=== PATIENT | female | born 1950 | race Caucasian/White ===

== ENCOUNTER → 2020-04-19 09:54 | Outpatient (BNVA) | payer MEDICARE, MEDICAID, SELFPAY | PROVIDERS: PCP Internal Medicine; Referring Provider Internal Medicine; Visit Provider Surgery | DX: E66.9 Obesity, unspecified (principal); Z68.30 Body mass index [BMI] 30.0-30.9, adult; K91.2 Postsurgical malabsorption, not elsewhere classified; Z98.84 Bariatric surgery status | CPT/HCPCS: 99212 ==

== ENCOUNTER 2020-04-28 09:22 | Outpatient (REF) | payer MEDICARE, MEDICAID, SELFPAY ==
[2020-04-28 11:19] LABS: MANUAL DIFF FLAG NO
[2020-04-28 11:29] LABS: Basophils Percent Auto 0.5 % (0-2); Eosinophils Absolute Auto 0.1 X10*3/uL (0.0-0.4); Hematocrit 38.6 % (37-47); Hemoglobin 12.4 g/dl (12.0-16.0); Imm Gran Abs Auto 0.01 X10*3/uL (0.00-0.03); Imm Gran Pct Auto 0.3 % (0.0-0.4); Lymphocytes Percent Auto 51.3 % (20-40); Mean Corpuscular HGB Conc 32.1 g/dl (31.0-35.0); Mean Corpuscular Hemoglobin 29.3 pg (27.0-33.0); Mean Corpuscular Volume 91.3 fL (80-98); Mean Platelet Volume 10.5 fL (9.4-12.3); Monocytes Absolute Auto 0.3 X10*3/uL (0.1-1.2); Monocytes Percent Auto 7.1 % (2-11); Neutrophils Absolute Auto 1.5 X10*3/uL (2.0-8.3); Neutrophils Percent Auto 37.8 % (45-73); Platelet Count 246 X10*3/uL (160-400); Red Blood Count 4.23 X10*6/uL (4.20-5.50); Red Cell Distribution Width 13.2 % (11.0-16.0)
[2020-04-28 12:12] LABS: Alanine Aminotransferase 14 U/L (0-31); Albumin Level 3.9 g/dL (3.5-5.0); Alkaline Phosphatase 79 U/L (39-117); Aspartate Amino Transferase 17 U/L (5-31); Bilirubin Total 0.5 mg/dL (0.0-1.0); Blood Urea Nitrogen 17 mg/dL (9-16); Cholesterol 182 mg/dL; Estimated Glomerular Filt Rate > 60; Glucose Fasting 89 mg/dL (60-99); HDL Cholesterol 65 mg/dL; Iron 134 mcg/dL (30-160); LDL Cholesterol Calculated 102 mg/dl; Percent Iron Saturation 41 % (15-50); Total Iron Binding Capacity 329 mcg/dL (228-428); Total Protein 6.6 g/dL (6.5-8.0); Triglycerides 75 mg/dL; Unsaturated Iron Binding 195 ug/dL
[2020-04-28 12:36] LABS: Vitamin B12 346 pg/mL (200-900)
[2020-04-28 13:05] LABS: Anion Gap 11 (12-20); Calcium 8.8 mg/dL (8.4-10.2); Carbon Dioxide 27 mmol/L (22-29); Chloride 105 mmol/L (96-108); Potassium 4.2 mmol/l (3.3-5.1); Sodium 139 mmol/L (135-145)
[2020-04-28 13:35] LABS: Vitamin D 25-OH Total 25.7 ng/mL (>30)
[2020-05-03 19:11] LABS: Vitamin B1 12 nmol/L (8-30)
[2020-05-03 19:26] LABS: Vitamin A 46 mcg/dL (38-98)
== END 2020-04-28 09:23 | disposition home or self-care (01) ==
LOC: HO.LAB 09:22
PROVIDERS: Absent Provider Surgery; PCP Internal Medicine; Visit Provider Internal Medicine
DX: Z01.818 Encounter for other preprocedural examination (principal); Z20.828 Contact with and (suspected) exposure to other viral communicable diseases; K91.2 Postsurgical malabsorption, not elsewhere classified; Z90.3 Acquired absence of stomach [part of]
CPT/HCPCS: 36415; 80053; 80061; 82306; 82607; 83540; 84425; 84590; 85025; C9803; U0003

== ENCOUNTER → 2020-07-01 08:21 | Outpatient (BNVA) | payer MEDICARE, MEDICAID, SELFPAY | PROVIDERS: PCP Internal Medicine; Visit Provider Physician Assistant | DX: E66.9 Obesity, unspecified (principal); K91.2 Postsurgical malabsorption, not elsewhere classified; Z90.3 Acquired absence of stomach [part of]; Z68.30 Body mass index [BMI] 30.0-30.9, adult | CPT/HCPCS: Q3014 ==

== ENCOUNTER → 2020-07-13 07:47 | Outpatient (BNVA) | payer MEDICARE, MEDICAID, SELFPAY | PROVIDERS: PCP Internal Medicine; Visit Provider Dietitian, Registered ==

== ENCOUNTER → 2020-08-13 08:29 | Outpatient (BNVA) | payer MEDICARE, MEDICAID, SELFPAY | PROVIDERS: PCP Internal Medicine; Visit Provider Physician Assistant ==

== ENCOUNTER → 2020-09-17 08:16 | Outpatient (BNVA) | payer MEDICARE, MEDICAID, SELFPAY | PROVIDERS: PCP Internal Medicine; Visit Provider Physician Assistant | DX: E66.9 Obesity, unspecified (principal) | CPT/HCPCS: Q3014 ==

== ENCOUNTER → 2020-11-02 11:08 | Outpatient (BNVA) | payer MEDICARE, MEDICAID, SELFPAY | PROVIDERS: PCP Internal Medicine; Visit Provider Physician Assistant | DX: E66.9 Obesity, unspecified (principal); K91.2 Postsurgical malabsorption, not elsewhere classified; Z68.30 Body mass index [BMI] 30.0-30.9, adult; Z90.3 Acquired absence of stomach [part of] | CPT/HCPCS: 99212 ==

== ENCOUNTER → 2021-01-25 10:03 | Outpatient (BNVA) | payer MEDICARE, MEDICAID, SELFPAY | PROVIDERS: PCP Internal Medicine; Referring Provider Internal Medicine; Visit Provider Dietitian, Registered | DX: E66.9 Obesity, unspecified (principal); Z68.32 Body mass index [BMI] 32.0-32.9, adult | CPT/HCPCS: 97803 ==

== ENCOUNTER 2021-06-30 11:32 | Outpatient (REF) | payer MEDICARE, MEDICAID, SELFPAY ==
[2021-06-30 12:58] LABS: MANUAL DIFF FLAG NO
[2021-06-30 13:21] LABS: Basophils Percent Auto 0.3 % (0-2); Eosinophils Absolute Auto 0.1 X10*3/uL (0.0-0.4); Hematocrit 39.5 % (37.0-47.0); Hemoglobin 12.9 g/dl (12.0-16.0); Imm Gran Abs Auto 0.01 X10*3/uL (0.00-0.03); Imm Gran Pct Auto 0.2 % (0.0-0.4); Lymphocytes Absolute Auto 2.4 X10*3/uL (1.2-4.9); Mean Corpuscular HGB Conc 32.7 g/dl (31.0-35.0); Mean Corpuscular Hemoglobin 29.4 pg (27.0-33.0); Mean Platelet Volume 10.1 fL (9.4-12.3); Monocytes Absolute Auto 0.5 X10*3/uL (0.1-1.2); Monocytes Percent Auto 7.9 % (2-11); Neutrophils Absolute Auto 2.9 x10*3/uL (2.0-8.3); Neutrophils Percent Auto 49.6 % (45-73); Platelet Count 312 X10*3/uL (160-400); Red Blood Count 4.39 X10*6/uL (4.20-5.50); Red Cell Distribution Width 12.6 % (11.0-16.0); White Blood Count 5.9 X10*3/uL (4.8-10.8)
[2021-06-30 13:41] LABS: Estimated Average Glucose 108 mg/dL; Hemoglobin A1c % 5.4 %
[2021-06-30 14:02] LABS: Alanine Aminotransferase 12 U/L (0-31); Alkaline Phosphatase 89 U/L (39-117); Anion Gap 12 (12-20); Aspartate Amino Transferase 17 U/L (5-31); Bilirubin Total 0.4 mg/dL (0.0-1.0); Blood Urea Nitrogen 15 mg/dL (9-16); C Reactive Protein 0.25 mg/dL (< or = 0.50); Calcium 9.9 mg/dL (8.4-10.2); Carbon Dioxide 28 mmol/L (22-29); Chloride 106 mmol/L (96-108); Cholesterol 202 mg/dL; Estimated Glomerular Filt Rate > 60; Glucose Fasting 90 mg/dL (60-99); HDL Cholesterol 68 mg/dL; Iron 78 mcg/dL (30-160); LDL Cholesterol Calculated 118 mg/dl; Percent Iron Saturation 22 % (15-50); Potassium 4.3 mmol/L (3.3-5.1); Sodium 142 mmol/L (135-145); Total Iron Binding Capacity 362 mcg/dL (228-428); Total Protein 7.4 g/dL (6.5-8.0); Triglycerides 83 mg/dL; Unsaturated Iron Binding 284 ug/dL
[2021-06-30 14:24] LABS: Ferritin 25 ng/mL (10-250); TSH reflex Free T4 0.52 uIU/mL (0.32-4.0); Vitamin D 25-OH Total 25.6 ng/mL (>30)
[2021-06-30 14:59] LABS: Vitamin B12 317 pg/mL (200-900)
[2021-07-01 18:01] LABS: Calcium (PTHI) 9.6 mg/dL (8.6-10.4); PTHI 65 pg/mL (14-64)
[2021-07-05 21:06] LABS: Vitamin A 27 mcg/dL (38-98)
[2021-07-06 01:52] LABS: Zinc 78 mcg/dL (60-130)
[2021-07-06 16:31] LABS: Vitamin B1 10 nmol/L (8-30)
== END 2021-06-30 11:33 | disposition home or self-care (01) ==
LOC: HO.LAB 11:32
PROVIDERS: Physician Assistant; PCP Internal Medicine; Referring Provider Internal Medicine; Visit Provider Physician Assistant Surgical
DX: K91.2 Postsurgical malabsorption, not elsewhere classified (principal); E66.01 Morbid (severe) obesity due to excess calories; Z68.30 Body mass index [BMI] 30.0-30.9, adult; E03.9 Hypothyroidism, unspecified; Z90.3 Acquired absence of stomach [part of]
CPT/HCPCS: 36415; 80053; 80061; 82306; 82607; 82728; 82746; 83036; 83540; 83970; 84425; 84443; 84590; 84630; 85025; 86140; 99212

== ENCOUNTER → 2021-08-09 08:08 | Outpatient (BNVA) | payer MEDICARE, MEDICAID, SELFPAY | PROVIDERS: PCP Internal Medicine; Visit Provider Dietitian, Registered | DX: E66.9 Obesity, unspecified (principal) | CPT/HCPCS: 97803 ==

== ENCOUNTER 2024-03-10 09:54 | Outpatient (REF) | payer MEDICARE, MEDICAID, SELFPAY ==
[2024-03-10 16:53] LABS: Bacterial Vaginosis PCR NEGATIVE (Negative); Candida Group PCR NOT DETECTED (Not Detect); Candida glab krusei PCR NOT DETECTED (Not Detect); Trichomonas vaginalis PCR NOT DETECTED (Not Detect)
[2024-03-10 17:16] LABS: CT PCR NOT DETECTED (Not Detect.); NG PCR NOT DETECTED (Not Detect.)
[2024-03-12 18:24] LABS: HPV mRNA E6/E7 Not Detected (Not Detected)
== END 2024-03-10 09:55 | disposition home or self-care (01) ==
LOC: HO.LNP 09:54
PROVIDERS: PCP Internal Medicine; Visit Provider Obstetrics & Gynecology
DX: N89.8 Other specified noninflammatory disorders of vagina (principal)
CPT/HCPCS: 0352U; 87491; 87591; 87624; 88175; 99202

== ENCOUNTER 2024-03-10 09:54 | Outpatient (AMB) | payer MEDICARE, MEDICAID, SELFPAY ==
--- NOTE | 2024-03-10 10:20 | MHC.OFFVIS ---
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 Information Interpreted: non-clinical & clinical Denture Model Maker: Denture Model Maker Present (Evonne SHEIKH) Accompanied by: Self / Same As Patient Allergies meperidine [From DEMEROL] Allergy (Unknown, Unverified 03/10/24 10:26) NAUSEA/VOMITING metaxalone [From SKELAXIN] Allergy (Unknown, Unverified 03/10/24 10:26) HIVES Sulfa (Sulfonamide Antibiotics) [SULFA (SULFONAMIDE ANTIBIOTICS)] Allergy (Unknown, Unverified 03/10/24 10:26) NAUSEA/VOMITING PLASTIC TAPE Allergy (Unknown, Uncoded 03/10/24 10:26) REDNESS Post menopausal: Yes HPI Comments Details: Presenting complaining of a history of vaginal discharge for 2 days last week. The discharge was greenish in color with no blood, associated with pelvic cramping. No other associated symptoms. Last Pap smear was in 03 negative [facility] Medical History Rheumatoid arthritis Obesity (BMI 30-39.9) Hypothyroidism Polymyalgia Restless legs syndrome Pernicious anemia Neuralgia Plantar fasciitis Depression Anxiety Sleep apnea with use of continuous positive airway pressure (CPAP) GERD (gastroesophageal reflux disease) Erosive (osteo)arthritis Chronic ear infection Chronic sinus infection Herpes Traumatic diastasis of symphysis pubis Surgical History History of repair of hiatal hernia History of sleeve gastrectomy Hx of colonoscopy S/P cataract surgery S/P trigger finger release S/P D&C (status post dilation and curettage) S/P Achilles tendon repair Hx laparoscopic cholecystectomy Hx of tubal ligation Family History Father Heart disease Mother Heart disease Hx of CABG Lung cancer Brother No problems noted. Brother No problems noted. Brother No problems noted. Brother No problems noted. Brother No problems noted. Brother No problems noted. Sister No problems noted. Sister No problems noted. Sister No problems noted. Son No problems noted. Daughter No problems noted. Social History Alcohol intake: never Patient Tobacco Use Status: Never used Tobacco Review of Systems Const All systems reviewed & are unremarkable except as noted in HPI and below Physical Exam General: Yes no CVA tenderness External Female Exam: normal external appearance and normal appearance of the urethra Speculum Exam - Vagina: normal appearance of the vagina, normal palpation, no lesions and no masses Speculum Exam - Cervix: normal appearance of the cervix, normal palpation, no lesions, no masses and nontender Bimanual exam- vagina & uterus: normal bimanual exam, normal palpation, uterine size normal, normal palpation, uterine shape normal, No Cervical tenderness present and non-tender Bimanual Exam- Adnexa, other: normal adnexae Back/Spine/Pelvis Back: no CVA tenderness Assessment & Plan Assessment & Plan (1) Vaginal discharge: Code(s): N89.8 - Other specified noninflammatory disorders of vagina Category: Medical Plan: GC/CT with BV panel and pelvic ultrasound ordered. Instructions given the patient to schedule pelvic ultrasound and a follow-up appointment within 2 weeks. All questions answered, the patient verbalized understanding Orders: Orders US pelvic and transvaginal Today N89.8 - Other specified noninflammatory disorders of vagina Coding Level of Care Code New Pt Level 3 (10730) Diagnoses Vaginal discharge N89.8
[2024-03-10 10:25] VITALS: BP 122/86; BMI 32.7
== END 2024-03-10 10:48 | disposition home or self-care (01) ==
PROVIDERS: PCP Internal Medicine; Visit Provider Obstetrics & Gynecology
DX: N89.8 Other specified noninflammatory disorders of vagina (principal)
CPT/HCPCS: 99203

== ENCOUNTER 2024-03-14 10:55 | Outpatient (REF) | payer MEDICARE, MEDICAID, SELFPAY ==
--- NOTE | ~2024-03-14 | US_ITS ---
EXAMINATION: US PELVIS CLINICAL INFORMATION: Vaginal discharge. COMPARISON: None available. TECHNIQUE: Ultrasound of the pelvis is performed using both transabdominal and transvaginal transducers. Transvaginal imaging is performed due to inadequate visualization transabdominally. FINDINGS: Uterus: The uterus is retroverted and measures 5.3 x 2.3 x 3.4 cm. The double wall endometrial thickness is 2 mm. The uterus is smooth in contour and has normal myometrial echogenicity. No visible fibroid. Adnexa: Both ovaries are visualized. There is trace pelvic fluid. Right ovary measures 1.6 x 1.3 x 0.8 cm for a volume of 0.9 mL. Left ovary measures 1.3 x 1.4 x 0.9 cm for a volume of 0.9 mL. US/US pelvic and transvaginal IMPRESSION: Unremarkable pelvic ultrasound. Electronically signed by: Alonzo Andrade MD 05/01/2024 12:24 PM MALOU
== END 2024-03-14 10:56 | disposition home or self-care (01) ==
LOC: HO.US 10:55
PROVIDERS: PCP Internal Medicine; Visit Provider Obstetrics & Gynecology
DX: N89.8 Other specified noninflammatory disorders of vagina (principal)
CPT/HCPCS: 76830; 76856

== ENCOUNTER 2024-08-11 10:25 | Outpatient (AMB) | payer MEDICARE, MEDICAID, SELFPAY ==
--- NOTE | 2024-08-11 10:27 | MHC.OFFVIS ---
Intake Visit Reasons: u/s follow up Stevedore Hold: Stevedore Hold Present (Chelsea) Accompanied by: Self / Same As Patient Allergies meperidine [From DEMEROL] Allergy (Unknown, Verified 08/11/24 10:28) NAUSEA/VOMITING metaxalone [From SKELAXIN] Allergy (Unknown, Verified 08/11/24 10:28) HIVES Sulfa (Sulfonamide Antibiotics) [SULFA (SULFONAMIDE ANTIBIOTICS)] Allergy (Unknown, Verified 08/11/24 10:28) NAUSEA/VOMITING PLASTIC TAPE Allergy (Unknown, Uncoded 03/10/24 10:26) REDNESS HPI Comments Details: Presenting for follow-up regarding vaginal discharge. Since then discharge has resolved completely, the patient is complaining of urine incontinence upon coughing laughing or lifting heavy objects no urgency or urge incontinence no dysuria. The workup done included co testing negative, GC/CT with BV panel negative. Pelvic ultrasound showed the following: Uterus: The uterus is retroverted and measures 5.3 x 2.3 x 3.4 cm. The double wall endometrial thickness is 2 mm. The uterus is smooth in contour and has normal myometrial echogenicity. No visible fibroid. Adnexa: Both ovaries are visualized. There is trace pelvic fluid. Right ovary measures 1.6 x 1.3 x 0.8 cm for a volume of 0.9 mL. Left ovary measures 1.3 x 1.4 x 0.9 cm for a volume of 0.9 mL. [facility] Medical History Rheumatoid arthritis Obesity (BMI 30-39.9) Hypothyroidism Polymyalgia Restless legs syndrome Pernicious anemia Neuralgia Plantar fasciitis Depression Anxiety Sleep apnea with use of continuous positive airway pressure (CPAP) GERD (gastroesophageal reflux disease) Erosive (osteo)arthritis Chronic ear infection Chronic sinus infection Herpes Traumatic diastasis of symphysis pubis Surgical History History of repair of hiatal hernia History of sleeve gastrectomy Hx of colonoscopy S/P cataract surgery S/P trigger finger release S/P D&C (status post dilation and curettage) S/P Achilles tendon repair Hx laparoscopic cholecystectomy Hx of tubal ligation Family History Father Heart disease Mother Heart disease Hx of CABG Lung cancer Brother No problems noted. Brother No problems noted. Brother No problems noted. Brother No problems noted. Brother No problems noted. Brother No problems noted. Sister No problems noted. Sister No problems noted. Sister No problems noted. Son No problems noted. Daughter No problems noted. Social History Alcohol intake: never Patient Tobacco Use Status: Never used Tobacco Review of Systems Const All systems reviewed & are unremarkable except as noted in HPI and below Reports as per HPI and Reports no additional complaints GI Reports no additional complaints Reports no additional complaints Assessment & Plan Assessment & Plan (1) Vaginal discharge: Comment: Resolved Code(s): N89.8 - Other specified noninflammatory disorders of vagina Category: Medical Plan: Discussed with the patient the results of the GC/CT with BV panel , co testing and pelvic ultrasound. The patient was reassured. Instructions given the patient to call in case any vaginal bleeding, or if vaginal discharge symptoms recur. All questions answered, the patient verbalized understanding (2) Urine incontinence: Code(s): R32 - Unspecified urinary incontinence Category: Medical Plan: Discussed with the patient the different types of Urine incontinence, stress urinary incontinence, intrinsic sphincter deficiency, overactive bladder and its work up. We will refer to Urology. All questions answered, the patient verbalized understanding. Orders: Referrals Urology Referral R32 - Unspecified urinary incontinence Coding Level of Care Code Est Pt Level 3 (05528) Diagnoses Vaginal discharge N89.8 Urine incontinence R32
--- OUTSIDE RECORDS SUMMARY | 2024-08-11 11:42 | XMS_ITS | Continuity of Care Document ---
Author Organization [facility] [address] [place] [address] Phone [phone] Care Team Providers Care Blueprint Clerk Name Role Phone Jose Quintero M.D. Care Team Information Recei yareli [phone] Problems Active Problems Provider Date Gastroesophageal reflux disease Kristy Taylor M.D. Onset: 08/16/2022 Osteoporosis Kristy Szymanski M.D. Ons et: 08/16/2022 Multinodular goiter Kristy Szymanski M.D. Onset: 08/16/2022 Polymyalgia rheumatica Freddy Ribeiro Onset: 08/16/2022 Depressive disorder Kristy Szymanski M.D. Onset: 08/16/2022 Obesity Kristy Szymanski M.D. Ons et: 08/16/2022 Localized, primary osteoarth ritis of the hand Kristy Szymanski M.D. Onset: 08/16/2022 Subclinical hyperthyroidism Kristy clemons M.D. Onset: 08/18/2022 Obstructive sleep apnea syndrome Kristy Muhammad M.D. 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 02/24/2024 Calcium 600 + [id number] Tablets 1 by mouth every day Kristy Szymanski M.D. 02/24/2024 Escitalopram [id number] Tablets Take 1 & 1/2 Tablets By Mouth Daily Jose Quintero M.D. Pramipexole Dihydrochloride0.125mg Tablets Take 2 Tablets By Mouth AT Bedtime Unknown [id number] Capsules Take One Capsule By Mouth Twice A Day leonardn Naveen Watkins, [id number] Tablets Take 1 Tablet By Mouth Twice Weekly Jose Quintero M.D. Diclofenac Sodium1% Gel Apply 4 Times A Day as Needed For Pain Unknown Atorvastatin [id number] Tablets Take One Tablet By Mouth Every Day Unknown Pvnulkh2oe/100ML Solution 06/2019, 10/2020, 08/2022 Kristy Szymanski M.D. [id number] Capsules DR 1 every day as needed Unknown Steph [id number] Tablets 1 by mouth every day Unknown Vital Signs Date Vital Result Comment 02/07/2024 2:34pm BP Systolic 118 mmHg BP Diastolic 76 mmHg Heart Rate 82 /min Height 58.5 inches 4'10.50 Weight 199.00 lb BMI (Body Mass Index) 40.9 kg/m2 Results Test Acquired Date Facility Test Result H/L Range N ote Basic Metabolic Panel (8) 02/12/2024 [facility] Glucose 96 mg/dL 70-99 BUN 15 mg/dL 8-27 Creatinine 0.60 mg/dL 0.57-1.00 eGFR 96 mL/min/1.7 3 >59 BUN/Creatinine Ratio 25 12-28 Sodium 141 mmol/L 134-144 Potassium 4.5 mmol/L 3.5-5.2 Chloride 106 mmol/L 96-106 Carbon Dioxide, Total 23 mmol/L 20-29 Calcium 9.2 mg/dL 8.7-10.3 Laboratory test finding 02/12/2024 [facility] TSH Rfx on Abnormal to Free T4 1.070 uIU/mL 0.450-4.5 00 Vitamin D, 25-Hydroxy, Total 25 ng/mL Low 1 Laboratory test finding 02/11/2024 [facility] TSH RFX On Abnormal To Free T4 <pending> Vitamin D 25 Hydroxy Esoterix <pending> Basic Metabolic Panel 08/18/2022 [facility] Glucose 94 mg/dL (70-99) BUN 19 mg/dL (8-23) Creatinine 0.5 mg/dL (0.5-1.0) Sodium 141 mmol/L (133-145) Potassium 4.1 mmol/L (3.6-5.2) Chloride 104 mmol/L (98-107) Bicarbonate 30 mmol/L High (22-29) Anion Gap 7 (4-17) Calcium 9.8 mg/dL (8.6-10.5 ) Estimated GFR Creatinine 100 ML/MIN/1.7 3M2 2 Laboratory test finding 08/18/2022 [facility] 25Oh Vitamin D 23.4 NG/ML (20-50) TSH With Reflex To FT4 1.17 uIU/mL (0.4-4.2) Albumin 4.2 GM/DL (3.4-4.8) 1 Reference Range: All Ages: Target levels 30 - 100 2 Creatinine based est imated glomerular filtration (eGFR) in adults is calculated using the [employer] recommended 2020 CKD-EPI equation. Estimates GFR from serum creatinine, age and sex. Procedures Date Code Description Status 02/21/2023 NSHOWOFF No Show Office Visit Complet ed 08/18/2022 01930 Collection Of Venous Blood B y Venipuncture Completed Medical Devices Description No Information Available Encounters Type Date Location Provider Dx Diagnosis Office Visit 02/07/2024 2:30p Main Office Kristy Szymanski M.D. E04.2 Nontoxic multinodular goiter M81.0 Age-related osteopor osis w/o current pathological fracture E05.90 Thyrotoxicosis, unsp without thyrotoxic crisis or storm Assessments Date Code Description Provider 02/07/2024 E04.2 Nontoxic multinodular goiter Kristy Szymanski M.D. 02/07/2024 M81.0 Age-related oste oporosis without current pathological fracture Kristy Szymanski M.D. 02/07/2024 E05.90 Thyrotoxicosis, unspecified without thyrotoxic crisis or storm Kristy Szymanski M.D. Plan of Treatment 08/18/2022 - Kristy Szymanski M.D.* E04.2 Nontoxic multinodular goiter * M81.0 Age-related osteoporosis without current pathological fracture * E05.90 Thyrotoxicosis, unspecified without thyrotoxic crisis or storm* New Xrays:* Ultrasound Head And Neck Soft Tissues, Scheduled: 09/12/22 Functional Status Description No Information Available Mental Status Description No Information Available Referrals Description No Information Available
--- OUTSIDE RECORDS SUMMARY | 2024-08-11 11:43 | XMS_ITS | Data Portability ---
Author Organization [place] - [facility], Allergy Address [address] [address] Care Team Providers Care [employer] Name Role Phone CAROLA YEPEZ Primary Care Provider [phone] Assessment Encounter Date Assessment Date Assessment LastModified by Organization Details LastModified Time 11/21/2023 11/21/2023 72 year old female presents today for evaluation of one year of hoarseness. She is a lifetime non smoker. Medical history significant for GERD, allergies and KECIA. Fiberoptic laryngoscopy completed today demonstrates reflux changes; postcricoid swelling, interarytenoid thickening and moderate swelling of the true cords. There is some sticky mucus noted as well. Recommend adding a Pepcid at bedtime, given she is still having breakthrough heartburn symptoms despite Nexium. Also encouraged her to drink more water during the day. We will plan on follow up in six weeks. If no improvement, may refer her back to her GI physician for better reflux control. po Not available 11/21/2023 12:06:22 01/16/2024 01/16/2024 73 year old female with chronic hoarseness, improved with adding Pepcid to her PPI therapy. Recommend she continue with current regimen since it is working well for her. She understands that she needs to follow up yearly if we are going to continue to prescribe this medication, or she can have her PCP take over. po Not available 01/16/2024 13:39:47 Plan of Treatment Reminders Order Date Submit Date Provider Last Modified By Organization Details Last Modified Time Details Appointments None recorded. Lab None recorded. Referral None recorded. Procedures None recorded. Surgeries None recorded. Imaging None recorded. Medication Orders famotidine 20 mg tablet 2023 024 [id number], [address] [place], [address], 4 13:40:03 famotidine 20 mg tablet 2023 [facility], [address] [place], [address], 4 11:43:18 Patient TargetsNo targets recorded. Patient InstructionsNo instructions recorded. Reason for Referral None Reported. Problems Name Problem SNOMED Code Status Onset Date Resolution Date Notes Provider Name and Address Organization Details Recorded Time Otorrhea of right ear 72942489706 55175 Active 2016 Otorrhea, right ear; Note: Date Diagnosed : 04/19/2017 2:28 PM (H92.11) Not Available [facility] 4 02:56:19 Acute sialoaden itis 002486223 Active 2016 Acute sialoaden itis; Note: Date Diagnosed : 11/14/2016 4:37 PM (K11.21) Not Available [facility] 4 02:56:21 Acute serous otitis media of left ear 65460889096 70061 Active 2016 Acute serous otitis media, left ear; Note: Date Diagnosed : 11/14/2016 4:37 PM (H65.02) Not Available [facility] 4 02:56:20 Difficult y speaking Active 2014 Hoarsenes s; Note: Date Diagnosed : 01/21/2015 11:40 AM (784.49) Not Available [facility] hospital 4 02:56:21 Diffuse otitis externa 75775854 Active 2016 Diffuse otitis externa, right ear; Note: Date Diagnosed : 04/19/2017 2:31 PM (H60.311) Diffuse otitis externa, left ear; Note: Date Diagnosed : 11/14/2016 4:44 PM (H60.312) ; Start Date : 7 Not Available [facility] hospital 4 02:56:21 Sensorine ural hearing loss of bilateral ears 855994534 Active 2017 Sensorine ural hearing loss, bilateral ; Note: Date Diagnosed : 12/17/2017 3:37 PM (H90.3) Not Available [facility] 4 02:56:23 Benign paroxysma l positiona l vertigo 177584203 Active 2016 Benign paroxysma l vertigo, right ear; Note: Date Diagnosed : 07/26/2016 3:00 PM (H81.11) Not Available [facility] 4 02:56:22 Cough 10983262 Active 2018 Cough; Note: Date Diagnosed : 06/25/2018 3:22 PM (R05) Not Available [facility] 4 02:56:22 Obstructi ve sleep apnea syndrome 59523478 Active 2016 Obstructi ve sleep apnea (adult) (pediatri c); Note: Date Diagnosed : 03/07/2017 10:47 AM (G47.33) Not Available [facility] hospital 4 02:56:22 Candidal otitis externa 89748961 Active 2016 Candidal otitis externa; Note: Date Diagnosed : 07/26/2016 3:02 PM (B37.84) Not Available [facility] hospital 4 02:56:22 Atypical facial pain 40002383 Active 2016 Atypical facial pain; Note: Date Diagnosed : 03/07/2017 10:47 AM (G50.1) Not Available [facility] 4 02:56:20 Refractor y migraine 785565549 Active 2016 Other migraine, intractab le, without status migrainos us; Note: Date Diagnosed : 03/07/2017 10:46 AM (G43.819) Not Available Critical [facility] hospital 4 02:56:23 Dizziness and giddiness 793423435 Active 2016 Dizziness and giddiness ; Note: Date Diagnosed : 03/07/2017 10:46 AM (R42) Not Available [facility] 4 02:56:20 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 - [facility] 4 11:42:41 Chronic hoarsenes s 31431696894 05 Active 2023 RAMYA JOHNSON PA-C [address] [facility],[place] [address], [place], [address] , [facility] - [facility] 12:03:51 Problem Notes None recorded. Procedures Surgical History Date Name Laterality Status Provider Name and Address Organization Details Recorded Time 11/21/19 24 Fiberoptic Laryngoscopy (Comprehensive) completed RAMYA JOHNSON PA-C [address] [facility],[place] [address], [place], [address], [facility] - [facility] [place] 11/21/2023 12:03:39 02/17/20 02 procedure on gallbladder completed Manisha Nam [place] - [facility] [place] 11/21/2023 11:37:34 11/17/19 00 laparoscopic sleeve gastrectomy completed Manisha Nam [place] - [facility] [place] 11/21/2023 11:37:59 Imaging Results None recorded. Procedure Notes None recorded. Medical Equipment None Reported. Allergies Allergen ID Allergen Name Allergen Category Reaction Reaction Severity Criticality Documentation Date Start Date Code Code System Note Provider Name and Address Organization Details Recorded Time 566097 meperidin e hydrochlo ride medicatio n other Not available Not available 10/30/2023 35526 5 RxNorm React ion: unkno wn, unspe cifie d;; Not Available [facility] 4 01:25:00 726640 Demerol medicatio n Not available Not available Not available 11/21/2023 50050 1 RxNorm Manisha martinez [place] - [facility] 4 11:31:28 368503 morphine medicatio n Not available Not available Not available 11/21/2023 7052 RxNorm Manisha Cyril martinez [place] - [facility] 4 11:31:41 Medications Name Sig Start Date Stop Date Status Note LastModified by Organization Details LastModified Time celecoxib 200 mg capsule TAKE ONE CAPSULE BY MOUTH EVERY DAY NEEDED FOR PAIN active Not Available Not Available No t Available neomycin- polymyxin -hydrocor t 3.5 mg/mL-10, 000 unit/mL-1 % ear solution 2016 active Medicati on ID: [id number] D uration Value: 10 Brand Name: neomycin -polymyx in-HC Se nd Method: E-Prescr ibed Sub s Allowed: subs ADIN ventura Instruct ion: INSTILL 4 DROPS FOUR TIMES A DAY DIRECTED FOR 7 DAYS Med icationG enericNa me: neomycin -polymyx in-HC Not Available Not Available Not Available prednison e 10 mg tablet TAKE FOUR TABLETS BY MOUTH EVERY DAY FOR 5 DAYS active Not Available Not Available No t Available doxycycli ne hyclate 100 mg capsule TAKE ONE CAPSULE BY MOUTH TWICE A DAY FOR 14 DAYS active Not Available Not Available No t Available loperamid e 2 mg capsule TAKE 1 CAPSULE BY MOUTH EVERY 4 HOURS NEEDED FOR LOOSE STOOL active Not Available Not Available No t Available trazodone 50 mg tablet 11/20 completed Medicati on ID: [id number] D uration Value: 30 Brand Name: trazodon e Send Method: E-Prescr ibed Sub s Allowed: subs ADIN ventura Instruct ion: TAKE 1-2 TABLETS BY MOUTH AT BEDTIME Medicati onGeneri cName: trazodon e Medica tion ID: [id number] D uration Value: 30 Brand Name: trazodon e Send Method: E-Prescr ibed Sub s Allowed: subs ADIN ventura Instruct ion: TAKE 1-2 TABLETS BY MOUTH AT BEDTIME Medicati onGeneri cName: trazodon e Not Available Not Available Not Available cetirizin e 10 mg tablet TAKE ONE TABLET BY MOUTH EVERY DAY active Not Available Not Available No t Available azithromy chau 250 mg tablet TAKE 2 TABLETS ON FIRST DAY , THEN 1 TABLET DAILY FOR 4 DAYS 11/20 completed Not Available Not Available Not Available Lotrisone 1 %-0.05 % topical cream 11/20 completed Medicati on ID: [id number] P koryrishelby d By Name: Kristy RENAY Hoang nd Name: Lotrison e Send Method: E-Prescr ibed Sub s Allowed: subs OK Speci al Instruct ion: apply to external ear tid X 2 weeks Me dication GenericN paul: Lotrison e Medica tion ID: [id number] P rescribe d By Name: RENAY Nance nd Name: Lotrison e Send Method: E-Prescr ibed Sub s Allowed: subs OK Specozzie al Instruct ion: apply to external ear tid X 2 weeks Me dication GenericN paul: Lotrison e Not Available Not Available Not Available prednison e 20 mg tablet TAKE TWO TABLETS BY MOUTH EVERY DAY FOR 5 DAYS 11/20 completed Not Available Not Available Not Available tramadol 50 mg tablet TAKE ONE TABLET BY MOUTH TWO TIMES A DAY NEEDED active Not Available Not Available No t Available Prevacid 30 mg capsule,d elayed release 2016 active Medicati on ID: [id number] B rand Name: Prevacid Send Method: E-Prescr ibed Sub s Allowed: subs OK Medic ationGen ericName : Prevacid Not Available Not Available Not Available Macrobid 100 mg capsule 2016 active Medicati on ID: [id number] B rand Name: Macrobid Send Method: E-Prescr ibed Sub s Allowed: subs OK Medic ationGen ericName : Macrobid Not Available Not Available Not Available ofloxacin 0.3 % ear drops 11/14 completed Medicati on ID: [id number] Du ration Value: 10 Reason: () Brand Name: ofloxaci n Send Method: E-Prescr ibed Sub s Allowed: subs OK Medic ationGen ericName : ofloxaci n Not Available Not Available Not Available famotidin e 20 mg tablet TAKE ONE TABLET BY MOUTH EVERY DAY AT BEDTIME active Not Available Not Available No t Available ropinirol e 0.25 mg tablet 2016 active Medicati on ID: [id number] D uration Value: 30 Brand Name: ropiniro le Send Method: E-Prescr ibed Sub s Allowed: subs OK Speci al Instruct ion: TAKE TWO TABLETS BY MOUTH ONCE DAILY AT BEDTIME Medicati onGeneri cName: tato le Not Available Not Available Not Available doxycycli ne monohydra te 100 mg capsule 05/22 completed Medicati on ID: [id number] Du ration Value: 10 Brand Name: doxycycl ine monohydr ate Send Method: E-Prescr ibed Sub s Allowed: subs OK Medic ationGen ericName : doxycycl ine monohydr ate Not Available Not Available Not Available prednison e 50 mg tablet TAKE ONE TABLET BY MOUTH EVERY DAY FOR 5 DAYS active Not Available Not Available No t Available lidocaine 5 % topical patch APPLY ONE PATCH EXTERNAL LY EVERY DAY FOR 12 HOURS ON AND 12 HOURS OFF FOR 15 DAYS active Not Available Not Available No t Available polymyxin B sulfate 10,000 unit-trim ethoprim 1 mg/mL eye drops INSTILL TWO DROPS TO THE AFFECTED EYE S) FOUR TIMES A DAY FOR 7 DAYS active Not Available Not Available No t Available clotrimaz ole 1 % topical solution 05/22 completed Medicati on ID: [id number] P rescribe d By Name: RENAY Nance nd Name: clotripushpa bess Method: E-Prescr ibed Sub s Allowed: subs OK Speci al Instruct ion: 4 drops to affected ear three times a day X 14 days Med icationG enericNa me: clotrima zole Not Available Not Available Not Available pramipexo le 0.125 mg tablet TAKE TWO TABLETS BY MOUTH EVERY EVENING AT BEDTIME active Not Available Not Available No t Available furosemid e 20 mg tablet 11/20 completed Medicati on ID: [id number] D uration Value: 30 Brand Name: furosemi de Send Method: E-Prescr ibed Sub s Allowed: subs OK Speci al Instruct ion: TAKE 1 TO 2 TABLETS ONCE DAILY BY MOUTH Me dication GenericN paul: furosemi de Medic ation ID: [id number] D uration Value: 30 Brand Name: furosemi de Send Method: E-Prescr ibed Sub s Allowed: subs OK Speci al Instruct ion: TAKE 1 TO 2 TABLETS ONCE DAILY BY MOUTH Me dication GenericN paul: furosemi de Not Available Not Available Not Available gabapenti n 100 mg capsule Take 1 capsule 3 times a day by oral route. active Not Available Not Available No t Available ferrous sulfate 325 mg (65 mg iron) tablet,de layed release TAKE ONE TABLET BY MOUTH EVERY DAY active Not Available Not Available No t Available colchicin e 0.6 mg tablet TAKE 1 TABLET BY MOUTH TWICE DAILY FOR 7 DAYS active Not Available Not Available No t Available fluticaso ne propionat e 50 mcg/actua tion nasal spray,kendall pension USE 1 SPRAY IN EACH NOSTRIL TWO TIMES A DAY active Not Available Not Available No t Available naproxen 500 mg tablet TAKE ONE TABLET BY MOUTH EVERY 12 HOURS WITH FOOD OR MILK active Not Available Not Available No t Available amoxicill in 875 mg-potass ium clavulana te 125 mg tablet TAKE ONE TABLET BY MOUTH EVERY 12 HOURS FOR 10 DAYS 11/20 completed Not Available Not Available Not Available Ventolin HFA 90 mcg/actua tion aerosol inhaler USE 2 INHALATI ONS EVERY 4-6 HOURS NEEDED FOR DYSPNEA DIRECTED active Not Available Not Available No t Available oxycodone 5 mg tablet TAKE ONE TABLET BY MOUTH EVERY 6 HOURS FOR 3 DAYS NEEDED FOR PAIN active Not Available Not Available No t Available TobraDex 0.3 %-0.1 % eye drops,kendall pension 4 drop 11/20 completed Medicati on ID: [id number] D uration Value: 14 Prescri bed By Name: RENAY Cardenas nd Name: TobraDex Send Method: E-Prescr ibed Sub s Allowed: subs OK Speci al Instruct ion: apply to right ear as prescrib ed Medic [facility] ericName : TobraDex Medicat ion ID: [id number] D uration Value: 14 Prescri bed By Name: RENAY Cardenas nd Name: TobraDex Send Method: E-Prescr ibed Sub s Allowed: subs OK Speci al Instruct ion: apply to right ear as prescrib ed Medic [facility] ericName : TobraDex Not Available Not Available Not Available escitalop raul 20 mg tablet TAKE 1 AND 1/2 TABLETS BY MOUTH ONCE A DAY active Not Available Not Available No t Available cyclobenz aprine 5 mg tablet TAKE 1 TABLET BY MOUTH 3 TIMES A DAY FOR 3 DAYS 11/20 completed Not Available Not Available Not Available Ciprodex 0.3 %-0.1 % ear drops,kendall pension 4 drop 11/20 completed Medicati on ID: [id number] D uration Value: 14 Prescri bed By Name: RENAY Cardenas nd Name: Ciprodex Send Method: E-Prescr ibed Sub s Allowed: subs OK Medic ationGen ericName : Ciprodex Medicat ion ID: [id number] D uration Value: 14 Prescri bed By Name: RENAY Cardenas nd Name: Ciprodex Send Method: E-Prescr ibed Sub s Allowed: subs OK Medic ationGen ericName : Ciprodex Not Available Not Available Not Available Celebrex active Not Available Not Avai lable Not Available Miralax active Not Available Not Avail able Not Available Nexium active Not Available Not Availa ble Not Available Lexapro active Not Available Not Avail able Not Available Plenvu 140 gram-9 gram-5.2 gram powder packs TAKE THREE PACKETS DISSOLVE D IN WATER DIRECTED active Not Available Not Available No t Available Vitals Date Recorded Body height Body mass index (BMI) Body weight Provider Name and Address Organization Details Last Updated DateTime 01/16/2024 148.59 cm 40.5 kg/m2 06232.7 g [facility] 01/16/2024 13:20:29 Date Recorded Body height Body mass index (BMI) Body weight Provider Name and Address Organization Details Last Updated DateTime 11/21/2023 148.59 cm 40.5 kg/m2 31071.7 g Manisha Fernando [facility] 11/21/2023 11:31:13 Social History None recorded. Functional Status None recorded. Mental Status None recorded. Family History Nothing Reported. Medical History No medical history recorded. Gynecological HistoryNo gynecological history recorded. Obstetrics History GPAL:G 0 P 0 0 0 0 Immunizations Vaccine Type Date Status Note Provider Nam e and Address Organization Details Recorded Time influenza, seasonal, intradermal, preservative free 2 completed Manisha martinez [place] - [facility] 11/21/2023 11:38:19 Pneumococcal conjugate PCV 13 2 completed Manisha martinez [facility] 11/21/2023 11:38:36 Past Encounters Encounter ID Performer Location Encounter Start Date Encounter Closed Date Diagnosis/Indication Diagnosis SNOMED-CT Code Diagnosis ICD10 Code Diagnosis Note [id number] RAMYA JOHNSON PA-C [facility] on [address] [place] [address] [id number] 2 11/21/2023 10:56:00 11/23/2023 13:14:35 Gastroesophageal reflux disease without esophagitis 871735031 K21.9 Chronic hoarseness 70912 54309 105 R49.0 Allergic rhinitis 692976 04 J30.9 [id number] RAMYA JOHNSON PA-C [facility] on [address] [place] [address] [id number] 2 01/16/2024 13:15:07 01/16/2024 13:41:34 Chronic hoarseness 5294151802 105 R49.0 Gastroesop hageal reflux disease without esophagitis 469183082 K21.9 Health Concerns Section Related Observation LastModified by Organization Detai ls LastModified Time None Recorded Concern Status LastModified by Organization Details LastModified Time None Recorded Advance Directives Directive None Recorded Payers Encounter Date Sequence Insurance Name Policy Number Policy Pedroza Covered Member ID Pedroza Member ID Guarantor Name 11/21/2023 1 [place]: [employer] Nery A Soderstrom [id number] Nery Soderstrom 11/21/2023 2 [place] Nery Soderstrom [id number] Nery Soderstrom 01/16/2024 1 [place] [employer] Nery A Soderstrom [id number] Nery Soderstrom 01/16/2024 2 [place] Nery Soderstrom [id number] Nery Soderstrom Notes Date Note Type Note Provider Name and Address Organization Details Recorded Time 11/21/2023 text/html 72 year old mark cervantes presents today for evaluation of voice changes.She reports difficulties with hoarseness started last November. Her voice was significantly affected, she felt as if she could not talk. I did improve around June, but then it became hoarse again with the onset of allergy season. She has no trouble swallowing. No throat pain. History of seasonal allergies. She has undergone immunotherapy in the past. Currently she manages her symptoms with Steph. She has a history of acid reflux. She takes Nexium once daily. She does still have breakthrough symptoms from time to time. She has seen a GI doctor in the past, but has not had an endoscopy yet. She has history of gastric sleeve procedure 3-4 years ago. She is a lifetime non smoker. She does drink coffee, but stops at about 1pm. RAMYA JOHNSON PA-C [address] [facility],[address], [address], [place] - [facility] 11/21/2023 12:07:04 01/16/2024 text/html 72 year old mark cervantes presents today for follow up for hoarseness. She is a lifetime non smoker. Medical history significant for GERD, allergies and KECIA.Fiberoptic laryngoscopy in the office about six weeks ago demonstrated reflux changes and sticky mucus. I suggested adding Pepcid at bedtime and working on oral hydration.She has been taking Pepcid daily and also an Steph. Reports both her reflux and her voice are much better. She has been struggling to drink more water. RAMYA JOHNSON PA-C [address] [facility],[place] [address], [place], [address], [place] [facility] 01/16/2024 13:40:15 OBGyn Episode No OBEpisode recorded.
--- OUTSIDE RECORDS SUMMARY | 2024-08-11 11:43 | XMS_ITS | Encounter Summary ---
Author Organization [facility] Address [address] [place] [address] Care Team Providers Care Loom Technician Name Role Phone Jose Quintero MD Primary Care Provider [phone] Reason for Visit * Reason Comments Foot Pain Closed nondisplaced fracture of lateral cuneiform of right foot with delayed healing, subsequent encounter (Primary Dx); Encounter Details Date Type Department Care Team (Late st Contact Info) Description 07/17/2024 9:15 AM EST Office Visit Orthopedic Surgery - [place] [address] [phone] Vinny Hammond, DP 175 [facility] Jesus [address] [place] [id number] Arthritis of both feet (Primary Dx); Equinus contracture of left ankle; Equinus contracture of right ankle; Capsulitis of left foot Social History Tobacco Use Types Packs/Day Years Used Date Smoking Tobacco: Never Smokeless Tobacco: Never Tobacco Cessation:Counseling Given: Not Answered Alcohol Use Standard Drinks/Week Comments Yes 0 (1 standard drink = 0.6 oz pur e alcohol) 1 -2 a year Comments Unknown Sex and Gender Information Value Date Recorded Sex Assigned at Not on file Legal Sex Female 7:01 AM EST Gender Identity Not on file Sexual Orientation Not on file documented as of this encounter Last Filed Vital Signs Vital Sign Reading Time Taken Comments Blood Pressure - - Pulse - - Temperature - - Respiratory Rate - - Oxygen Saturation - - Inhaled Oxygen Concentration - - Weight 92.5 kg (204 lb) 07/17/2024 9:02 AM EST Height 149.9 cm (4' 11.02 ) 07/17/2024 9:[address] Body Mass Index 41.18 07/17/2024 9:02 AM EST documented in this encounter Progress Notes * Vinny Hammond, DPM - 07/17/2024 9:15 AM ESTAssociated Order(s): Injection tendon or ligament Post-Procedure Diagnose(s): Capsulitis of left foot Referring MD: Leon Last PCP visit: 05/31/2024 IDENTIFIER: @TITLE@ Juan is a 73 y.o. year old female who presents for consultation. CC: Left foot pain HPI: 73-year-old female returns office chief complaint of left foot pain. Patient denies any recent trauma but notes that she has been having extreme soreness on ambulation. Patient has attempted to use p.o. anti-inflammatories without any resolve. Patient rates pain as a 10 on VAS and notes it is limiting her activities of daily living. Patient is here for evaluation treatment ROS: GENERAL: Pt denies nausea, fever, vomiting, chills, or shortness of breath. Pt in NAD. CARDIOLOGY: pt denies chest pain, palpitations LUNGS: pt denies shortness of breath MUSCULOSKELETAL: See HPI, otherwise no joint pain or swelling, back pain, or muscle pain. SKIN: see HPI, otherwise no lesions, rash or itching NEURO: No persistent headache, weakness or numbness The remainder of the review of systems is noncontributory PAST MEDICAL HISTORY: Patient Active Problem List Diagnosis Chest pain KECIA (obstructive sleep apnea) Iron deficiency anemia due to chronic blood loss AVM (arteriovenous malformation) of colon Hx of colonic polyps Gastroesophageal reflux disease without esophagitis Allergic drug reaction B12 deficiency Abnormal uterine bleeding Acute serous otitis media of left ear Acute sialoadenitis Allergic rhinitis Atypical facial pain Benign paroxysmal positional vertigo Candidal otitis externa Chronic hoarseness Cough Depressive disorder Diffuse otitis externa Disorder of vocal cord Dizziness and giddiness Essential hypertension Fibromyalgia Polymyalgia rheumatica (CMS/HCC) Gastric ulcer Herpetic vulvovaginitis Insomnia Intestinal malabsorption following gastrectomy Localized, primary osteoarthritis of hand Major depression, single episode Mixed incontinence Multinodular goiter Obesity Osteoarthritis Osteoporosis Otorrhea of right ear Postmenopausal atrophic vaginitis Refractory migraine Restless legs syndrome Sensorineural hearing loss (SNHL) of both ears Subclinical hyperthyroidism SOCIAL HISTORY: Social History Tobacco Use Smoking status: Never Smokeless tobacco: Never Substance Use Topics Alcohol use: Yes Comment: 1 -2 a year ACTIVE MEDICATIONS: Outpatient Medications Marked as Taking for the 07/17/24 encounter (Office Visit) with Vinny Hammond DPM Medication Sig Dispense Refill acetaminophen (TYLENOL) 325 mg tablet Take 2 tablets (650 mg total) by mouth every 6 (six) hours ifneeded. calcium carbonate-vitamin D3 600 mg-5 mcg (200 unit) per tablet Take by mouth. celecoxib (CeleBREX) 100 mg capsule Take 1 capsule (100 mg total) by mouth 2 (two) times a day. escitalopram (LEXAPRO) 20 mg tablet Take 30 mg by mouth daily. esomeprazole (NexIUM) 10 mg packet Take 10 mg by mouth every morning (before breakfast). fexofenadine-pseudoephedrine (MATT-D) 60-120 mg per 12 hr tablet Take 60 mg by mouth. gabapentin (NEURONTIN) 100 mg capsule Take 100 mg by mouth daily. LORazepam (ATIVAN) 0.5 mg tablet Take 0.5 mg by mouth every 6 hours as needed. multivitamin with minerals (CENTRUM) tablet Take by mouth. pramipexole (MIRAPEX) 0.125 mg tablet ALLERGIES: @ALL@ PHYSICAL EXAM: Height 1.499 m (59.02 ), weight 92.5 kg (204 lb). PODIATRIC EXAMINATION: GENERAL: Patient appears well nourished, with NAD. VASCULAR: Dorsalis pedis pulses are 2/4 bilaterally and Posterior tibial pulses are 2/4 bilaterally. Capillary filling time within normal limits the digits. No pallor on elevation or rubor on dependency. Positive hair growth. No varicosities. Denies rest pain or claudication pain. NEUROLOGICAL: Sharp/dull sensation intact, protective sensation intact 10/10 with 5.07 semmes antonia bilaterally, vibratory sensation with tuning fork intact to the tibial tuberosity. ORTHOPEDIC: Good muscle strength 5/5 of all flexors and extensors. Dorsi flexion of ankle ,10 degrees, plantar flexion WNL. No muscle atroph mostly resolved pain over the dorsal midfoot on palpation without notable redness or swelling. New pain and swelling over the left midfoot. Collapse of the midfoot on stance. Arthritic changes of the tarsometatarsal joint of the left foot. Notable amount of equinus to bilateral lower extremities. DERMATOLOGICAL:.No masses or skin lesions noted. Normal skin temperature, normal skin turgor. BIOMECHANICS: STJ ROM wnl, MTJ ROM wnl, 1st MPJ ROM wnl. IMPRESSION: 1. Arthritis of both feet 2. Equinus contracture of left ankle 3. Equinus contracture of right ankle 4. Capsulitis of left foot PLAN: Pt was seen and examined, history reviewed. Patient with symptoms of arthritic changes in the pedal joints. Patient showed good understanding of etiology of arthritis. Patient is aware that conservative options include padding, over the counter products, orthotics, and shoes. Patient aware that they are other treatments available such as oral anti- inflammatories, injections, and steroid dose packs. Patient understands that these measures are conservative measures to help handle the osteoarthritic flares. Patient with findings of bilateral equinus Patients contracture is directly along the tendon's insertion. Patient at this time would benefit from resting the tendon. Patient would also benefit from calmingdown the flare with the use of anti-inflammatories.. Patient is to take the anti-inflammatories daily with food. Patient to start an aggressive stretching regimen. Patient understands that this will lessen the pull needed from the posterior group. Will re-evaluate at next visit. If no improvement, will consider physical therapy versus bracing. Patient being treated for left foot capsulitis Conservative treatment options discussed and the decision made to try an corticosteroid injection today. Risks and benefits explained to patient. Injection to the area was performed after written consent was obtained. Risks and benefits discussed in detail with patient and include but are not limited to risk of infection risk of recurrence risk of steroid flare. Injection given to the left midfoot of half cc 1% lidocaine half cc of Kenalog 40 Patient understands that the first three days status post injection, the site may feel sore. Patient is to ice and elevate during this time. Patient understands that the injection is to decrease inflammation and reduce flares. Patient understands that it is variable how long the injection lasts. All questions answered. Injection tendon or ligament Indications: pain Details: 25 G needle Medications: 0.5 mL lidocaine (PF) 1 %; 40 mg triamcinolone acetonide 40 mg/mL Informed Consent: Laterality: Left Vinny Hammond DPM documented in this encounter Plan of Treatment Upcoming Encounters Date Type Department Care Team (Late st Contact Info) Description 08/11/2024 2:00 PM EST Office Visit Orthopedic Surgery - [place] [id number] [facility] [address] [place] [phone] Vinny Hammond DPM 175 [facility] [address] [place] [address] documented as of this encounter Procedures Procedure Name Priority Date/Time Associated Diagnosis Comments INJECTION TENDON OR LIGAMENT Routine 07/17/2024 9:15 AM EST Capsulitis of left foot documented in this encounter Results * Injection tendon or ligament (07/17/2024 9:15 AM EST) Narrative Vinny Hammond DPM - 07/17/2024 9:15 AM EST Vinny Hammond DPM ? 07/17/2024 12:47 PM Injection tendon or ligament Indications: pain Details: 25 G needle Medications: 0.5 mL lidocaine (PF) 1 %; 40 mg triamcinolone acetonide 40 mg/mL Informed Consent: ??Laterality: ??Left Vinny Hammond DPM IN CLINIC/BEDSIDE ORDERABLE S Final Result documented in this encounter Visit Diagnoses Diagnosis Arthritis of both feet- Primary Equinus contracture of left ankle Equinus contracture of right ankle Capsulitis of left foot documented in this encounter Administered Medications Inactive Administered Medications - up to 3 most recent administrations Medication Order MAR Action Action Date Dose Rate Site lidocaine (PF) (XYLOCAINE-MPF) 1 % injection 0.5 mL 0.5 mL, injection, Once PRN Procedure, Starting on Tonja 07/17/24 at 0915, For 1 doseIndications:Capsulitis of left foot Given 07/17/2024 9:15 AM EST 0.5 mL triamcinolone acetonide (KENALOG-40) 40 mg/mL injection 40 mg 40 mg, intra-articular, Once PRN Procedure, Starting on Tonja 07/17/24 at 0915, For 1 doseIndications:Capsulitis of left foot Given 07/17/2024 9:15 AM EST 40 mg documented in this encounter Care Teams Loom Technician Relationship Specialty Start Date End Date Jose Quintero MD [address] [place] [address] PCP - General Internal Medicine 09/18/17 documented as of this encounter
--- OUTSIDE RECORDS SUMMARY | 2024-08-11 11:43 | XMS_ITS | Clinical Summary ---
Author Organization 175 [facility] Address [address] [place] [address] Phone Care Team Providers Care Line Cleaner Name Role Phone Jose Yepez MD Primary Care Provider [phone] Allergies Active Allergy Reactions Criticality Noted Date Comments Codeine Nausea And Vomiting 12/21/2021 Isosorbide 03/02/2022 Meperidine Nausea And Vomiting 12/21/2021 Morphine Unknown 05/26/2024 Procaine 03/02/2022 Metaxalone Hives 12/21/2021 Sulfa (Sulfonamide Antibiotics) Nausea And Vomiting 12/21/2021 Medications acetaminophen (TYLENOL) 325 mg tablet Take 2 tablets (650 mg total) by mouth every 6 (six) hours if needed. Active celecoxib (CeleBREX) 100 mg capsule Take 1 capsule (100 mg total) by mouth 2 (two) times a day. Active escitalopram (LEXAPRO) 20 mg tablet Take 30 mg by mouth daily. Active esomeprazole (NexIUM) 10 mg packet Take 10 mg by mouth every morning (before breakfast). Active gabapentin (NEURONTIN) 100 mg capsule Take 100 mg by mouth daily. Active LORazepam (ATIVAN) 0.5 mg tablet Take 0.5 mg by mouth every 6 hours as needed. Active fexofenadine-ps eudoephedrine (MATT-D) 60-120 mg per 12 hr tablet Take 60 mg by mouth. 01/07/2024 Active multivitamin with minerals (CENTRUM) tablet Take by mouth. 02/24/2024 Active calcium carbonate-vitam in D3 600 mg-5 mcg (200 unit) per tablet Take by mouth. 02/24/2024 Active pramipexole (MIRAPEX) 0.125 mg tablet 12/23/2021 Active Hospital, Clinic, or Other Facility Administered Medication Ordered Dose Route Frequency Start Date End Date Status lidocaine (PF) (XYLOCAINE-MPF) 1 % injection 0.5 mLIndications:Capsul itis of left foot .5 mL inj Once PRN Procedure 07/17/2024 07/17/2024 Ended triamcinolone acetonide (KENALOG-40) 40 mg/mL injection 40 mgIndications:Capsul itis of left foot 40 mg IAtc Once PRN Procedure 07/17/2024 07/17/2024 Ended Active Problems Problem Noted Date Diagnosed Date Abnormal uterine bleeding 05/26/2024 Essential hypertension 05/26/2024 Gastric ulcer 05/26/2024 Herpetic vulvovaginitis 05/26/2024 Mixed incontinence 05/26/2024 Postmenopausal atrophic vaginitis 05/26/2024 B12 deficiency 05/01/2024 Iron deficiency anemia due to chronic blood loss 04/29/2024 AVM (arteriovenous malformation) of colon 2023 Hx of colonic polyps 04/29/2024 Chronic hoarseness 11/21/2023 Fibromyalgia 11/14/2023 Insomnia 11/14/2023 Major depression, single episode 11/14/2023 Osteoarthritis 11/14/2023 Restless legs syndrome 11/14/2023 Subclinical hyperthyroidism 08/18/2022 Gastroesophageal reflux disease without esophagi tis 08/16/2022 Depressive disorder 08/16/2022 Polymyalgia rheumatica 08/16/2022 Localized, primary osteoarthritis of hand 2022 Multinodular goiter 08/16/2022 Obesity 08/16/2022 Osteoporosis 08/16/2022 Chest pain 01/31/2022 KECIA (obstructive sleep apnea) 01/31/2022 Intestinal malabsorption following gastrectomy 0 01/03/2022 Cough 06/25/2018 Overview (05/26/2024): Cough; Note: Date Diagnosed: 06/25/2018 3:22 PM (R05) Sensorineural hearing loss (SNHL) of both ears 0 12/17/2017 Overview (05/26/2024): Sensorineural hearing loss, bilateral; Note: Date Diagnosed: 12/17/2017 3:37 PM (H90.3) Diffuse otitis externa 04/19/2017 Overview (05/26/2024): Diffuse otitis externa, right ear; Note: Date Diagnosed: 04/19/2017 2:31 PM (H60.311) Diffuse otitis externa, left ear; Note: Date Diagnosed: 11/14/2016 4:44 PM (H60.312) ; Start Date : 11/14/2016 Otorrhea of right ear 04/19/2017 Overview (05/26/2024): Otorrhea, right ear; Note: Date Diagnosed: 04/19/2017 2:28 PM (H92.11) Allergic rhinitis 03/07/2017 Overview (05/26/2024): Other allergic rhinitis; Note: Date Diagnosed: 03/07/2017 10:49 AM (J30.89) Note: Date Diagnosed: 03/07/2017 10:49 AM (J30.89) Atypical facial pain 03/07/2017 Overview (05/26/2024): Atypical facial pain; Note: Date Diagnosed: 03/07/2017 10:47 AM (G50.1) Dizziness and giddiness 03/07/2017 Overview (05/26/2024): Dizziness and giddiness; Note: Date Diagnosed: 03/07/2017 10:46 AM (R42) Refractory migraine 03/07/2017 Overview (05/26/2024): Other migraine, intractable, without status migrainosus; Note: Date Diagnosed: 03/07/2017 10:46 AM (G43.819) Acute serous otitis media of left ear 11/14/2016 Overview (05/26/2024): Acute serous otitis media, left ear; Note: Date Diagnosed: 11/14/2016 4:37 PM (H65.02) Acute sialoadenitis 11/14/2016 Overview (05/26/2024): Acute sialoadenitis; Note: Date Diagnosed: 11/14/2016 4:37 PM (K11.21) Benign paroxysmal positional vertigo 07/26/2016 Overview (05/26/2024): Benign paroxysmal vertigo, right ear; Note: Date Diagnosed: 07/26/2016 3:00 PM (H81.11) Candidal otitis externa 07/26/2016 Overview (05/26/2024): Candidal otitis externa; Note: Date Diagnosed: 07/26/2016 3:02 PM (B37.84) Disorder of vocal cord 02/19/2015 Overview (05/26/2024): Vocal Cord Nodule; Note: Date Diagnosed: 02/19/2015 4:48 PM (478.5) Allergic drug reaction Overview (05/01/2024): DX:Allergic drug reaction Encounters Date Type Department Care Team Description 07/17/2024 9:15 AM EST Office Visit Orthopedic Surgery - [address] [phone] Vinny Hammond DPM Arthritis of both feet (Primary Dx); Equinus contracture of left ankle; Equinus contracture of right ankle; Capsulitis of left foot from Last 3 Months Surgical History Surgery Date Site/Laterality Comments OTHER SURGICAL HISTORY PROCEDURE: HISTORY OTHER; COMMENT: Gastric sleeve CHOLECYSTECTOMY PROCEDURE: HISTORICAL CHOLECYSTECTOMY Medical History Medical History Date Comments Family history of cardiovasc ular disease DX:Family history of cardiov ascular disease Jaw pain 12/21/2021 DX:Jaw pain Chest pain 12/21/2021 DX:Chest pain Neck pain DX:Neck pain Depression DX:Depression GERD (gastroesophageal reflu x disease) DX:GERD (gastroesophageal re flux disease) Restless leg syndrome DX:Restles s leg syndrome Class 2 obesity DX:Class 2 obesi ty Allergic drug reaction DX:Allerg ic drug reaction Piriformis syndrome DX:Piriformi s syndrome Obesity DX:Obesity Family History Medical History Relation Name Comments CABG Brother 1 Heart attack Brother 2 CABG Father CABG Mother Relation Name Status Comments Brother 1 Brother 2 Father Mother Social History Tobacco Use Types Packs/Day Years [...] on file Sexual Orientation Not on file Obstetrics History Last Filed Vital Signs Vital Sign Reading Time Taken Comments Blood Pressure 122/80 03/07/2022 9:56 AM EDT Sitting R Arm Pulse 63 03/07/2022 9:56 AM EDT Temperature - - Respiratory Rate - - Oxygen Saturation - - Inhaled Oxygen Concentration - - Weight 92.5 kg (204 lb) 07/17/2024 9:02 AM EST Height 149.9 cm (4' 11.02 ) 07/17/2024 9:02 AM EST Body Mass Index 41.18 07/17/2024 9:02 AM EST Plan of Treatment Upcoming Encounters Date Type Department Care Team (Late st Contact Info) Description 08/11/2024 2:00 PM EST Office Visit Orthopedic Surgery - [place] [address] [phone] Vinny Hammond, TYLER [address] [address] Health Maintenance Due Date Last Done Comments Breast Cancer Screening 1950 DTaP,Tdap,and Td Vaccines (1 - Tdap) 12/25/1971 RSV Immunization Patients 60+ Years Old (1 - Risk 60-74 years 1-dose series) 2012 Colorectal Cancer Screening: Colonoscopy 05/21/2022 Depression Screening 05/21/2022 Falls Risk Assessment 05/21/2022 Hepatitis C Screening 05/21/2022 Medicare Annual Wellness Visit 05/21/2022 Social Influencers of Health Screening 05/21/2022 Pneumococcal Vaccine: 50+ Years (2 of 2 - PPSV23) 11/16/2022 11/16/2021 Zoster Vaccines (2 of 2) 12/25/2022 10/30/2022 COVID-19 Vaccine (5 - season) 2024 06/13/2022, 03/31/2021, 09/28/2020, Additional history exists Hypertension/CHF/CAD Annual BMP Blood Test 04/01/2025 04/01/2024 Cholesterol Screening (Lipid Panel) 04/01/2029 04/01/2024 Osteoporosis Screening (Bone Density Screening) 05/23/2032 05/23/2022, 03/10/2019 Influenza Vaccine Completed 04/25/2024, , 05/26/2022, Additional history exists HIB Vaccines Aged Out No longer eligi ble based on patient's age to complete this topic HPV Vaccines Aged Out No longer eligi ble based on patient's age to complete this topic Hepatitis A Vaccines Aged Out No long er eligible based on patient's age to complete this topic Hepatitis B Vaccines Aged Out No long er eligible based on patient's age to complete this topic IPV Vaccines Aged Out No longer eligi ble based on patient's age to complete this topic MMR Vaccines Aged Out No longer eligi ble based on patient's age to complete this topic Meningococcal ACWY Vaccine Aged Out N o longer eligible based on patient's age to complete this topic Meningococcal B Vacine Aged Out No lo nger eligible based on patient's age to complete this topic RSV Immunization Patients Under 20 months Aged Out No longer eligible based on patient's age to complete this topic Varicella Vaccines Aged Out No longer eligible based on patient's age to complete this topic Procedures Procedure Name Priority Date/Time Associated Diagnosis Comments INJECTION TENDON OR LIGAMENT Routine 07/17/2024 9:15 AM EST Capsulitis of left foot [employer] DEXA AXIAL SKELETON Routine 05/23/2022 4:52 PM EST Encounter for screening for osteoporosis from Last 3 Months or Most Recently Relevant to Health Maintenance Results * Injection tendon or ligament (07/17/2024 9:15 AM EST) Narrative Vinny Hammond DPM - 07/17/2024 9:15 AM EST Vinny Hammond DPM ? 07/17/2024 12:47 PM Injection tendon or ligament Indications: pain Details: 25 G needle Medications: 0.5 mL lidocaine (PF) 1 %; 40 mg triamcinolone acetonide 40 mg/mL Informed Consent: ??Laterality: ??Left us Vinny Hammond DPM IN CLINIC/BEDSIDE ORDERABLE S Final Result * [facility] DEXA AXIAL SKELETON (05/23/2022 4:52 PM EST) Anatomical Region Laterality Modality Mammography 05/23/2022 2:01 PM EST Narrative 05/23/2022 4:52 PM EST [facility] Diagnostic Imaging Department [address] [place] [id number] Patient: ??SODERSTROM,NERY A ?/Age/Sex: 1950 - 71 - F Unit#: ??[id number] ? Location/Status: ??SPDIMAM/REG CLI ? Mnemonic/Ordering Site: ??MAMDEXAAX/SPMAM Ordering Physician: ??JOSE YEPEZ MD [employer] Dexa Axial Skeleton - 05/23/22 - 4865 History: Low estrogen state due to menopause. Rheumatoid arthritis. Polymyalgia. Chronic glucocorticoid use. Comparison: 03/10/19 Findings: Bone densitometry is performed utilizing dual energy x-ray absorptiometry (DXA) in the [employer] unit. The lumbar spine and proximal femora are evaluated in the AP projection. The FRAX questionaire was completed. The results indicate osteoporosis, with a right femoral neck T-score of -2.6. The Z score is -1.4, indicating low bone mineral density for age. There has been no statistically significant change. ??The detailed DEXA report will be mailed to the referring physician's office. [employer] FRAX: 10-year Probability of Fracture: Major Osteoporotic 27.9 percent ??Hip 8.9 percent. IMPRESSION: Osteoporosis. [id number] Dictating Physician: ??DONNA BELTRAN MD Electronically Signed by: ??DONNA BELTRAN MD Dic Date/Time: ??05/23/221650 Sign date/Time: ??05/23/221651 Procedure Note Donna Beltran MD - 07/20/2023 [facility] Diagnostic Imaging Department [address] [place] [address] Patient: NERY BENITEZ Carol WilsonB./Age/Sex: 1950 - 71 - F Unit#: [id number] [facility] Ordering Physician: JOSE YEPEZ MD [employer] Dexa Axial Skeleton - 05/23/22 - 0652 History: Low estrogen state due to menopause. Rheumatoid arthritis.Polymyalgia. Chronic glucocorticoid use. Comparison: 03/10/19 Findings: Bone densitometry is performed utilizing dual energy x-ray absorptiometry(DXA) in the [employer] unit. The lumbar spine and proximal femora areevaluated in the AP projection. The FRAX questionaire was completed. The results indicate osteoporosis, with a right femoral neck T-score of-2.6. The Z score is -1.4, indicating low bone mineral density for age. Therehas been no statistically significant change. The detailed DEXA report will bemailed to the referring physician's office. [employer] FRAX: 10-year Probability of Fracture: Major Osteoporotic 27.9 percent Hip 8.9 percent. IMPRESSION: Osteoporosis. [id number] Dictating Physician: DONNA BELTRAN MD Electronically Signed by: DONNA BELTRAN MD Dic Date/Time: 05/23/221650 Sign date/Time: 05/23/221651 Jose Yepez MD IMG BI PROCEDURES Final Resu lt from Last 3 Months or Most Recently Relevant to Health Maintenance Insurance MEDICARE MEDICAID - [place] Care Teams Line Cleaner Relationship Specialty Start Date End Date Jose Yepez MD [address] [place] [id number] PCP - General Internal Medicine 09/18/17
--- OUTSIDE RECORDS SUMMARY | 2024-08-11 11:43 | XMS_ITS | Clinical Summary ---
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 12/14/2021 Active diclofenac sodium (VOLTAREN) 1 % Gel Apply topically. 12/29/2021 Active gabapentin (NEURONTIN) 100 MG capsule Take 100 mg by mouth nightly at bedtime. 10/07/2021 Active pramipexole (MIRAPEX) 0.125 MG tablet Take 0.125 mg by mouth nightly at bedtime. 2 tabs at bedtime 12/23/2021 Active esomeprazole (NEXIUM) 20 MG capsule Take 30 mg by mouth daily before breakfast. Active celecoxib (CELEBREX) 200 MG capsule Active furosemide (LASIX) 20 MG tablet Three times a week Active lidocaine (LIDODERM) 5 % 12/03/2023 Active famotidine (PEPCID) 20 MG tablet Take 20 mg by mouth nightly at bedtime. 11/21/2023 Active ascorbic acid, vitamin C, (VITAMIN C) 500 MG tablet Take 500 mg by mouth daily. Active ferrous sulfate 325 mg (65 mg [place] iron) tablet Take 325 mg by mouth daily with breakfast. Active zoledronic acid (RECLAST) 5 mg/100 mL PgBk Inject into the vein. Active therapeutic multivitamin tablet Take 1 tablet by mouth daily. Active traMADoL (ULTRAM) 50 mg tablet Take 50 mg by mouth nightly at bedtime. 04/05/2024 Active LORazepam (ATIVAN) 0.5 MG tablet Take 0.5 mg by mouth every 6 hours as needed. Active fexofenadine-pseudoephe drine (MATT-D) 60-120 mg per tablet Take 60 mg by mouth. 01/07/2024 Active acetaminophen (TYLENOL) 325 mg tablet Take 650 mg by mouth every 6 (six) hours as needed. Active cyanocobalamin, vitamin B-12, 1000 MCG tablet Take 1,000 mcg by mouth daily. Active cholecalciferol (VITAMIN D3) 25 MCG (1,000 unit) tablet Take 3,000 Units by mouth daily. Active Active Problems Problem Noted Date Diagnosed Date Morbid obesity with BMI of 40.0-44.9, adult 03/18 Assessment & Plan (05/13/2024 1:30 PM EST): This is a 73-year-old woman who underwent a laparoscopic sleeve gastrectomy with me many years ago. The patient had been lost to follow-up and now is back to start the medical weight loss component the program. Her insurance does not cover any of the weight loss medications. She was doing relatively well the first week after seeing me but then fell off the eating plan. She has lost 6 pounds and put some weight back on. She is down 2.8 pounds. I have encouraged the patient to stick to the eating plan and to increase the frequency and duration of her exercise. She needs increase her water intake to at least 64 ounces of water on a daily basis. She will continue current medications as reviewed. She will follow-up with me again in 6 weeks timeframe and follow-up with the dietitian in 3 weeks. She is not stable and is considered morbidly obese. Assessment & Plan (04/01/2024 2:15 PM EDT): This is a 73-year-old woman who underwent a laparoscopic sleeve gastrectomy many years ago with me at outside facility. The patient has been lost to follow-up for over 2 years. She has not been following the eating plan or exercise plan. She was seen by the nurse practitioner for medical weight loss but her insurance does not cover any of the weight loss medications. The patient is here seeing me now for help with getting back on track. I have prescribed for her an eating plan with 2 protein meal replacements and protein vegetable for dinner and one half cup of carbohydrate with dinner. The patient should avoid eating out and avoid skipping meals. She should drink at least 64 ounces of water on a daily basis. I have prescribed sit and be fit exercises and resistance band workouts from a chair for her exercise for 30 minutes 3 times a week. I will follow back up with her again in 6 weeks timeframe. I ordered her nutrition labs as she has not had any bariatric blood work in over 2 years. She will continue current medications as reviewed. She is not stable and is considered morbidly obese. Major depression, single episode 11/14/2023 Insomnia 11/14/2023 Osteoarthritis 11/14/2023 Fibromyalgia 11/14/2023 Restless legs syndrome 11/14/2023 Sleep apnea 08/18/2022 Multinodular goiter 08/16/2022 Osteoporosis 08/16/2022 Bariatric surgery status 01/03/2022 Assessment & Plan (01/03/2022 2:08 PM EDT): This is a 71-year-old lady who is status post laparoscopic sleeve gastrectomy and hiatal hernia repair in 2019. Patient has been lost to follow-up for greater than a year and has gained about 20 pounds or more. Patient has picked up grazing eating behaviors and is snacking on high carbohydrate foods. She is not drinking enough water and is doing no formalized exercise. I have asked the patient to add reminders to her phone as alarm so that she can eat at 9 AM 12 PM 3 PM and 6 PM daily. She should be consuming protein for each 1 of those meals to hold her over and increase satiety with her meals. She was told to avoid grazing eating behavior and to avoid eating out at fast food places such as [employer]. Patient should avoid eating after 8 PM. She will also increase water intake to at least 64 ounces of water and she may add water additives to enhance the flavor of the water. I have recommended the patient add 30 minutes of exercise by walking at least 3 times weekly. I have ordered a nutrition consult for the patient in the next 2 weeks to help with improving her food choices. He already had blood work performed in June 2021 and is not due for another set of blood work until June 2022. Patient should continue current medications as reviewed. She is not taking her bariatric vitamin or calcium and was asked to add both of these back to her medication regimen. She is not stable is considered obese. I will follow-up with her again in the office in 6 weeks timeframe. Intestinal malabsorption following gastrectomy 0 01/03/2022 Class 2 severe obesity due t o excess calories with serious comorbidity and body mass index (BMI) of 35.0 to 35.9 in adult 01/03/2022 Overview (11/14/2023): WHO CLASS 3, AACE stage 1 S/p sleeve gastrectomy 2019 Assessment & Plan (11/14/2023 12:45 PM EDT): Pt was educated on the pathophysiology of obesity, which is a chronic, relapsing, often progressive neuroendocrine disease with behavioral components. We discussed treatment approaches including lifestyle changes, pharmacotherapy & bariatric surgery. We discussed their personal treatment goals. We discussed targeting a weight loss goal of 5-10% over the next 6 months as this modest amount of weight loss has been shown to decrease blood pressure, insulin resistance, sleep apnea, liver inflammation, arthritic pain and improve dyslipidemia. I recommend the following labs as part of their initial evaluation, the results of which will direct further treatment recommendations: Fasting lipid, CMP, A1c, TSH w reflex, Vit D, B12, CBC, fasting insulin Patient was given the initial meal plan and exercise recommendations. I recommend patient work with our dietitian, Gudelia Calixto RD and have asked them to schedule an appt. Pt doesn't want medication management. If her opinion on this changes she will FU w me. We did discuss that medicare doesn't cover GLP1RA. Otherwise she should FU with Dr. Sinha and Gudelia. Encounters Date Type Department Care Team Description 05/13/2024 1:00 PM EST Office Visit [facility] [address] [place] [address] Serena Sinha MD Morbid obesity with BMI of 40.0-44.9, adult (Primary Dx); Bariatric surgery status; S/P laparoscopic sleeve gastrectomy from Last 3 Months Social History Tobacco Use Types Packs/Day Years Used Date Smoking Tobacco: Never Smokeless Tobacco: Never Tobacco Cessation:Counseling Given: Not Answered Education Answer Date Recorded Are you interested in more education? Not on hung e 10/14/2022 Are you concerned about learning? Not on file 10/14/2022 No 10/14/2022 No 10/14/2022 Digital Access Answer Date Recorded No 11/12/2022 No 11/12/2022 Reliable internet access at home? Not on file 11/12/2022 Device with a working camera? Not on file Sex and Gender Information Value Date Recorded Sex Assigned at Not on file Gender Identity Not on file Sexual Orientation Not on file Last Filed Vital Signs Vital Sign Reading Time Taken Comments Blood Pressure 112/68 05/13/2024 1:00 PM EST Pulse 73 05/13/2024 1:00 PM EST Temperature 36.4 ??C (97.5 ??F) 05/13/2024 1:00 PM ES T Respiratory Rate - - Oxygen Saturation 99% 05/13/2024 1:00 PM EST Inhaled Oxygen Concentration - - Weight 91.7 kg (202 lb 3.2 oz) 05/13/2024 1:00 P M EST Height 148.6 cm (4' 10.5 ) 05/13/2024 1:00 PM ES T Body Mass Index 41.53 05/13/2024 1:00 PM EST Plan of Treatment Health Maintenance Due Date Last Done Comments Adult Td,Tdap Booster 1950 DEPRESSION SCREENING 1964 HEPATITIS B SCREENING 1970 HEPATITIS C SCREENING 1970 MAMMOGRAM 1992 COLOGUARD 1997 COLONOSCOPY 1997 COLORECTAL CANCER SCREENING 1997 FIT TEST 1997 FOBT 1997 SIGMOIDOSCOPY 1997 VIRTUAL COLONOSCOPY 1997 PNEUMOCOCCAL VACCINES (50+ y ears) (1 of 1 - PCV) 2002 ZOSTER VACCINES (1 of 2) 2002 RSV VACCINE (1 - Risk 60-74 years 1-dose series) 2012 OSTEOPOROSIS SCREENING INITI AL (ONE-TIME) 2017 INFLUENZA VACCINE (#1) 2024 COVID-19 VACCINE (1 - 2023-2 5 season) 2024 LIPID PANEL 04/01/2029 04/01/2024 SMOKING STATUS SCREENING (On ce After 26 Yrs) Completed 05/13/2024 HEPATITIS A VACCINES Aged Out No long er eligible based on patient's age to complete this topic HEPATITIS B VACCINES Aged Out No long er eligible based on patient's age to complete this topic HIB VACCINES Aged Out No longer eligi ble based on patient's age to complete this topic MENINGOCOCCAL VACCINES (ACWY) Aged Out No longer eligible based on patient's age to complete this topic Medical Devices Not on file Procedures Procedure Name Priority Date/Time Associated Diagnosis Comments LIPID PANEL Routine 04/01/2024 2:35 PM EDT Intestinal malabsorption following gastrectomy from Last 3 Months or Most Recently Relevant to Health Maintenance Results * (ABNORMAL) Lipid panel (04/01/2024 2:35 PM EDT) HDL 65 mg/dL [facility] Comment: ? Interpretation <40 mg/dL: Low HDL cholesterol (major risk factor for CHD) Greater than or equal to 60 mg/dL: High HDL cholesterol ( negative risk factor for CHD) HDL - cholesterol is affected by a number of factors, e.g. smoking, excerise, hormones, sex and age. CHOLESTEROL 190 0 - 240 mg/dL [facility] TRIGLYCERIDES 292(H) 30 - 160 mg/dL [facility] LDL 67 50 - 129 mg/dL [facility] Comment: LDL levels in terms of risk for coronary heart disease: <100 mg/dL: Optimal 100-129 mg/dL: Near or above optimal 130-159 mg/dL: Borderline high 160-189 mg/dL: High >190 mg/dL: Very High CARDIAC RISK RATIO 2.9(L) 3.3 - 4.4 [facility] Blood 04/01/2024 2:35 PM EDT 04/01/2024 2:45 PM EDT Serena Sinha MD LAB BLOOD ORDERABL ES [facility] [address] [place] [address] from Last 3 Months or Most Recently Relevant to Health Maintenance Soderstrom, Nery Personal/Famil y Self [address] [place] [id number] Soderstrom, Nery Personal/Famil y Self [address] [place] [address] Soderstrom, Nery Personal/Famil y Self [address] [place] [address] Nery Martinez Personal/Famil y Self [address] [place] [address] Care Teams Strainer Cleaner Relationship Specialty Start Date End Date Jose Quintero MD [address] [place] [address] PCP - General Internal Medicine 01/03/22 Additional Source Comments The information contained in this document represents components of the legal health record. It is not the complete legal health record.[facility]
== END 2024-08-11 11:02 | disposition home or self-care (01) ==
LOC: HO.HWS 10:25
PROVIDERS: PCP Internal Medicine; Visit Provider Obstetrics & Gynecology
DX: N89.8 Other specified noninflammatory disorders of vagina (principal); R32 Unspecified urinary incontinence
CPT/HCPCS: 99213

== ENCOUNTER → 2024-08-11 10:25 | Outpatient (BNVA) | payer MEDICARE, MEDICAID, SELFPAY | PROVIDERS: PCP Internal Medicine; Visit Provider Obstetrics & Gynecology | DX: N89.8 Other specified noninflammatory disorders of vagina (principal); R32 Unspecified urinary incontinence | CPT/HCPCS: 99212 ==

== ENCOUNTER 2024-10-02 13:08 | Outpatient (AMB) | payer MEDICARE, MEDICAID, SELFPAY ==
--- NOTE | 2024-10-02 13:15 | MHC.OFFVIS ---
Intake Visit Reasons: urinary incontinence Intake Note: New Patient presents for initial visit for urinary incontinence Urology Medications: none Blood Thinner: none PVR: 0ml's Bariatric Surgeon Required: No Accompanied by: Self / Same As Patient Allergies meperidine [From DEMEROL] Allergy (Unknown, Verified 10/02/24 23:15) NAUSEA/VOMITING metaxalone [From SKELAXIN] Allergy (Unknown, Verified 10/02/24 23:15) HIVES Sulfa (Sulfonamide Antibiotics) [SULFA (SULFONAMIDE ANTIBIOTICS)] Allergy (Unknown, Verified 10/02/24 23:15) NAUSEA/VOMITING PLASTIC TAPE Allergy (Unknown, Uncoded 10/02/24 23:15) REDNESS Medication List - Last Reconciled 10/02/24 by EVERETTE Akers- celecoxib 200 mg PO DAILY colchicine mg PO escitalopram oxalate 30 mg PO DAILY famotidine 20 mg PO DAILY furosemide mg PO gabapentin mg PO .prn pramipexole 0.25 mg PO BEDTIME ropinirole 0.25 mg PO BEDTIME vitamin A palmitate 10,000 units PO DAILY HPI Comments Details: Nery is a very pleasant 73-year-old female patient of Dr. Quintero. She has a past medical history of rheumatoid arthritis, obesity, hypothyroidism, polymyalgia, restless leg syndrome, pernicious anemia, plantar fasciitis, depression, anxiety, sleep apnea, GERD, and traumatic diastasis of of symphysis pubis. She presents to the office today as a new patient for mixed urinary incontinence. In discussion with the patient today she reports episodes of urinary incontinence started 1-2 years ago. She reports utilizing one peripad per day. When asked she does report to pass vaginal deliveries one involving a prolonged labor and pelvic infection. In office urinalysis results were reviewed with the patient today. PVR 0 mL. She otherwise denies nocturia, hematuria, dysuria, foul smelling urine, changes to urinary stream, flank pain, fever, and or chills. She does report episodes of urinary urgency and frequency shortly after drinking her coffee and or tea. We discussed bladder triggers/irritants. We also discussed further treatment options of mixed urinary incontinence and risks and benefits of these treatment options. We discussed obtaining retroperitoneal ultrasound for further assessment evaluation. She otherwise offers no other issues or concerns at this time. Discussion Notes During the visit, I discussed with the patient that her symptoms align with mixed urinary incontinence, involving both stress incontinence. Her urine analysis showed no signs of infection or other anomalies. Considering these results, I suggested an ultrasound of the kidneys and bladder to further evaluate any underlying structural issues. We discussed pelvic floor therapy as an initial management strategy, highlighting its benefits and the potential percentage of symptom improvement based on past patient experiences. The possibility of pharmacotherapy was introduced, and potential use of urodynamic testing as an advanced diagnostic measure was mentioned if other treatment avenues prove ineffective. The patient expressed interest in pelvic floor therapy, recognizing its potential benefits.. Plan The primary treatment approach will involve a pelvic floor therapy referral, capitalizing on her willingness and the potential benefits observed in other patients. An ultrasound of the kidneys and bladder will be performed to rule out any underlying structural issues. Meanwhile, dietary modifications will be advised to manage symptoms, notably reducing bladder triggers/irritants. If the initial conservative approach is inadequate, consideration of pharmacotherapy or advanced procedures. She will be referred to a specialized trained pelvic floor therapist to address her mixed incontinence issues. REPLACED BY [facility] Medical History Rheumatoid arthritis Obesity (BMI 30-39.9) Hypothyroidism Polymyalgia Restless legs syndrome Pernicious anemia Neuralgia Plantar fasciitis Depression Anxiety Sleep apnea with use of continuous positive airway pressure (CPAP) GERD (gastroesophageal reflux disease) Erosive (osteo)arthritis Chronic ear infection Chronic sinus infection Herpes Traumatic diastasis of symphysis pubis Surgical History History of repair of hiatal hernia History of sleeve gastrectomy Hx of colonoscopy S/P cataract surgery S/P trigger finger release S/P D&C (status post dilation and curettage) S/P Achilles tendon repair Hx laparoscopic cholecystectomy Hx of tubal ligation Family History Father Heart disease Mother Heart disease Hx of CABG Lung cancer Brother No problems noted. Brother No problems noted. Brother No problems noted. Brother No problems noted. Brother No problems noted. Brother No problems noted. Sister No problems noted. Sister No problems noted. Sister No problems noted. Son No problems noted. Daughter No problems noted. Social History Alcohol intake: never Patient Tobacco Use Status: Never used Tobacco Review of Systems Eyes Reports no additional complaints ENT Reports as per [facility] Card Reports as per [facility] Resp Reports as per [facility] GI Reports as per [facility] Reports as per [facility] Musc Reports as per [facility] Neuro Reports as per [facility] Psych Reports as per [facility] Endo Reports as per HPI Physical Exam Const General: cooperative, comfortable, no acute distress, well developed, alert and awake Nutritional Appearance: overweight Orientation/consciousness: patient oriented x3 Limitations: no limitations HEENT Head: Yes normal to inspection, Yes normocephalic and Yes atraumatic Ears: hearing grossly normal bilaterally Eyes General: appearance normal, both eyes and all related structures Neck Neck: Yes normal visual inspection and Yes trachea midline Chest Chest palpation & inspection: normal inspection of the chest Resp Effort & Inspection: normal respiratory effort and able to speak in complete sentences Cardio Rate: regular rate GI Inspection: Yes normal to inspection General: Yes no CVA tenderness Back/Spine/Pelvis Back: no CVA tenderness Skin General skin exam: no rashes or lesions noted Neuro General: patient oriented x3 Extrem General: Yes normal to inspection Psych Appearance: grossly normal and well kempt Mental Status: mental status grossly normal Speech and movement: Normal speech and movement present and Clear speech present Affect: normal affect Attitude: cooperative Thought process: Normal thought process present Thought content: Normal thought content present Insight: Fair insight present (Psych) Judgement: Fair judgement present (Psych) Office Procedures Post Void Residual Post Residual Void Post Void Residual (PVR): 0 [id number] Void Residual by ultrasound Results AMB Urinalysis, Automated UA Leukoctes 0 Sherif/uL Last Edit by Dolores Sosa on 10/02/24 15:32 UA Nitrite Last Edit by Dolores Sosa on 10/02/24 15:32 UA Urobilinogen 0.2 mg/dL Last Edit by AccuTherm Systemselier Sosa on 10/02/24 15:32 UA Protein 0 mg/dL Last Edit by Dolores Sosa on 10/02/24 15:32 UA pH 7.0 Last Edit by Dolores Sosa on 10/02/24 15:32 UA Blood 0 Marco/uL Last Edit by Dolores Sosa on 10/02/24 15:32 UA Specific [place] 1.010 Last Edit by EfrenHomeAwayelier Sosa on 10/02/24 15:32 UA Ketone Last Edit by Dolores Sosa on 10/02/24 15:32 UA Bilirubin 0 mg/dL Last Edit by Dolores Sosa on 10/02/24 15:32 UA Glucose 0 mg/dL Last Edit by Dolores Sosa on 10/02/24 15:32 Results Reviewed Results Reviewed: Laboratory Last Values Urine pH (Auto) 7.0 10/02/24 15:31 Specific [place] (Auto) 1.010 10/02/24 15:31 Urine Protein (Auto) 0 mg/dL 10/02/24 15:31 Glucose (UA)(Auto) 0 mg/dL 10/02/24 15:31 Urine Blood (Auto) 0 Marco/uL 10/02/24 15:31 Urine Bilirubin (Auto) 0 mg/dL 10/02/24 15:31 Urine Urobilinogen (Auto) 0.2 mg/dL 10/02/24 15:31 Leukocyte Esterase (Auto) 0 Sherif/uL 10/02/24 15:31 Assessment & Plan Assessment & Plan (1) Urine incontinence: Code(s): R32 - Unspecified urinary incontinence Category: Medical Plan In office urinalysis results with the patient today; as noted above. PVR 0 mL. We discussed at length potential causes of urinary incontinence and further treatment options and risks and benefits of these treatment. Will Refer to pelvic floor therapy as discussed. Will obtain retroperitoneal ultrasound for further assessment evaluation. We discussed bladder triggers/irritants. Follow-up in 3-4 months with imaging and PVR; or sooner with any issues, concerns, and or questions. Orders: Orders PT Evaluation and Treatment Today R32 - Unspecified urinary incontinence US retroperitoneal comp Today R32 - Unspecified urinary incontinence AMB Urinalysis Automated Today Z13.9 - Encounter for screening, unspecified AMB Post Void Residual by ultrasound Today R32 - Unspecified urinary incontinence Patient Instructions: The patient had an opportunity to ask questions regarding the treatment plan. All questions were answered. Physical exam, labs, and imaging were discussed and reviewed in detail. As well as risks, benefits, and discussion of treatment choices. No major barriers to understanding were identified. The patient expressed understanding and agreement with the above treatment plan. The patient was made aware they should contact our office by phone for worsening of their current condition, the appearance of new symptoms, or with any questions or concerns. Compliance is encouraged with any medications and follow up testing that is ordered. It is a privilege to be allowed the opportunity to participate in? your urological care.? Again, if you have any questions or concerns If you have any questions or concerns please do not hesitate to contact me. The office is [phone]. This note is constructed using voice recognition software. While every effort has been made to ensure accuracy information management specialist errors may have been included. Yours sincerely, KINGA Akers Coding Level of Care Code New Pt Level 3 (69607) Diagnoses Urine incontinence R32 CPT Codes Post Residual Void - PVR CPT Code: 47688-Rmeo Void Residual by ultrasound ([id number])
--- OUTSIDE RECORDS SUMMARY | 2024-10-02 16:06 | XMS_ITS | Continuity of Care Document ---
Author Organization [facility] [address] [place] [address] Phone [phone] Care Team Providers Care Cushion Assembler Name Role Phone Jose Quintero M.D. 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 08/11/2024 Multivitamin Adults 50+Adlt 50+ Tablets 1 by mouth every day Kristy Szymanski M.D. 02/24/2024 Calcium 600 + [id number] Tablets 1 by mouth every day Kristy Szymanski M.D. 02/24/2024 Escitalopram Oytsukl48sj Tablets Take 1 & 1/2 Tablets By Mouth Daily Jose Quintero M.D. Pramipexole Dihydrochloride0.125m g Tablets Take 2 Tablets By Mouth AT Bedtime Unknown [id number] Capsules Take One Capsule By Mouth Twice A Day leonardn Naveen Watkins, Upaayorgdz24di Tablets Take 1 Tablet By Mouth Twice Weekly Jose Quintero M.D. Diclofenac Sodium1% Gel Apply 4 Times A Day as Needed For Pain Unknown Llkwmkb7ms/100ML Solution 06/2019, 10/2020, 08/2022 Kristy Szymanski M.D. Eniugf13bw Capsules DR 1 every day as needed Unknown Steph Rrthpkn484nl Tablets 1 by mouth every day Unknown Vital Signs Date Vital Result Comment 08/11/2024 1:15pm BP Systolic 124 mmHg BP Diastolic 66 mmHg Heart Rate 78 /min Height 58.5 inches 4'10.50 Weight 205.50 lb BMI (Body Mass Index) 42.2 kg/m2 Results Test Acquired Date Facility Test Result H/L Range N ote TSH Rfx on Abnormal to Free T4 08/11/2024 [facility] TSH Rfx on Abnormal to Free T4 0.716 uIU/mL 0.450-4.5 00 Vitamin D, 25-Hydroxy 08/11/2024 [facility] Vitamin D, 25-Hydroxy 32.2 ng/mL 30.0-100. 0 1 Basic Metabolic Panel (8) 02/12/2024 [facility] Glucose 96 mg/dL 70-99 BUN 15 mg/dL 8-27 Creatinine 0.60 mg/dL 0.57-1.00 eGFR 96 mL/min/1.7 3 >59 BUN/Creatinine Ratio 25 12-28 Sodium 141 mmol/L 134-144 Potassium 4.5 mmol/L 3.5-5.2 Chloride 106 mmol/L 96-106 Carbon Dioxide, Total 23 mmol/L 20-29 Calcium 9.2 mg/dL 8.7-10.3 TSH Rfx on Abnormal to Free T4 02/12/2024 [facility] TSH Rfx on Abnormal to Free T4 1.070 uIU/mL 0.450-4.5 00 Vitamin D, 25-Hydroxy, Total 02/12/2024 [facility] Vitamin D, 25-Hydroxy, Total 25 ng/mL Low 2 TSH RFX On Abnormal To Free T4 02/11/2024 [facility] TSH RFX On Abnormal To Free T4 <pending> Vitamin D 25 Hydroxy Esoterix 02/11/2024 [facility] Vitamin D 25 Hydroxy Esoterix <pending> Basic Metabolic Panel 08/18/2022 [facility] Glucose 94 mg/dL (70-99) BUN 19 mg/dL (8-23) Creatinine 0.5 mg/dL (0.5-1.0) Sodium 141 mmol/L (133-145) Potassium 4.1 mmol/L (3.6-5.2) Chloride 104 mmol/L (98-107) Bicarbonate 30 mmol/L High (22-29) Anion Gap 7 (4-17) Calcium 9.8 mg/dL (8.6-10.5 ) Estimated GFR Creatinine 100 ML/MIN/1.7 3M2 3 25Oh Vitamin D 08/18/2022 [facility] 25Oh Vitamin D 23.4 NG/ML (20-50) TSH With Reflex To FT4 08/18/2022 [facility] TSH With Reflex To FT4 1.17 uIU/mL (0.4-4.2) Albumin 08/18/2022 [facility] Albumin 4.2 GM/DL (3.4-4.8) 1 Vitamin D deficiency has been defined by the [place] of [employer] and an Endocrine Society practice guideline as a level of serum 25-OH vitamin D less than 20 ng/mL (1,2). The Endocrine Society went on to further define vitamin D insufficiency as a level between 21 and 29 ng/mL (2). 1. IOM ([place] of Medicine). 2010. Dietary reference intakes for calcium and D. [place]: The National Academies Press. 2. Natasha MF, Radha GREENFIELD, Marlee SOMERS, et al. Evaluation, treatment, and prevention of vitamin D deficiency: an Endocrine Society clinical practice guideline. JCEM. 2010; 96(7):1911-30. 2 Reference Range: All Ages: Target levels 30 - 100 3 Creatinine based est imated glomerular filtration (eGFR) in adults is calculated using the National Kidney Foundation recommended 2020 CKD-EPI equation. Estimates GFR from serum creatinine, age and sex. Procedures Date Code Description Status 08/11/2024 42774 Collection Of Venous Blood B y Venipuncture Completed 02/21/2023 NSHOWOFF No Show Office Visit Complet ed 08/18/2022 24325 Collection Of Venous Blood B y Venipuncture Completed Medical Devices Description No Information Available Encounters Type Date Location Provider Dx Diagnosis Office Visit 08/11/2024 1:15p Main Office Kristy Szymanski M.D. E04.2 Nontoxic multinodular goiter M81.0 Age-related osteopor osis w/o current pathological fracture E05.90 Thyrotoxicosis, unsp without thyrotoxic crisis or storm Assessments Date Code Description Provider 08/11/2024 E04.2 Nontoxic multinodular goiter Kristy Szymanski M.D. 08/11/2024 M81.0 Age-related oste oporosis without current pathological fracture Kristy Szymanski M.D. 08/11/2024 E05.90 Thyrotoxicosis, unspecified without thyrotoxic crisis or storm Kristy Szymanski M.D. Plan of Treatment Future Appointment(s):* 02/09/2025 1:15 pm - Kristy Szymanski M.D. at Main Office 08/18/2022 - Kristy Szymanski M.D.* E04.2 Nontoxic multinodular goiter * M81.0 Age-related osteoporosis without current pathological fracture * E05.90 Thyrotoxicosis, unspecified without thyrotoxic crisis or storm* New Xrays:* Ultrasound Head And Neck Soft Tissues, Scheduled: 09/12/22 Functional Status Description No Information Available Mental Status Description No Information Available Referrals Description No Information Available
--- OUTSIDE RECORDS SUMMARY | 2024-10-02 16:06 | XMS_ITS | Data Portability ---
Author Organization [place] [facility], Allergy Address [address] [address] Care Team Providers Care Purchasing Department Clerk Name Role Phone CAROLA YEPEZ Primary Care Provider Assessment Encounter Date Assessment Date Assessment LastModified [...] Orders famotidine 20 mg tablet 2023 024 [employer] [id number] [place], [address], 4 13:40:03 famotidine 20 mg tablet 2023 [id number] [place], [address], 4 11:43:18 Patient TargetsNo targets recorded. Patient InstructionsNo instructions recorded. Reason for Referral None Reported. Problems Name Problem SNOMED Code Status Onset Date Resolution Date Notes Provider Name and Address Organization Details Recorded Time Otorrhea of right ear 40077313485 62601 Active 2016 Otorrhea, right ear; Note: Date Diagnosed : 04/19/2017 2:28 PM (H92.11) Not Available [facility] 4 02:56:19 Acute sialoaden itis 392474400 Active 2016 Acute sialoaden itis; Note: Date Diagnosed : 11/14/2016 4:37 PM (K11.21) Not Available [facility] 4 02:56:21 Acute serous otitis media of left ear 47073083578 81084 Active 2016 Acute serous otitis media, left ear; Note: Date Diagnosed : 11/14/2016 4:37 PM (H65.02) Not Available [facility] 4 02:56:20 Difficult y speaking Active 2014 Hoarsenes s; Note: Date Diagnosed : 01/21/2015 11:40 AM (784.49) Not Available [facility] 4 02:56:21 Diffuse otitis externa 60073353 Active 2016 Diffuse otitis externa, right ear; Note: Date Diagnosed : 04/19/2017 2:31 PM (H60.311) Diffuse otitis externa, left ear; Note: Date Diagnosed : 11/14/2016 4:44 PM (H60.312) ; Start Date : 7 Not Available [facility] 4 02:56:21 Sensorine ural hearing loss of bilateral ears 407544326 Active 2017 Sensorine ural hearing loss, bilateral ; Note: Date Diagnosed : 12/17/2017 3:37 PM (H90.3) Not Available [facility] 4 02:56:23 Benign paroxysma l positiona l vertigo 671217647 Active 2016 Benign paroxysma l vertigo, right ear; Note: Date Diagnosed : 07/26/2016 3:00 PM (H81.11) Not Available [facility] 4 02:56:22 Cough 01568650 Active 2018 Cough; Note: Date Diagnosed : 06/25/2018 3:22 PM (R05) Not Available [facility] 4 02:56:22 Obstructi ve sleep apnea syndrome 12740122 Active 2016 Obstructi ve sleep apnea (adult) (pediatri c); Note: Date Diagnosed : 03/07/2017 10:47 AM (G47.33) Not Available [facility] 4 02:56:22 Candidal otitis externa 58574102 Active 2016 Candidal otitis externa; Note: Date Diagnosed : 07/26/2016 3:02 PM (B37.84) Not Available [facility] 4 02:56:22 Atypical facial pain 40725663 Active 2016 Atypical facial pain; Note: Date Diagnosed : 03/07/2017 10:47 AM (G50.1) Not Available [facility] 4 02:56:20 Refractor y migraine 690741418 Active 2016 Other migraine, intractab le, without status migrainos us; Note: Date Diagnosed : 03/07/2017 10:46 AM (G43.819) Not Available [facility] 4 02:56:23 Dizziness and giddiness 522045892 Active 2016 Dizziness and giddiness ; Note: Date Diagnosed : 03/07/2017 10:46 AM (R42) Not Available [facility] 4 02:56:20 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; Note: Date Diagnosed : 02/19/2015 4:48 PM (478.5) Not Available [facility] 4 02:56:20 Allergic rhinitis 14882325 Active 2016 Other allergic rhinitis; Note: Date Diagnosed : 03/07/2017 10:49 AM (J30.89) Note: Date Diagnosed : 03/07/2017 10:49 AM (J30.89) Not Available [facility] 4 01:15:03 Gastroeso phageal reflux disease without esophagit is 142660607 Active 2023 Ade martinez [place] - [facility] 11:42:41 Chronic hoarsenes s 96790926996 Active 2023 Ade martinez [place] [facility] 12:03:51 Problem Notes None recorded. Procedures Surgical History Date Name Laterality Status Provider Name and Address Organization Details Recorded Time 11/21/19 24 Fiberoptic Laryngoscopy (Comprehensive) completed Ade Cage [place] - [facility] 11/21/2023 12:03:39 02/17/20 02 procedure on gallbladder completed aMnisha Nam [place] - [facility] 11/21/2023 11:37:34 11/17/19 00 laparoscopic sleeve gastrectomy completed Manisha Nam [place] [facility] 11/21/2023 11:37:59 Imaging Results None recorded. Procedure Notes None recorded. Medical Equipment None Reported. Allergies Allergen ID Allergen Name Allergen Category Reaction Reaction Severity Criticality Documentation Date Start Date Code Code System Note Provider Name and Address Organization Details Recorded Time 681760 meperidin e hydrochlo ride medicatio n other Not available Not available 10/30/2023 40805 5 RxNorm React ion: unkno wn, unspe cifie d;; Not Available [facility] 01:25:00 546652 Demerol medicatio n Not available Not available Not available 11/21/2023 29029 1 RxNorm Manisha martinez [place] [facility] 11:31:28 628277 morphine medicatio n Not available Not available Not available 11/21/2023 7052 RxNorm Manisha martinez [place] [facility] 11:31:41 Medications Name Sig Start Date Stop Date Status Note LastModified by Organization Details LastModified Time celecoxib 200 mg capsule TAKE ONE CAPSULE BY MOUTH EVERY DAY NEEDED FOR PAIN active Not Available Not Available No t Available neomycin- polymyxin -hydrocor t 3.5 mg/mL-10, 000 unit/mL-1 % ear solution 2016 active Medicati on ID: [id number] D uration Value: 10 Brand Name: neomycin -polymyx in-HC Se nd Method: E-Prescr ibed Sub s Allowed: subs ADIN Mosley al Instruct ion: INSTILL 4 DROPS FOUR TIMES [...] mg tablet 11/20 completed Medicati on ID: [id number] D uration Value: 30 Brand Name: trazodon e Send Method: E-Prescr ibed Sub s Allowed: subs ADIN ventura Instruct ion: TAKE 1-2 TABLETS BY MOUTH AT BEDTIME Medicati onGeneri cName: trazodon e Medica tion ID: [id number] D uration Value: 30 Brand Name: trazodon [...] topical cream 11/20 completed Medicati on ID: [id number] Rc bess By Name: RENAY Nance nd Name: Lotrison e Send Method: E-Prescr ibed Sub s Allowed: subs OK Speci al Instruct ion: apply to external ear tid X 2 weeks Me dication GenericN paul: Lotrison e Medica tion ID: [id number] P iram bess By Name: RENAY Nance nd Name: Lotrison [...] elayed release 2016 active Medicati on ID: [id number] B rand Name: Prevacid Send Method: E-Prescr ibed Sub s Allowed: subs OK Medic ationGen ericName : Prevacid Not Available Not Available Not Available Macrobid 100 mg capsule 2016 active Medicati on ID: [id number] B rand Name: Macrobid Send Method: E-Prescr ibed Sub s Allowed: subs OK Medic ationGen ericName : Macrobid Not Available Not Available Not Available ofloxacin 0.3 % ear drops 11/14 completed Medicati on ID: [id number] Du ration Value: 10 Reason: () Brand Name: ofloxaci n Send Method: E-Prescr ibed Sub s Allowed: subs OK Medic ationGen ericName : ofloxaci n Not Available Not Available Not Available famotidin e 20 mg tablet TAKE ONE TABLET BY MOUTH EVERY DAY AT BEDTIME active Not Available Not Available No t Available ropinirol e 0.25 mg tablet 2016 active Medicati on ID: [id number] D uration Value: 30 Brand Name: ropiniro le Send Method: E-Prescr ibed Sub s Allowed: subs OK Speci al Instruct ion: TAKE TWO TABLETS BY MOUTH ONCE DAILY AT BEDTIME Medicati onGeneri cName: waliiniro le Not Available Not Available Not Available doxycycli ne monohydra te 100 mg capsule 05/22 completed Medicati on ID: [id number] Du ration Value: 10 Brand Name: doxycycl ine monohydr ate Send Method: E-Prescr ibed Sub s Allowed: subs OK [facility] : doxycycl ine monohydr ate Not [...] topical solution 05/22 completed Medicati on ID: [id number] Rc bess By Name: RENAY Nance nd Name: clotripushpa ruba bess Method: E-Prescr ibed Sub s Allowed: subs OK Speci al Instruct ion: 4 drops to affected ear three times a day X 14 days Med ication enericNa me: clotrima zole Not Available Not Available Not Available pramipexo le 0.125 mg tablet TAKE TWO TABLETS BY MOUTH EVERY EVENING AT BEDTIME active Not Available Not Available No t Available furosemid e 20 mg tablet 11/20 completed Medicati on ID: [id number] D uration Value: 30 Brand Name: furosemozzie de Send Method: E-Prescr ibed Sub s Allowed: subs OK Speci al Instruct ion: TAKE 1 TO 2 TABLETS ONCE DAILY BY MOUTH Me dication GenericN paul: furosemi de Medic ation ID: [id number] D uration Value: 30 Brand Name: furosemi [...] 4 drop 11/20 completed Medicati on ID: [id number] D uration Value: 14 Prescri bed By Name: RENAY Cardenas nd Name: TobraDex Send Method: E-Prescr ibed Sub s Allowed: subs OK Speci al Instruct ion: apply to right ear as prescrib ed Medic [facility] ericName : TobraDex Medicat ion ID: [id number] D uration Value: 14 Prescri bed By Name: RENAY Cardenas nd Name: TobraDex Send Method: E-Prescr ibed Sub s Allowed: subs ADIN ventura Instruct ion: apply to right ear as prescrib ed Medic [facility] ericName : TobraDex Not Available Not [...] 4 drop 11/20 completed Medicati on ID: [id number] D uration Value: 14 Prescri bed By Name: Ade Cage RENAY Smith gina Name: Ciprodex Send Method: E-Prescr ibed Sub s Allowed: subs OK Medic ationGen ericName : Ciprodex Medicat ion ID: [id number] D uration Value: 14 Prescri bed By Name: Ade Cage RENAY Smith gina Name: Ciprodex Send Method: E-Prescr ibed Sub [...] Updated DateTime 01/16/2024 148.59 cm 40.5 kg/m2 01872.7 g Carola Kebede [place] [facility] 01/16/2024 13:20:29 Date Recorded Body height Body mass index (BMI) Body weight Provider Name and Address Organization Details Last Updated DateTime 11/21/2023 148.59 cm 40.5 kg/m2 04808.7 g Manisha Fernando [facility] 11/21/2023 11:31:13 Social History None recorded. Functional [...] martinez [place] - [facility] 11/21/2023 11:38:19 Pneumococcal conjugate PCV 13 2 completed Manisha martinez [place] - [facility] 11/21/2023 11:38:36 Past Encounters Encounter ID Performer Location Encounter Start Date Encounter Closed Date Diagnosis/Indication Diagnosis SNOMED-CT Code Diagnosis ICD10 Code Diagnosis Note [id number] Ade Cage [facility] on [address] [place] [address], [place] [address] 11/21/2023 10:56:00 11/23/2023 13:14:35 Gastroesophageal reflux disease without esophagitis 300227053 K21.9 Chronic hoarseness 50005 75851 105 R49.0 Allergic rhinitis 885205 04 J30.9 [id number] Ade Cage [facility] on [address] [place] [address] 01/16/2024 13:15:07 01/16/2024 13:41:34 Chronic hoarseness 9565960083 105 R49.0 Gastroesop hageal reflux disease without esophagitis 408452295 K21.9 Health Concerns Section Related Observation LastModified by Organization Detai ls LastModified Time None Recorded Concern Status LastModified by Organization Details LastModified Time None Recorded Advance Directives Directive None Recorded Payers Encounter Date Sequence Insurance Name Policy Number Policy Pedroza Covered Member ID Pedroza Member ID Guarantor Name 11/21/2023 1 [place] [facility] Nery A Soderstrom [id number] Nery Soderstrom 11/21/2023 2 [place] [facility] Nery Soderstrom [id number] Nery Soderstrom 01/16/2024 1 [place] [facility] Nery A Soderstrom [id number] Nery Soderstrom 01/16/2024 2 [place] [facility] Nery Soderstrom [id number] Nery Soderstrom Notes Date Note Type Note [...] drink coffee, but stops at about 1pm. Ade martinez [place] - [facility] 11/21/2023 12:07:04 01/16/2024 text/html 72 year old [...] has been struggling to drink more water. Ade martinez [place] - [facility] 01/16/2024 13:40:15 OBGyn Episode No OBEpisode recorded.
--- OUTSIDE RECORDS SUMMARY | 2024-10-02 16:06 | XMS_ITS | Patient Health Record ---
Author Organization [facility] Address [address] [place] [address] Care Team Providers Care Delivery Assistant Name Role Phone Jose Quintero MD Primary Care Provider Unavail able Calli Martínez Unavailable [phone] Allergies Allergen (clinical drug ingredient) Drug/Non Drug Allergy documented on EMR Reaction Allergy Type Onset Date Status metaxalone skelazin (uncoded) hives, itching Allergy Active meperidine Demerol vomiting Drug Allergy Active Reason For Referral No Information Medications Medication SIG (Take, Route, Frequency, Duration) Notes Start Date End Date Status Pramipexole Dihydrochloride 0.125 MG 1 tablet Orally Once a day for 30 day(s) Active Amoxicillin-Pot Clavulanate Not-Taking Meloxicam 15 MG 1 tablet Orally Once a day for 30 day(s) Active Gabapentin 100 MG 1 capsule Orally as needed Pt takes 200 MG Active Prednisone 2.5 mg 1 tab Oral once a day Not-Taking Estradiol Vaginal Cream 0.01% 1 Gram Vaginally Twice a week for 90 days 01/28/2020 Not-Taking Prevacid 30 MG 1 capsule Orally Once a day Active Macrobid 100 MG 1 capsule with food Orally every 12 hrs for 5 days 08/02/2021 Active miSOPROStol 200 MCG as directed Orally 8-12 hrs prior to appointment for 1 days 07/28/2021 Active Lexapro 20 MG 1 tablet Orally Once a day 1 20mg and 1/2 of 20mg to make 30 Mg Active Valtrex 1 GM 1 tablet Orally twice a day for 10 day(s) 10/03/2017 Not-Taking Furosemide 20 MG 1 tablet Orally Once a day Active valACYclovir HCl 500 MG 1 tablet Orally every 12 hrs at earliest sign of outbreak for 3 days 10/09/2017 Not-Taking Valtrex 500 MG 1 tablet Orally Q 12 hr for 3 days 02/27/2020 Active Bactrim DS 800-160 MG 1 tablet Orally Twice a day for 3 days 08/01/2021 Active rOPINIRole HCl 0.5 MG 1 tablet 1 to 3 hours before bedtime Orally Three times a day Not-Taking Ativan 0.5 MG 1 tablet as needed Orally Once a day Active Vitamin A 2400 MCG (8000 UT) 1 capsule Orally Once a day Active Social History Tobacco Use: Social History Observation Description Date Details (start date - stop date) Never Smoker NA - NA Tobacco Use/Smoking Question Answer Notes Are you a nonsmoker Alcohol Screen (Audit-C) Question Answer Notes Did you have a drink contain ing alcohol in the past year? Yes How often did you have a dri nk containing alcohol in the past year? Monthly or less (1 point) How many drinks did you have on a typical day when you were drinking in the past year? 1 or 2 drinks (0 point) Points 1 Interpretation Negative Sexual History Question Answer Notes Had sex in the past 12 months (vaginal, oral, or anal)? No Tobacco use other than smoking: Question Answer Notes Are you an other tobacco user? 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) Active confirmed Problem Obesity (400531719) Obesity, unspecified (E66.9) Active confirmed Problem Restless legs syndrome (84383684) Restless legs syndrome (G25.81) Active confirmed Problem Insomnia (730264014) Insomnia, unspecified (G47.00) Active confirmed Problem Sleep apnea (15053905) Sleep apnea, unspecified (G47.30) Active confirmed Problem Gastric ulcer (826427563) Gastric ulcer, unspecified as acute or chronic, without hemorrhage or perforation (K25.9) Active confirmed Problem Osteoarthritis (712945950) Unspecified osteoarthritis, unspecified site (M19.90) Active confirmed Problem Fibromyalgia (902883897) Fibromyalgia (M79.7) Active confirmed Problem Abnormal uterine bleeding (42442513573744) Abnormal uterine and vaginal bleeding, unspecified (N93.9) Active confirmed Plan Of Treatment Pending Test Test Name Order Date Sonohysterogram 07/28/2021 Urinalysis 07/28/2021 Urinalysis 02/27/2020 Ultrasound : Pelvic 11/28/2016 ONE SWAB 10/03/2017 ONE SWAB 12/10/2019 THIN PREP,HPV,BOZENA IF HPV+ (>29YR)(SCRN) 11/28/2016 MM Digital Mammo Screening 01/02/2018 Insurance Providers Payer Name Payer Address Payer Phone Subscriber Number Group Number Insured Name Patient Relationship to Insured Coverage Start Date Coverage End Date MEDICARE [address] [place] [id number] VICKI LOAIZA OM Self - patient is the insured Medical (General) History Medical History History ICD Code Bursitis Tenodnitis Unspecified osteoarthritis, unspecified site Gastric ulcer, unspecified a s acute or chronic, without hemorrhage or perforation Essential (primary) hypertension Obesity, unspecified Stress incontinence (female) (male) N39. 3 Sleep apnea, unspecified G47.30 Restless legs syndrome G25.81 Major depressive disorder, single episod e, unspecified F32.9 Insomnia, unspecified G47.00 Surgical History Surgery Date(Month/Year) Bilateral Tubal Ligation 12/1977 4 D&C's 1979 -1989 Cholecystectomy 02/2002 Tendon replaced - Rt foot 02/2012 Right Hand Carpal Tunnel Thumb Hospitalization History Reason Date(Month/Year) see Surgery Hx
--- OUTSIDE RECORDS SUMMARY | 2024-10-02 16:06 | XMS_ITS | Clinical Summary ---
Author Organization [facility] Address [address] [facility] [address] [place] [address] Phone Care Team Providers Care Preforms Laminator Name Role Phone Jose Quintero MD Primary Care Provider + [phone] Allergies Active Allergy Reactions Criticality Noted Date [...] Active ferrous sulfate 325 mg (65 mg [place] iron) tablet Take 325 mg by mouth [...] out at fast food places such as [employer]. Patient should avoid eating after 8 PM. [...] should FU with Dr. Sinha and Gudelia. Social History Tobacco Use Types Packs/Day Years [...] Td,Tdap Booster 1950 DEPRESSION SCREENING 1964 HEPATITIS C SCREENING 1970 MAMMOGRAM 1992 COLOGUARD [...] (04/01/2024 2:35 PM EDT) HDL 65 mg/dL [facility] Comment: ? Interpretation <40 mg/dL: Low HDL cholesterol (major risk factor for CHD) Greater than or equal to 60 mg/dL: High HDL cholesterol ( negative risk factor for CHD) HDL - cholesterol is affected by a number of factors, e.g. smoking, excerise, hormones, sex and age. CHOLESTEROL 190 0 - 240 mg/dL [facility] TRIGLYCERIDES 292(H) 30 - 160 mg/dL [facility] LDL 67 50 - 129 mg/dL [facility] Comment: LDL levels in terms of risk for coronary heart disease: <100 mg/dL: Optimal 100-129 mg/dL: Near or above optimal 130-159 mg/dL: Borderline high 160-189 mg/dL: High >190 mg/dL: Very High CARDIAC RISK RATIO 2.9(L) 3.3 - 4.4 C [facility] Blood 04/01/2024 2:35 PM EDT 04/01/2024 2:45 PM EDT Serena Sinha MD LAB BLOOD ORDERABL ES [facility] [address] [place] [address] from Last 3 Months or Most Recently Relevant to Health Maintenance Soderstrom, Nery Personal/Famil y Self [address] [facility] [address] Soderstrom, Nery Personal/Famil y Self [address] [facility] [address] Soderstrom, Nery Personal/Famil y Self [address] [facility] [address] Soderstrom, Nery Personal/Famil y Self [address] [facility] [address] Soderstrom, Nery Personal/Famil y Self [address] [facility] [address] Soderstrom, Nery Personal/Famil y Self [address] [facility] [address] Soderstrom, Nery Personal/Famil y Self [address] [facility] [address] Soderstrom, Nery Personal/Famil y Self [address] [facility] [address] Care Teams Preforms Laminator Relationship Specialty Start Date End Date Jose Quintero MD [address] [place] [address] PCP - General Internal Medicine 01/03/22 Additional Source Comments The information contained in this document represents components of the legal health record. It is not the complete legal health record.[facility]
--- OUTSIDE RECORDS SUMMARY | 2024-10-02 16:06 | XMS_ITS | Clinical Summary ---
Author Organization [facility] Address [address] [place] [address] Phone Care Team Providers Care Flotation Tender Helper Name Role Phone Carola Yepez MD Primary Care Provider Allergies Active Allergy Reactions Criticality Noted Date [...] pramipexole (MIRAPEX) 0.125 mg tablet 12/23/2021 Active Active Problems Problem Noted Date Diagnosed [...] tis 08/16/2022 Depressive disorder 08/16/2022 Polymyalgia rheumatica (CMS/[facility] V24) 08/16/2022 Localized, primary osteoarthritis of hand 2022 [...] AM EST Office Visit Orthopedic Surgery - [address] [address] Vinny Hammond, DPM Arthritis of both feet (Primary Dx); [...] Care Team (Late st Contact Info) Description 10/24/2024 10:00 AM EDT Office Visit Gastroenterology - [address] [place] [phone] Manfred Winters MD [address] [facility] [address] [facility] [address] [place] [address] Health Maintenance Due Date Last Done Comments Breast Cancer Screening 1950 DTaP,Tdap,and Td Vaccines (1 - Tdap) 12/25/1971 RSV Immunization Adult Patients (1 - Risk 60-74 years 1-dose series) 2012 Colorectal Cancer Screening: Colonoscopy 05/21/2022 Depression Screening 05/21/2022 Falls Risk Assessment 05/21/2022 Hepatitis C Screening 05/21/2022 Medicare Annual Wellness Visit 05/21/2022 Social Influencers of Health Screening 05/21/2022 Pneumococcal Vaccine: 50+ Years (2 of 2 - PPSV23) 11/16/2022 11/16/2021 Zoster Vaccines (2 of 2) 12/25/2022 10/30/2022 COVID-19 Vaccine ( - season) 2024 06/13/2022, 03/31/2021, 09/28/2020, Additional [...] age to complete this topic Meningococcal B Vaccine Aged Out No l onger eligible based on patient's age to complete [...] 9:15 AM EST Capsulitis of left foot [facility] DEXA AXIAL SKELETON Routine 05/23/2022 4:52 PM [...] IN CLINIC/BEDSIDE ORDERABLE S Final Result * [facility] DEXA AXIAL SKELETON (05/23/2022 4:52 PM EST) Anatomical Region Laterality Modality Mammography 05/23/2022 2:01 PM EST Narrative 05/23/2022 4:52 PM EST [facility] Diagnostic Imaging Department [address] [place] [address] Patient: ??SODERSTROM,NERY A ?/Age/Sex: 1950 - Unit#: ??[id number] ? Location/Status: ??SPDIMAM/REG CLI ? Mnemonic/Ordering Site: ??MAMDEXAAX/SPMAM Ordering Physician: ??CAROLA YEPEZ MD [facility] Dexa Axial Skeleton - 05/23/22 - 3656 History: Low estrogen state due to menopause. Rheumatoid arthritis. Polymyalgia. Chronic glucocorticoid use. Comparison: 03/10/19 Findings: Bone densitometry is performed utilizing dual energy x-ray absorptiometry (DXA) in the [employer] unit. The lumbar spine and proximal femora [...] 27.9 percent ??Hip 8.9 percent. IMPRESSION: Osteoporosis. [id number] Dictating Physician: ??KAREN BELTRAN MD Electronically Signed by: ??KAREN BELTRAN MD Dic Date/Time: ??05/23/221650 Sign date/Time: ??05/23/221651 Procedure Note Karen Beltran MD - 07/20/2023 [facility] Diagnostic Imaging Department [address] [place] [address] Patient: NERY BENITEZ Carol /Age/Sex: 1950 - 71 - F Unit#: [id number] [facility]ing [facility] Ordering Physician: CAROLA YEPEZ MD [facility] Dexa Axial Skeleton - 05/23/22 - 0600 History: Low estrogen state due to menopause. Rheumatoid arthritis.Polymyalgia. Chronic glucocorticoid use. Comparison: 03/10/19 Findings: Bone densitometry is performed utilizing dual energy x-ray absorptiometry(DXA) in the [employer] unit. The lumbar spine and proximal femora [...] 27.9 percent Hip 8.9 percent. IMPRESSION: Osteoporosis. [id number] Dictating Physician: KAREN BELTRAN MD Electronically Signed by: KAREN BELTRAN MD Dic Date/Time: 05/23/221650 Sign date/Time: 05/23/221651 Carola Yepez MD IMG BI PROCEDURES Final Resu lt from Last 3 Months or Most Recently Relevant to Health Maintenance Insurance MEDICARE MEDICAID - [place] Care Teams Flotation Tender Helper Relationship Specialty Start Date End Date Carola Yepez MD [address] [place] [address] PCP - General Internal Medicine 09/18/17
== END 2024-10-02 13:51 | disposition home or self-care (01) ==
LOC: HO.HUSH 13:08
PROVIDERS: PCP Internal Medicine; Visit Provider Nurse Practitioner Family
DX: Z13.9 Encounter for screening, unspecified (principal)

== ENCOUNTER → 2024-10-02 13:08 | Outpatient (BNVA) | payer MEDICARE, MEDICAID, SELFPAY | PROVIDERS: PCP Internal Medicine; Visit Provider Nurse Practitioner Family | DX: R32 Unspecified urinary incontinence (principal) | CPT/HCPCS: 51798; 81003; 99202 ==

== ENCOUNTER 2024-10-29 14:15 | Outpatient (REF) | payer MEDICARE, MEDICAID, SELFPAY ==
--- NOTE | ~2024-10-29 | US_ITS ---
CLINICAL HISTORY: R32 - Unspecified urinary incontinence US Renal Comparison: None Findings: Right kidney normal size and echotexture, 10.7 cm length. Left kidney normal size and echotexture, 10.3 cm length. 1.2 cm simple appearing cyst within the mid left kidney. No hydronephrosis of either kidney. Normal color Doppler. Urinary bladder is unremarkable. Prevoid volume 190 mL. Postvoid volume 10 mL. Bilateral ureteral jets are visualized. IMPRESSION: 1. No significant abnormality. This document has been electronically signed by: Corina Mcfarlane MD on 10/29/2024 17:22:01
--- OUTSIDE RECORDS SUMMARY | 2024-10-29 14:19 | XMS_ITS | Clinical Summary ---
Author Organization [facility] Address [address] [place] [address] Phone Care Team Providers Care Manager Field Service Name Role Phone Carola Yepez MD Primary Care Provider [phone] Allergies Active Allergy Reactions Criticality Noted Date [...] pramipexole (MIRAPEX) 0.125 mg tablet 12/23/2021 Active cholecalciferol (VITAMIN D-3) 25 mcg (1,000 unit) tablet Take 3 tablets (3,000 Units total) by mouth daily. Active sucralfate (CARAFATE) 1 gram tablet Take 1 tablet (1 g total) by mouth 4 (four) times a day. Take 1 hour before meals and at bedtime 120 each 11 10/24/2024 Active Active Problems Problem Noted Date Diagnosed [...] tis 08/16/2022 Depressive disorder 08/16/2022 Polymyalgia rheumatica (CMS/[facility] V24) 08/16/2022 Localized, primary osteoarthritis of hand [...] Encounters Date Type Department Care Team Description 10/24/2024 10:00 AM EDT Office Visit Gastroenterology - [address] [place] [address] [place] [phone] Manfred Winters MD Iron deficiency (Primary Dx); AVM (arteriovenous malformation) of colon; Gastroesophageal reflux disease without esophagitis; Iron deficiency anemia due to chronic blood loss from Last 3 Months Surgical History Surgery [...] Blood Pressure 122/80 03/07/2022 9:56 AM EDT Sit ting R Arm Pulse 63 03/07/2022 9:56 AM EDT Temperature - - Respiratory Rate - - Oxygen Saturation - - Inhaled Oxygen Concentration - - Weight 94.8 kg (209 lb) 10/24/2024 9:39 AM EDT Height 149.9 cm (4' 11 ) 10/24/2024 9:39 AM EDT Body Mass Index 42.21 10/24/2024 9:39 AM EDT Plan of Treatment Health Maintenance Due Date [...] Procedure Name Priority Date/Time Associated Diagnosis Comments IMMUNOGLOBULIN IGA Routine 10/24/2024 11 :02 AM EDT Iron deficiency TISSUE TRANSGLUTAMINASE, IGA Routine 10/24/2024 11:02 AM EDT Iron deficiency [facility] DEXA AXIAL SKELETON Routine 05/23/2022 4:52 PM EST Encounter for screening for osteoporosis from Last 3 Months or Most Recently Relevant to Health Maintenance Results * Tissue transglutaminase, IgA (10/24/2024 11:02 AM EDT) Tissue Transglutaminase Ab, IgA Quant 1 <4 unit/mL LAB CHEMISTRY METHOD 10/29/2024 11:47 AM EDT [facility] Tissue Transglutaminase Ab, IgA Negative Negative LAB CHEMISTRY METHOD 10/29/2024 11:47 AM [facility] Blood Venous blood specimen / Unknown Venipuncture / Unknown 10/24/2024 11:02 AM EDT 10/24/2024 11:38 AM EDT us Manfred Winters MD LAB BLOOD ORDERABLES Final Resu lt [facility] [address] [place] [address], [place] [phone] * Immunoglobulin IgA (10/24/2024 11:02 AM EDT) IgA 305 61 - 348 mg/dL LAB CHEMISTRY METHOD 10/24/2024 1:12 PM EDT [facility] Blood Venous blood specimen / Unknown Venipuncture / Unknown 10/24/2024 11:02 AM EDT 10/24/2024 11:38 AM EDT us Manfred Winters MD LAB BLOOD ORDERABLES Final Resu lt [facility] [address] [place] [address], [place] [phone] * [facility] DEXA AXIAL SKELETON (05/23/2022 4:52 PM EST) Anatomical Region Laterality Modality Mammography 05/23/2022 2:01 PM EST Narrative 05/23/2022 4:52 PM EST [facility] Diagnostic Imaging Department [address] [place], [place] [id number] Patient: ??SODERSTROM,NERY A ?/Age/Sex: 1950 - 71 - F Unit#: ??[id number] ? Location/Status: ??SPDIMAM/REG CLI ? Mnemonic/Ordering Site: ??MAMDEXAAX/SPMAM Ordering Physician: ??CAROLA YEPEZ MD [facility] Dexa Axial Skeleton - 05/23/22 - 1436 History: Low estrogen state due to menopause. Rheumatoid arthritis. Polymyalgia. Chronic glucocorticoid use. Comparison: 03/10/19 Findings: Bone densitometry is performed utilizing dual energy x-ray absorptiometry (DXA) in the [employer] unit. The lumbar spine and proximal femora [...] 27.9 percent ??Hip 8.9 percent. IMPRESSION: Osteoporosis. [address] Dictating Physician: ??KAREN BELTRAN MD Electronically Signed by: ??KAREN BELTRAN MD Dic Date/Time: ??05/23/221650 Sign date/Time: ??05/23/22 165 Procedure Note Karen Beltran MD - 07/20/2023 [facility] Diagnostic Imaging Department [address] [place] [address] Patient: NERY BENITEZ/Age/Sex: 1950 - 71 - F Unit#: [id number] Location/Status: SPDIMAM/REG CLI Mnemonic/Ordering Site: MAMDEXAAX/SPMAM Ordering Physician: CAROLA YEPEZ MD [facility] Dexa Axial Skeleton - 05/23/22 - 1436 History: Low estrogen state due to menopause. Rheumatoid arthritis.Polymyalgia. Chronic glucocorticoid use. Comparison: 03/10/19 Findings: Bone densitometry is performed utilizing dual energy x-ray absorptiometry(DXA) in the [employer] unit. The lumbar spine and proximal femora [...] 27.9 percent Hip 8.9 percent. IMPRESSION: Osteoporosis. 13048 Dictating Physician: KAREN BELTRAN MD Electronically Signed by: KAREN BELTRAN MD Dic Date/Time: 05/23/221650 Sign date/Time: 05/23/22 165 Carola Yepez MD IMG BI PROCEDURES Final Resu lt from Last 3 Months or Most Recently Relevant to Health Maintenance Insurance MEDICARE MEDICAID - [place] Care Teams Manager Field Service Relationship Specialty Start Date End Date Carola Yepez MD [address] [place] [id number] PCP - General Internal Medicine 09/18/17
--- OUTSIDE RECORDS SUMMARY | 2024-10-29 14:19 | XMS_ITS | Continuity of Care Document ---
Author Organization [facility] [address] [facility] [address] [facility] [address] [place] [address] Phone [phone] Care Team Providers Care Collar Packer Name Role Phone Jose Quintero M.D. 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 08/11/2024 Multivitamin Adults 50+Adlt 50+ Tablets 1 by mouth every day Kristy Szymanski M.D. 02/24/2024 Calcium 600 + [id number] Tablets 1 by mouth every day Kristy Szymanski M.D. 02/24/2024 Escitalopram Pyjrasz87xq Tablets Take 1 & 1/2 Tablets By Mouth Daily Jose Quintero M.D. Pramipexole Dihydrochloride0.125m g Tablets Take 2 Tablets By Mouth AT Bedtime Unknown Xttsjzjrl161us Capsules Take One Capsule By Mouth Twice A Day leonardn Naveen Watkins, Noosxpamho99ab Tablets Take 1 Tablet By Mouth Twice Weekly Jose Quintero M.D. Diclofenac Sodium1% Gel Apply 4 Times A Day as Needed For Pain Unknown Esxjnla6oz/100ML Solution 06/2019, 10/2020, 08/2022 Kristy Szymanski M.D. Rhexul53vd Capsules DR 1 every day as needed Unknown Steph Lisutdf341yk Tablets 1 by mouth every day Unknown [...] Hydroxy Esoterix <pending> Basic Metabolic Panel 08/18/2022 [facility] Glucose 94 mg/dL (70-99) BUN 19 mg/dL (8-23) Creatinine 0.5 mg/dL (0.5-1.0) Sodium 141 mmol/L (133-145) Potassium 4.1 mmol/L (3.6-5.2) Chloride 104 mmol/L (98-107) Bicarbonate 30 mmol/L High (22-29) Anion Gap 7 (4-17) Calcium 9.8 mg/dL (8.6-10.5 ) Estimated GFR Creatinine 100 ML/MIN/1.7 3M2 3 25Oh Vitamin D 08/18/2022 [facility] 25Oh Vitamin D 23.4 NG/ML (20-50) TSH With Reflex To FT4 08/18/2022 [facility] TSH With Reflex To FT4 1.17 uIU/mL (0.4-4.2) Albumin 08/18/2022 [facility] Albumin 4.2 GM/DL (3.4-4.8) 1 Vitamin D deficiency has been defined by the [place] of Medicine and an Endocrine Society practice guideline as a level of serum 25-OH vitamin D less than 20 ng/mL (1,2). The Endocrine Society went on to further define vitamin D insufficiency as a level between 21 and 29 ng/mL (2). 1. IOM ([place] of Medicine). 2010. Dietary reference intakes for [...] sex. Procedures Date Code Description Status 08/11/2024 87530 Collection Of Venous Blood B y Venipuncture Completed 02/21/2023 NSHOWOFF No Show Office Visit Complet ed 08/18/2022 32140 Collection Of Venous Blood B y Venipuncture [...]
--- OUTSIDE RECORDS SUMMARY | 2024-10-29 14:19 | XMS_ITS | Patient Health Record ---
Author Organization [facility] Address [address] [place] [address] Care Team Providers Care Hot Patcher Name Role Phone Jose Quintero MD Primary Care Provider Unavail able Calli Martínez Unavailable [phone] Allergies Allergen (clinical drug ingredient) Drug/Non Drug [...] Status Risk Notes Problem Postmenopausal atrophic vaginitis (27843838) Postmenopausal atrophic vaginitis (N95.2) Active confirmed Problem Mixed incontinence (377935784) Mixed incontinence (N39.46) Active confirmed Problem Essential hypertension (19557211) Essential (primary) hypertension (I10) Active confirmed Problem Major depression, single episode (82276565) Major depressive disorder, single episode, unspecified (F32.9) Active confirmed Problem Herpetic vulvovaginitis (25746752) 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) Active confirmed Problem Obesity (249057769) Obesity, unspecified (E66.9) Active confirmed Problem Restless legs syndrome (21714220) Restless legs syndrome (G25.81) Active confirmed Problem Insomnia (204930999) Insomnia, unspecified (G47.00) Active confirmed Problem Sleep apnea (62223049) Sleep apnea, unspecified (G47.30) Active confirmed Problem Gastric ulcer (961726435) Gastric ulcer, unspecified as acute or chronic, without hemorrhage or perforation (K25.9) Active confirmed Problem Osteoarthritis (309357896) Unspecified osteoarthritis, unspecified site (M19.90) Active confirmed Problem Fibromyalgia (351441192) Fibromyalgia (M79.7) Active confirmed Problem Abnormal uterine bleeding (36614867615759) Abnormal uterine and vaginal bleeding, unspecified (N93.9) [...] MEDICARE [address] [place] [id number] [phone] [id number] VICKI LOAIZA OM Self - patient is [...]
--- OUTSIDE RECORDS SUMMARY | 2024-10-29 14:19 | XMS_ITS | Encounter Summary ---
Author Organization [facility] Address [address] [place] [address] Care Team Providers Care Research And Evaluation Analyst Name Role Phone Jose Quintero MD Primary Care Provider [phone] Reason for Visit * Reason Comments Follow-up Encounter Details Date Type Department Care Team (Late st Contact Info) Description 10/24/2024 10:00 AM EDT Office Visit Gastroenterology - [address] [place] [phone] Manfred Winters MD [address] [place] [address] [place] [id number] Iron deficiency (Primary Dx); AVM (arteriovenous malformation) of colon; Gastroesophageal reflux disease without esophagitis; Iron deficiency anemia due to chronic blood loss Social History Tobacco Use Types Packs/Day Years Used Date Smoking Tobacco: Never Smokeless Tobacco: Never Alcohol Use Standard Drinks/Week Comments Yes 0 [...] Mass Index 42.21 10/24/2024 9:39 AM EDT documented in this encounter Ordered Prescriptions Prescription Sig Dispense Quantity Refills Last Filled Start Date End Date sucralfate (CARAFATE) 1 gram tablet Take 1 tablet (1 g total) by mouth 4 (four) times a day. Take 1 hour before meals and at bedtime 120 each 11 10/24/2024 documented in this encounter Progress Notes * Manfred Winters MD - 10/24/2024 10:00 AM EDT PROGRESS NOTE Subjective Patient ID: Nery Martinez is a 73 y.o. female. Chief Complaint Patient presents with Follow-up Anemia. In January 2024 she did undergo colonoscopy. She did have multiple angioectasias in the entire colon. Interestingly on upper endoscopy she did have a very prominent gastric pattern with multiple superficial telangiectasia like appearing lesions. Small bowel biopsies were negative. Gastric biopsies were negative for h. Pylori. Recommendation had been to maintain her on iron and try and keepup with her H&H. I would add that small bowel biopsies were negative. Dr. Quintero follows her labs. Sees him in May. Of note is that she is status post a gastric sleeve, and in the past was told she was B12 deficient. In our office in December she stated she weighed 200 pounds. She is 4 feet 10 inches tall. Has not been on B12, will start oral. B12 deficiency. Told pernicious anemia. Gets shots, but has not been compliant, as above. Now on oral B12. Blood counts are fine. Is not taking iron now. Colon polyp in February 08 she did undergo colonoscopy as above and had a 1 cm polyp removed from thececum. Pathology showed this to be a sessile serrated lesion. This was actually her first colonoscopy since 2013. GERD. She has been on Nexium daily. She has been stable on the Nexium she has denied any dysphagia. Is on one tab a day. Swallowing is fine. Had pseudogout in hand, was on celebrex. Gave her heartburn. Stopped the celebrex and better. Ok to use prn tums, or gaviscon. Fx foot in December. Was placed on Celebrex, was bothering her stomach. Also gave her edema in legs. Angiogram two years ago told veins perfect. Episode of chest pain with bending and lifting which went away with mylanta. (Has had evaluated before). Is on Nexium. Social History Socioeconomic History Marital status: Spouse name: None Number of children: None Years of education: None Highest education level: None Occupational History None Tobacco Use Smoking status: Never Smokeless tobacco: Never Substance and Sexual Activity Alcohol use: Yes Comment: 1 -2 a year Drug use: Never Sexual activity: None Other Topics Concern None Social History Narrative None Review of Systems Constitutional: Negative. Respiratory: Negative for shortness of breath. Cardiovascular: Negative for chest pain. See note above Gastrointestinal: Negative. Genitourinary: Negative for difficulty urinating. Skin: Negative for color change. Psychiatric/Behavioral: Negative for agitation and confusion. Objective Physical Exam Vitals reviewed. Constitutional: General: She is awake. She is not in acute distress. Appearance: Normal appearance. She is not ill-appearing, toxic-appearing or diaphoretic. HENT: Head: Normocephalic. Nose: Nose normal. Mouth/Throat: Mouth: Mucous membranes are moist. Pharynx: Oropharynx is clear. No oropharyngeal exudate. Eyes: Extraocular Movements: Extraocular movements intact. Pupils: Pupils are equal, round, and reactive to light. Cardiovascular: Rate and Rhythm: Normal rate. Pulses: Normal pulses. Pulmonary: Effort: Pulmonary effort is normal. Abdominal: General: There is no distension. Palpations: Abdomen is soft. There is no mass. Tenderness: There is no abdominal tenderness. There is no right CVA tenderness, left CVA tenderness, guarding or rebound. Hernia: No hernia is present. Musculoskeletal: General: Normal range of motion. Cervical back: Neck supple. Skin: General: Skin is warm. Coloration: Skin is not jaundiced or pale. Neurological: General: No focal deficit present. Mental Status: She is alert and oriented to person, place, and time. Psychiatric: Mood and Affect: Mood normal. Behavior: Behavior normal. Behavior is cooperative. Assessment/Plan GERD and epigastric pain. He is doing well except when she takes Celebrex. I did give her prescription for sulcal fate to use when she takes the Celebrex and suggested she could also try increasing her Nexium to twice daily. Celebrex certainly is one of the safest NSAIDs and she notes that it really does improve the quality of life given her arthritis and complaints. I did suggest she continue taking the iron but perhaps every other than every third day. With all of her telangiectasias this may help her. Obviously from time to time she will need to have her bloodwork checked to make sure were not getting too much iron When she is not on Celebrex we did discuss possibly supplementing with Tums and/or Gaviscon as needed. Given her B12 deficiency and iron deficiency I did want to recheck her for celiac this is ordered. Colonoscopy with a 1 cm polyp I would consider a 3-year recall i.e. 2026 Last Recorded Vitals: Height 1.499 m (59 ), weight 94.8 kg (209 lb). Labs: Lab Results Component Value Date WBC 6.1 05/01/2024 HGB 11.8 05/01/2024 HCT 37.5 05/01/2024 MCV 87.2 05/01/2024 PLT 263 05/01/2024 No results found for: NA , K , CL , CO2 , BUN , CREATININE , CALCIUM , PROT , BILITOT , ALKPHOS , ALT , AST , GLUCOSE No results found for: WOUNDCX , BLOODCX , URINECX , CSFCX , AFBCX , MRSA Pertinent new radiology results/studies: ORTHO X-RAY OF ANKLE (3 VIEWS) Right ankle 3 views weightbearing: No fractures dislocations. Sclerosis of the subtalar joint. Arthritic changes to the midtarsal joint. MEDICATIONS: Current Hospital Medications: Current Outpatient Medications: acetaminophen (TYLENOL) 325 mg tablet, Take 2 tablets (650 mg total) by mouth every 6 (six) hours if needed., Disp: , Rfl: calcium carbonate-vitamin D3 600 mg-5 mcg (200 unit) per tablet, Take by mouth., Disp: , Rfl: celecoxib (CeleBREX) 100 mg capsule, Take 1 capsule (100 mg total) by mouth 2 (two) times a day., Disp: , Rfl: cholecalciferol (VITAMIN D-3) 25 mcg (1,000 unit) tablet, Take 3 tablets (3,000 Units total) by mouth daily., Disp: , Rfl: escitalopram (LEXAPRO) 20 mg tablet, Take 30 mg by mouth daily., Disp: , Rfl: esomeprazole (NexIUM) 10 mg packet, Take 10 mg by mouth every morning (before breakfast)., Disp: , Rfl: fexofenadine-pseudoephedrine (MATT-D) 60-120 mg per 12 hr tablet, Take 60 mg by mouth., Disp: , Rfl: gabapentin (NEURONTIN) 100 mg capsule, Take 100 mg by mouth daily., Disp: , Rfl: LORazepam (ATIVAN) 0.5 mg tablet, Take 0.5 mg by mouth every 6 hours as needed., Disp: , Rfl: multivitamin with minerals (CENTRUM) tablet, Take by mouth., Disp: , Rfl: pramipexole (MIRAPEX) 0.125 mg tablet, , Disp: , Rfl: Home Medications: She has a current medication list which includes the following long-term medication(s): escitalopram, fexofenadine-pseudoephedrine, gabapentin, lorazepam, and pramipexole. Patient Active Problem List Diagnosis Chest pain [...] and giddiness Essential hypertension Fibromyalgia Polymyalgia rheumatica (CMS/HCC V24) Gastric ulcer Herpetic vulvovaginitis Insomnia Intestinal malabsorption following gastrectomy Localized, primary osteoarthritis of hand Major depression, single episode Mixed incontinence Multinodular goiter Obesity Osteoarthritis Osteoporosis Otorrhea of right ear Postmenopausal atrophic vaginitis Refractory migraine Restless legs syndrome Sensorineural hearing loss (SNHL) of both ears Subclinical hyperthyroidism Manfred Winters MD 10:02 AM EDT documented in this encounter Plan of Treatment Not on file documented as of this encounter Results * Immunoglobulin IgA (10/24/2024 11:02 AM EDT) IgA 305 61 - 348 mg/dL LAB CHEMISTRY METHOD 10/24/2024 1:12 PM EDT [facility] Blood Venous blood specimen / Unknown Venipuncture / Unknown 10/24/2024 11:02 AM EDT 10/24/2024 11:38 AM EDT us Manfred Winters MD LAB BLOOD ORDERABLES Final Resu lt Performing Organization Address [facility] Co de Phone Number [facility] [address] [place] [address], [place] [phone] * Tissue transglutaminase, IgA (10/24/2024 11:02 AM EDT) Tissue Transglutaminase Ab, IgA Quant 1 <4 unit/mL LAB CHEMISTRY METHOD 10/29/2024 11:47 AM EDT [facility] Tissue Transglutaminase Ab, IgA Negative Negative LAB CHEMISTRY METHOD 10/29/2024 11:47 AM EDT [facility] Blood Venous blood specimen / Unknown Venipuncture / Unknown 10/24/2024 11:02 AM EDT 10/24/2024 11:38 AM EDT us Manfred Winters MD LAB BLOOD ORDERABLES Final Resu lt Performing Organization Address [facility] de Phone Number [facility] [address] [place] [address], [place] [phone] documented in this encounter Visit Diagnoses Diagnosis Iron deficiency- Primary Disorders of iron metabolism AVM (arteriovenous malformation) of colon Gastroesophageal reflux disease without esophagitis Esophageal reflux Iron deficiency anemia due to chronic blood loss Iron deficiency anemia secondary to blood loss (chronic) documented in this encounter Historical Medications * This list may reflect changes made after this encounter. cholecalciferol (VITAMIN D-3) 25 mcg (1,000 unit) tablet Take 3 tablets (3,000 Units total) by mouth daily. added in this encounter Care Teams Research And Evaluation Analyst Relationship Specialty Start Date End Date Jose Quintero MD [address] [place] [address] PCP - General Internal Medicine 09/18/17 documented as of this encounter
--- OUTSIDE RECORDS SUMMARY | 2024-10-29 14:19 | XMS_ITS | Clinical Summary ---
Author Organization [facility] Address [address] [facility] [address] [place] [address] Phone Care Team Providers Care Chain Carrier Name Role Phone Jose Quintero MD Primary Care Provider [phone] Allergies Active Allergy Reactions Criticality Noted Date Comments Codeine Nausea and/or Vomiting 01/03/2022 Pt states has had oxycodone in past without symptoms Isosorbide 01/03/2022 Meperidine Nausea and/or Vomiting 01/03/2022 Metaxalone Hives 01/03/2022 Procaine Nausea and/or Vomiting 01/03/2022 Sulfa (Sulfonamide Antibiotics) Nausea and/or Vomiting 01/03/2022 Medications escitalopram oxalate (LEXAPRO) 20 MG tablet Take 30 mg by mouth daily. 2 Active diclofenac sodium (VOLTAREN) 1 % Gel Apply topically. 2 Active gabapentin (NEURONTIN) 100 MG capsule Take 100 mg by mouth nightly at bedtime. 2 Active pramipexole (MIRAPEX) 0.125 MG tablet Take 0.125 mg by mouth nightly at bedtime. 2 tabs at bedtime 2 Active esomeprazole (NEXIUM) 20 MG capsule Take 30 mg by mouth daily before breakfast. Active celecoxib (CELEBREX) 200 MG capsule Active furosemide (LASIX) 20 MG tablet Three times a week Active lidocaine (LIDODERM) 5 % 4 Active famotidine (PEPCID) 20 MG tablet Take 20 mg by mouth nightly at bedtime. 4 Active ascorbic acid, vitamin C, (VITAMIN C) 500 MG tablet Take 500 mg by mouth daily. Active ferrous sulfate 325 mg (65 mg [place] iron) tablet Take 325 mg by mouth daily with breakfast. Active zoledronic acid (RECLAST) 5 mg/100 mL PgBk Inject into the vein. Active therapeutic multivitamin tablet Take 1 tablet by mouth daily. Active traMADoL (ULTRAM) 50 mg tablet Take 50 mg by mouth nightly at bedtime. 4 Active LORazepam (ATIVAN) 0.5 MG tablet Take 0.5 mg by mouth every 6 hours as needed. Active fexofenadine-pseu doephedrine (MATT-D) 60-120 mg per tablet Take 60 mg by mouth. 4 Active acetaminophen (TYLENOL) 325 mg tablet Take [...] out at fast food places such as [employer]. Patient should avoid eating after 8 PM. [...] with a working camera? Not on file Comments Unknown Sex and Gender Information Value Date Recorded Sex Assigned at Not on file Legal Sex Female 2:06 PM EDT Gender Identity Not on file Sexual Orientation [...] 2012 OSTEOPOROSIS SCREENING INITI AL (ONE-TIME) 2017 COVID-19 VACCINE (1 - 2023-2 5 season) [...] (04/01/2024 2:35 PM EDT) HDL 65 mg/dL [facility] Comment: ? Interpretation <40 mg/dL: Low HDL cholesterol (major risk factor for CHD) Greater than or equal to 60 mg/dL: High HDL cholesterol ( negative risk factor for CHD) HDL - cholesterol is affected by a number of factors, e.g. smoking, excerise, hormones, sex and age. CHOLESTEROL 190 0 - 240 mg/dL [facility] TRIGLYCERIDES 292(H) 30 - 160 mg/dL [facility] LDL 67 50 - 129 mg/dL [facility] Comment: LDL levels in terms of risk for coronary heart disease: <100 mg/dL: Optimal 100-129 mg/dL: Near or above optimal 130-159 mg/dL: Borderline high 160-189 mg/dL: High >190 mg/dL: Very High CARDIAC RISK RATIO 2.9(L) 3.3 - 4.4 C [facility] Blood 04/01/2024 2:35 PM EDT 04/01/2024 2:45 PM EDT us Serena Sinha MD LAB BLOOD ORDERABLES Final Result [facility] [address] [place] [address] from Last 3 Months or Most Recently Relevant to Health Maintenance Insurance MEDICARE PART A & B [place] & B [facility]IC[facility] PART A & [place] [facility] [place] Care Teams Chain Carrier Relationship Specialty Start Date End Date Jose Quintero MD NPI: [id number] [place] [id number] PCP - General Internal Medicine 01/03/22 Additional Source Comments The information contained in this document represents components of the legal health record. It is not the complete legal health record.[facility]
--- OUTSIDE RECORDS SUMMARY | 2024-10-29 14:19 | XMS_ITS | Data Portability ---
Author Organization [place] - [facility], Allergy Address [address] [address] Care Team Providers Care Floor Care Technician Name Role Phone CAROLA YEPEZ Primary Care Provider [phone] Assessment Encounter Date Assessment Date Assessment LastModified [...] Orders famotidine 20 mg tablet 2023 024 [id number], [address] [place], [address], 4 13:40:03 famotidine 20 mg tablet 2023 [id number], [address] [place], [address], 4 11:43:18 Patient TargetsNo targets recorded. Patient InstructionsNo instructions recorded. Reason for Referral None Reported. Problems Name Problem SNOMED Code Status Onset Date Resolution Date Notes Provider Name and Address Organization Details Recorded Time Otorrhea of right ear 47060032077 21297 Active 2016 Otorrhea, right ear; Note: Date Diagnosed : 04/19/2017 2:28 PM (H92.11) Not Available [facility] 4 02:56:19 Acute sialoaden itis 755145949 Active 2016 Acute sialoaden itis; Note: Date Diagnosed : 11/14/2016 4:37 PM (K11.21) Not Available [facility] 4 02:56:21 Acute serous otitis media of left ear [id number] 89388 Active 2016 Acute serous otitis media, left ear; Note: Date Diagnosed : 11/14/2016 4:37 PM (H65.02) Not Available [facility] 4 02:56:20 Difficult y speaking Active 2014 Hoarsenes s; Note: Date Diagnosed : 01/21/2015 11:40 AM (784.49) Not Available [facility] 4 02:56:21 Diffuse otitis externa 44756991 Active 2016 Diffuse otitis externa, right ear; Note: Date Diagnosed : 04/19/2017 2:31 PM (H60.311) Diffuse otitis externa, left ear; Note: Date Diagnosed : 11/14/2016 4:44 PM (H60.312) ; Start Date : 7 Not Available [facility] 4 02:56:21 Sensorine ural hearing loss of bilateral ears 669148347 Active 2017 Sensorine ural hearing loss, bilateral ; Note: Date Diagnosed : 12/17/2017 3:37 PM (H90.3) Not Available [facility] 4 02:56:23 Benign paroxysma l positiona l vertigo 061286589 Active 2016 Benign paroxysma l vertigo, right ear; Note: Date Diagnosed : 07/26/2016 3:00 PM (H81.11) Not Available [facility] 4 02:56:22 Cough 06315845 Active 2018 Cough; Note: Date Diagnosed : 06/25/2018 3:22 PM (R05) Not Available [facility] 4 02:56:22 Obstructi ve sleep apnea syndrome 96871295 Active 2016 Obstructi ve sleep apnea (adult) (pediatri c); Note: Date Diagnosed : 03/07/2017 10:47 AM (G47.33) Not Available [facility] 4 02:56:22 Candidal otitis externa 02423873 Active 2016 Candidal otitis externa; Note: Date Diagnosed : 07/26/2016 3:02 PM (B37.84) Not Available [facility] 4 02:56:22 Atypical facial pain 69081586 Active 2016 Atypical facial pain; Note: Date Diagnosed : 03/07/2017 10:47 AM (G50.1) Not Available [facility] 4 02:56:20 Refractor y migraine 910914009 Active 2016 Other migraine, intractab le, without status migrainos us; Note: Date Diagnosed : 03/07/2017 10:46 AM (G43.819) Not Available [facility] 4 02:56:23 Dizziness and giddiness 534204746 Active 2016 Dizziness and giddiness ; Note: Date Diagnosed : 03/07/2017 10:46 AM (R42) Not Available [facility] 4 02:56:20 Disorder of vocal cord 36350938 Active 2014 Vocal Cord Nodule; Note: Date Diagnosed : 02/19/2015 4:48 PM (478.5) Not Available [facility] 4 02:56:20 Allergic rhinitis 23006982 Active 2016 Other allergic rhinitis; Note: Date Diagnosed : 03/07/2017 10:49 AM (J30.89) Note: Date Diagnosed : 03/07/2017 10:49 AM (J30.89) Not Available [facility] 4 01:15:03 Gastroeso phageal reflux disease without esophagit is 612171100 Active 2023 Ade martinez [place] - [facility] 11:42:41 Chronic hoarsenes s 73466537394 Active 2023 Ade martinez [place] [facility] 12:03:51 Problem Notes None recorded. Procedures Surgical History Date Name Laterality Status Provider Name and Address Organization Details Recorded Time 11/21/19 24 Fiberoptic Laryngoscopy (Comprehensive) completed Ade Johnson [place] - [facility] 11/21/2023 12:03:39 02/17/20 02 procedure on gallbladder completed Manisha Nam [place] - [facility] 11/21/2023 11:37:34 11/17/19 00 laparoscopic sleeve gastrectomy completed Manisha Nam [place] - [facility] 11/21/2023 11:37:59 Imaging Results None recorded. Procedure Notes None recorded. Medical Equipment None Reported. Allergies Allergen ID Allergen Name Allergen Category Reaction Reaction Severity Criticality Documentation Date Start Date Code Code System Note Provider Name and Address Organization Details Recorded Time 131002 meperidin e hydrochlo ride medicatio n other Not available Not available 10/30/2023 98552 5 RxNorm React ion: unkno wn, unspe cifie d;; Not Available [facility] 01:25:00 222980 Demerol medicatio n Not available Not available Not available 11/21/2023 50526 1 RxNorm Manisha martinez [place] [facility] 11:31:28 617531 morphine medicatio n Not available Not available Not available 11/21/2023 7052 RxNorm Manisha martinez [place] [facility] 11:31:41 Medications Name Sig Start Date Stop Date Status Note LastModified by Organization Details LastModified Time celecoxib 200 mg capsule TAKE ONE CAPSULE BY MOUTH EVERY DAY NEEDED FOR PAIN active Not Available Not Available No t Available neomycin- polymyxin -hydrocor t 3.5 mg/mL-10, 000 unit/mL-1 % ear solution 2016 active Medicati on ID: [id number] D uration Value: 10 Brand Name: neomycin [...] mg tablet 11/20 completed Medicati on ID: [id number] D uration Value: 30 Brand Name: trazodon e Send Method: E-Prescr ibed Sub s Allowed: subs ADIN ventura Instruct ion: TAKE 1-2 TABLETS BY MOUTH AT BEDTIME Medicati onGeneri cName: trazodon e Medica tion ID: [id number] D uration Value: 30 Brand Name: trazodon [...] topical cream 11/20 completed Medicati on ID: [id number] Rc bess By Name: RENAY Nance nd Name: Lotrison e Send Method: E-Prescr ibed Sub s Allowed: subs OK Speci al Instruct ion: apply to external ear tid X 2 weeks Me dication GenericN paul: Lotrison e Medica tion ID: [id number] P iram bess By Name: RENAY Nance [...] elayed release 2016 active Medicati on ID: [id number] B rand Name: Prevacid Send Method: E-Prescr ibed Sub s Allowed: subs OK Medic ationGen ericName : Prevacid Not Available Not Available Not Available Macrobid 100 mg capsule 2016 active Medicati on ID: [id number] B rand Name: Macrobid Send Method: E-Prescr ibed Sub s Allowed: subs OK Medic ationGen ericName : Macrobid Not Available Not Available Not Available ofloxacin 0.3 % ear drops 11/14 completed Medicati on ID: [id number] Du ration Value: 10 Reason: () Brand Name: ofloxaci n Send Method: E-Prescr ibed Sub s Allowed: subs OK Medic ationGen ericName : ofloxaci n Not Available Not Available Not Available famotidin e 20 mg tablet TAKE ONE TABLET BY MOUTH EVERY DAY AT BEDTIME active Not Available Not Available No t Available ropinirol e 0.25 mg tablet 2016 active Medicati on ID: [id number] D uration Value: 30 Brand Name: ropiniro le Send Method: E-Prescr ibed Sub s Allowed: subs OK Speci al Instruct ion: TAKE TWO TABLETS BY MOUTH ONCE DAILY AT BEDTIME Medicati onGeneri cName: waliiniro le Not Available Not Available Not Available doxycycli ne monohydra te 100 mg capsule 05/22 completed Medicati on ID: [id number] Du ration Value: 10 Brand Name: doxycycl ine monohydr ate Send Method: E-Prescr ibed Sub s Allowed: subs OK [facility] doxycycl ine monohydr ate Not [...] topical solution 05/22 completed Medicati on ID: [id number] Rc bess By Name: RENAY Nance nd [...] mg tablet 11/20 completed Medicati on ID: [id number] D uration Value: 30 Brand Name: furosemozzie de Send Method: E-Prescr ibed Sub s Allowed: subs OK Speci al Instruct ion: TAKE 1 TO 2 TABLETS ONCE DAILY BY MOUTH Me dication GenericN paul: furosemi de Medic ation ID: [id number] D uration Value: 30 Brand Name: furosemi [...] 4 drop 11/20 completed Medicati on ID: [id number] D uration Value: 14 Prescri bed By Name: RENAY Cardenas nd Name: TobraDex Send Method: E-Prescr ibed Sub s Allowed: subs OK Speci al Instruct ion: apply to right ear as prescrib ed Medic [facility] ericName : TobraDex Medicat ion ID: [id number] D uration Value: 14 Prescri bed By Name: RENAY Cardenas nd Name: TobraDex Send Method: E-Prescr ibed Sub s Allowed: subs ADIN ventura Instruct ion: apply to right ear as prescrib ed Medic [facility] ericName : TobraDex Not Available Not [...] 4 drop 11/20 completed Medicati on ID: [id number] D uration Value: 14 Prescri bed By Name: Ade Johnson RENAY Smith gina Name: Ciprodex Send Method: E-Prescr ibed Sub s Allowed: subs OK Medic ationGen ericName : Ciprodex Medicat ion ID: [id number] D uration Value: 14 Prescri bed By Name: Ade Johnson RENAY Smith gina Name: Ciprodex Send Method: [...] Updated DateTime 01/16/2024 148.59 cm 40.5 kg/m2 48069.7 g Carola Kebede [place] - [facility] 01/16/2024 13:20:29 Date Recorded Body height Body mass index (BMI) Body weight Provider Name and Address Organization Details Last Updated DateTime 11/21/2023 148.59 cm 40.5 kg/m2 92166.7 g Manisha Fernando [facility] 11/21/2023 11:31:13 Social History None recorded. [...] martinez [place] - [facility] 11/21/2023 11:38:19 Pneumococcal conjugate PCV 13 2 completed Manisha martinez [place] - [facility] 11/21/2023 11:38:36 Past Encounters Encounter ID Performer Location Encounter Start Date Encounter Closed Date Diagnosis/Indication Diagnosis SNOMED-CT Code Diagnosis ICD10 Code Diagnosis Note [id number] ADE JOHNSON PA-C [facility] on [address] [place] [address], [place] [address] 11/21/2023 10:56:00 11/23/2023 13:14:35 Gastroesophageal reflux disease without esophagitis 193217560 K21.9 Chronic hoarseness 29497 59944 105 R49.0 Allergic rhinitis 260427 04 J30.9 [id number] ADE JOHNSON PA-C [facility] on [address] [place] [address], [place] [address] 01/16/2024 13:15:07 01/16/2024 13:41:34 Chronic hoarseness 8295856839 105 R49.0 Gastroesop hageal reflux disease without esophagitis 882335285 K21.9 Health Concerns Section Related Observation LastModified by Organization Detai ls LastModified Time None Recorded Concern Status LastModified by Organization Details LastModified Time None Recorded Advance Directives Directive None Recorded Payers Insurance Date Sequence Insurance Name Policy Number Policy Pedroza Covered Member ID Pedroza Member ID Guarantor Name 01/13/2024 1 MEDICARE B-[place]: [employer] Nery A Soderstrom [id number] Nery Soderstrom 01/17/2024 2 [place] [facility] Nery Soderstrom [id number] Nery Soderstrom Notes Date Note Type Note [...] martinez [place] - [facility] 11/21/2023 12:07:04 01/16/2024 text/html 72 year [...] martinez [place] - [facility] 01/16/2024 13:40:15 OBGyn Episode No OBEpisode recorded.
== END 2024-10-29 14:16 | disposition home or self-care (01) ==
LOC: HO.US 14:15
PROVIDERS: PCP Internal Medicine; Visit Provider Nurse Practitioner Family
DX: R32 Unspecified urinary incontinence (principal)
CPT/HCPCS: 76770

== ENCOUNTER → 2024-10-29 14:19 | Outpatient (BNV) | payer MEDICARE, MEDICAID, SELFPAY | PROVIDERS: PCP Internal Medicine; Visit Provider Radiology Diagnostic Radiology | DX: R32 Unspecified urinary incontinence (principal) | CPT/HCPCS: 76770 ==

== ENCOUNTER 2025-01-05 12:57 | Outpatient (AMB) | payer MEDICARE, MEDICAID, SELFPAY ==
--- NOTE | 2025-01-05 13:00 | MHC.OFFVIS ---
Intake Visit Reasons: 4M follow up/ US(set) Intake Note: Patient is present for 4M/US Urology Medication:NONE Antibiotic Allergy:SULFA Blood Thinner:NONE TODAY'S PVR:0ML'S Locks Inspector Required: No Allergies meperidine (From DEMEROL) Allergy (Unknown, Verified 01/05/25 13:37) NAUSEA/VOMITING metaxalone (From SKELAXIN) Allergy (Unknown, Verified 01/05/25 13:37) HIVES Sulfa (Sulfonamide Antibiotics) (SULFA (SULFONAMIDE ANTIBIOTICS)) Allergy (Unknown, Verified 01/05/25 13:37) NAUSEA/VOMITING PLASTIC TAPE Allergy (Unknown, Uncoded 01/05/25 13:37) REDNESS Medication List - Last Reconciled 01/05/25 by EVERETTE Akers-MIREILLE celecoxib 200 mg PO DAILY colchicine mg PO escitalopram oxalate 30 mg PO DAILY famotidine 20 mg PO DAILY furosemide mg PO gabapentin mg PO .prn pramipexole 0.25 mg PO BEDTIME valacyclovir 500 mg PO BID 3 days vitamin A palmitate 10,000 units PO DAILY HPI Comments Details: Nery is a very pleasant 74-year-old female patient of Dr. Quintero. She has a past medical history of rheumatoid arthritis, obesity, hypothyroidism, polymyalgia, restless leg syndrome, pernicious anemia, plantar fasciitis, depression, anxiety, sleep apnea, GERD, and traumatic diastasis of of symphysis pubis. She presents to the office today for follow-up. Of note, patient was seen approximately 3 months ago as a new patient for mixed urinary incontinence at which time a retroperitoneal ultrasound was ordered for further assessment evaluation. These results were reviewed and communicated with the patient today. 11/09 bilateral kidneys are normal in size and echotexture. 1.2 cm simple appearing cyst within the left kidney. No hydronephrosis noted bilaterally. The urinary bladder is unremarkable. No significant abnormality noted. She discusses her recent left lower leg surgical intervention to replace a tendon with donor tendon. She reports to be covering well. She continues to utilize a proximally 1 peripad per day. She also reports noting episodes of urge incontinence happen more frequently with caffeine/coffee intake as well as strawberry lemonade. We did discussed bladder triggers and irritants. She does have a past history of 1 vaginal delivery with prolonged labor and a pelvic infection. In office urinalysis results were reviewed with the patient today. PVR 0 mL. She otherwise denies nocturia, hematuria, dysuria, foul smelling urine, changes to urinary stream, flank pain, fever, and or chills. We also discussed further treatment options of mixed urinary incontinence and risks and benefits of these treatment options. Will refer to pelvic floor therapy for further assessment evaluation. All questions were answered. She otherwise offers no other issues or concerns at this time. [facility] Medical History Rheumatoid arthritis Obesity (BMI 30-39.9) Hypothyroidism Polymyalgia Restless legs syndrome Pernicious anemia Neuralgia Plantar fasciitis Depression Anxiety Sleep apnea with use of continuous positive airway pressure (CPAP) GERD (gastroesophageal reflux disease) Erosive (osteo)arthritis Chronic ear infection Chronic sinus infection Herpes Traumatic diastasis of symphysis pubis Surgical History History of repair of hiatal hernia History of sleeve gastrectomy Hx of colonoscopy S/P cataract surgery S/P trigger finger release S/P D&C (status post dilation and curettage) S/P Achilles tendon repair Hx laparoscopic cholecystectomy Hx of tubal ligation Family History Father Heart disease Mother Heart disease Hx of CABG Lung cancer Brother No problems noted. Brother No problems noted. Brother No problems noted. Brother No problems noted. Brother No problems noted. Brother No problems noted. Sister No problems noted. Sister No problems noted. Sister No problems noted. Son No problems noted. Daughter No problems noted. Social History Alcohol intake: never Patient Tobacco Use Status: Never used Tobacco Review of Systems Eyes Reports no additional complaints ENT Reports as per HPI Card Reports as per HPI Resp Reports as per HPI GI Reports as per HPI Reports as per HPI Musc Reports as per HPI Neuro Reports as per HPI Psych Reports as per HPI Endo Reports as per HPI Physical Exam Const General: cooperative, comfortable, no acute distress, well developed, alert and awake Nutritional Appearance: overweight Orientation/consciousness: patient oriented x3 Limitations: no limitations HEENT Head: Yes normal to inspection, Yes normocephalic and Yes atraumatic Ears: hearing grossly normal bilaterally Eyes General: appearance normal, both eyes and all related structures Neck Neck: Yes normal visual inspection and Yes trachea midline Chest Chest palpation & inspection: normal inspection of the chest Resp Effort & Inspection: normal respiratory effort and able to speak in complete sentences Cardio Rate: regular rate GI Inspection: Yes normal to inspection General: Yes no CVA tenderness Back/Spine/Pelvis Back: no CVA tenderness Skin General skin exam: no rashes or lesions noted Neuro General: patient oriented x3 Extrem Other: Left lower extremity with fracture boot General: Yes normal to inspection Psych Appearance: grossly normal and well kempt Mental Status: mental status grossly normal Speech and movement: Normal speech and movement present and Clear speech present Affect: normal affect Attitude: cooperative Thought process: Normal thought process present Thought content: Normal thought content present Insight: Fair insight present (Psych) Judgement: Fair judgement present (Psych) Office Procedures Post Void Residual Post Residual Void Post Void Residual (PVR): 0 27973-Vsyb Void Residual by ultrasound Results AMB Urinalysis, Automated UA Leukoctes 0 Sherif/uL Last Edit by DEJUAN Alicea on 01/05/25 13:19 UA Nitrite Negative Last Edit by DEJUAN Alicea on 01/05/25 13:19 UA Urobilinogen 0.2 mg/dL Last Edit by DEJUAN Alicea on 01/05/25 13:19 UA Protein 0 mg/dL Last Edit by Desmond Posey CCM on 01/05/25 13:19 UA pH 6.0 Last Edit by Desmond Posey CCM on 01/05/25 13:19 UA Blood 0 Marco/uL Last Edit by Desmond Posey CCM on 01/05/25 13:19 UA Specific [place] 1.015 Last Edit by DEJUAN Alicea on 01/05/25 13:19 UA Ketone Negative Last Edit by DEJUAN Alicea on 01/05/25 13:19 UA Bilirubin 0 mg/dL Last Edit by DEJUAN Alicea on 01/05/25 13:19 UA Glucose 0 mg/dL Last Edit by Desmond Posey CCM on 01/05/25 13:19 Results Reviewed Results Reviewed: Laboratory Last Values Urine pH (Auto) 6.0 01/05/25 13:18 Specific [place] (Auto) 1.015 01/05/25 13:18 Urine Protein (Auto) 0 mg/dL 01/05/25 13:18 Glucose (UA)(Auto) 0 mg/dL 01/05/25 13:18 Urine Ketones (Auto) Negative 01/05/25 13:18 Urine Blood (Auto) 0 Marco/uL 01/05/25 13:18 Urine Nitrite (Auto) Negative 01/05/25 13:18 Urine Bilirubin (Auto) 0 mg/dL 01/05/25 13:18 Urine Urobilinogen (Auto) 0.2 mg/dL 01/05/25 13:18 Leukocyte Esterase (Auto) 0 Sherif/uL 01/05/25 13:18 Date of Service: 10/29/24 Procedure(s): US retroperitoneal comp Findings: Right kidney normal size and echotexture, 10.7 cm length. Left kidney normal size and echotexture, 10.3 cm length. 1.2 cm simple appearing cyst within the mid left kidney. No hydronephrosis of either kidney. Normal color Doppler. Urinary bladder is unremarkable. Prevoid volume 190 mL. Postvoid volume 10 mL. Bilateral ureteral jets are visualized. IMPRESSION: 1. No significant abnormality. Assessment & Plan Assessment & Plan (1) Urine incontinence: Code(s): R32 - Unspecified urinary incontinence Category: Medical (2) Renal cyst: Code(s): N28.1 - Cyst of kidney, acquired Category: Medical Plan In office urinalysis results with the patient today; as noted above. PVR 0 mL. We discussed at length potential causes of urinary incontinence and further treatment options and risks and benefits of these treatment. Will resubmit referral to pelvic floor therapy as discussed. Recent retroperitoneal ultrasound results reviewed with the patient today; as noted above We discussed bladder triggers/irritants. Follow-up in 4-6 months status post completion of pelvic floor therapy; or sooner with any issues, concerns, and or questions. Orders: Orders AMB Urinalysis Automated Today Z13.9 - Encounter for screening, unspecified Patient Instructions: The patient had an opportunity to ask questions regarding the treatment plan. All questions were answered. Physical exam, labs, and imaging were discussed and reviewed in detail. As well as risks, benefits, and discussion of treatment choices. No major barriers to understanding were identified. The patient expressed understanding and agreement with the above treatment plan. The patient was made aware they should contact our office by phone for worsening of their current condition, the appearance of new symptoms, or with any questions or concerns. Compliance is encouraged with any medications and follow up testing that is ordered. It is a privilege to be allowed the opportunity to participate in? your urological care.? Again, if you have any questions or concerns If you have any questions or concerns please do not hesitate to contact me. The office is [phone]. This note is constructed using voice recognition software. While every effort has been made to ensure accuracy cadmium plater errors may have been included. Yours sincerely, KINGA Akers Coding Level of Care Code Est Pt Level 3 (87369) Complex EM visit Add On G2211 Diagnoses Urine incontinence R32 Renal cyst N28.1 CPT Codes Post Residual Void - PVR CPT Code: 76587-Zqln Void Residual by ultrasound ([id number])
--- OUTSIDE RECORDS SUMMARY | 2025-01-05 13:41 | XMS_ITS | Clinical Summary ---
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 Active fexofenadine-p seudoephedrine (MATT-D) 60-120 mg per 12 hr tablet Take 60 mg by mouth. 07/22/202 4 Active multivitamin with minerals (CENTRUM) tablet Take by mouth. 4 Active calcium carbonate-estrellita min D3 600 mg-5 mcg (200 unit) per tablet Take by mouth. 4 Active pramipexole (MIRAPEX) 0.125 mg tablet 2 Active cholecalcifero l (VITAMIN D-3) 25 mcg (1,000 unit) tablet Take 3 tablets (3,000 Units total) by mouth daily. Active sucralfate (CARAFATE) 1 gram tablet Take 1 tablet (1 g total) by mouth 4 (four) times a day. Take 1 hour before meals and at bedtime 120 each 11 5 10/25/19 26 Active acetaminophen (Tylenol 8 Hour) 650 mg 8 hr tablet Take 1 tablet (650 mg total) by mouth every 8 (eight) hours if needed for mild pain. Do not crush, chew, or split. 90 tablet 5 01/12/20 25 Active ibuprofen (ADVIL,MOTRIN) 800 mg tablet Take 1 tablet (800 mg total) by mouth 3 (three) times a day. 90 each 5 01/12/20 25 Active oxyCODONE (ROXICODONE) 5 mg immediate release tablet Take 1 tablet (5 mg total) by mouth every 6 (six) hours if needed for severe pain (For breakthrough pain) for up to 7 days. Max Daily Amount: 20 mg 28 tablet 5 12/20/19 25 HYDROmorphone (DILAUDID) 2 mg tablet Take 1 tablet (2 mg total) by mouth every 4 (four) hours if needed for severe pain for up to 5 days. Max Daily Amount: 12 mg 20 tablet 5 12/18/19 25 HYDROmorphone (Dilaudid) 2 mg tablet Take 1 tablet (2 mg total) by mouth every 4 (four) hours if needed for severe pain for up to 5 days. Max Daily Amount: 12 mg 10 tablet 5 12/31/19 25 Active Problems Problem Noted Date Diagnosed Date [...] tis 08/16/2022 Depressive disorder 08/16/2022 Polymyalgia rheumatica ([facility] V24) 08/16/2022 Localized, primary osteoarthritis of hand [...] drug reaction Overview (05/01/2024): DX:Allergic drug reaction Resolved Problems Problem Noted Date Diagnosed Date Resolved Date Rupture of tibialis anterior tendon 12/03/2024 12/12/2024 Encounters Date Type Department Care Team Description 12/26/2024 9:28 AM EDT - 12/26/2024 2:31 PM EDT Emergency [facility] Emergency [address] [place] [address] Janine Goodman MD Acute right-sided low back pain without sciatica (Primary Dx) Discharge Disposition: Home or Self Care 12/25/2024 1:00 PM EDT Office Visit Orthopedic Surgery [facility] 250 175 [facility] [address] [place] [phone] Vinny Hammond DPM Post-operative state (Primary Dx) 12/12/2024 1:43 PM EDT Anesthesia Event [facility] Main OR [address] [place] [address] Alexey Paz DO 12/12/2024 1:25 PM EDT - 12/12/2024 3:25 PM EDT Surgery [facility] Main OR [address] [place] [phone] Vinny Hammond DPM TRANSFER TENDON TIBIA [82536 (CPT )] 12/12/2024 10:41 AM EDT - 12/12/2024 6:05 PM EDT Hospital Encounter [facility] Main OR [address] [place] [phone] Vinny Hammond DPM Rupture of tibialis anterior tendon Discharge Disposition: Home or Self Care 12/11/2024 Telephone Orthopedic Surgery [facility] 175 [facility] [address] [place] [phone] Mavis Waite 12/08/2024 1:12 PM EDT - 12/08/2024 11:59 PM EDT Hospital Encounter [facility] MRI [address] [place] [address] Rupture of tibialis anterior tendon Discharge Disposition: Home or Self Care 12/03/2024 3:00 PM EDT Office Visit Orthopedic [facility] [address] [phone] Vinny Hammond DPM Capsulitis of left foot (Primary Dx); Nondisplaced fracture of first metatarsal bone, left foot, initial encounter for closed fracture; Rupture of tibialis anterior tendon 11/18/2024 Telephone Orthopedic Surgery [facility] [address] [phone] Vinny Hammond DPM 11/17/2024 1:50 PM EDT - 11/17/2024 11:59 PM EDT Hospital Encounter [facility] MRI [address] [place] [address] Pain Discharge Disposition: Home or Self Care 11/14/2024 10:45 AM EDT Office Visit Orthopedic Surgery [facility] [address] [phone] Vinny Hammond DPM Arthritis of both feet (Primary Dx); Capsulitis of left foot; Strain of left tibialis anterior muscle, initial encounter 10/30/2024 Telephone Gastroenterology - [address] [phone] Olesya Yanez [place] Results 10/24/2024 10:00 AM EDT Office Visit Gastroenterology - [address] [phone] Manfred Winters MD Iron deficiency (Primary Dx); AVM (arteriovenous malformation) of colon; Gastroesophageal reflux disease without esophagitis; Iron deficiency anemia due to chronic blood loss from Last 3 Months Surgical History Surgery Date Site/Laterality Comments OTHER SURGICAL HISTORY PROCEDURE: HISTORY OTHER; COMMENT: Gastric sleeve CHOLECYSTECTOMY PROCEDURE: HISTORICAL CHOLECYSTECTOMY TENDON TRANSFER 06/18/2011 - 06/17/2012 Right TUBAL LIGATION 06/18/1977 - 06/17/1978 CATARACT EXTRACTION, BILATERAL CARPAL TUNNEL RELEASE Bilateral Medical History Medical History Date Comments Family [...] Piriformis syndrome DX:Piriformi s syndrome Obesity DX:Obesity Sleep apnea, obstructive Osteoarthritis of both hands Neuralgia of lower extremity leslee ateral thighs Family History Medical History Relation Name Comments [...] pur e alcohol) 1 -2 a year Interpersonal Safety Answer Date Record ed Physical Abuse 12/12/2024 Verbal Abuse 12/12/2024 Comments No Sex and Gender Information Value Date Recorded Sex Assigned at Not on file Legal Sex Female 7:01 AM EST Gender Identity Not on file Sexual Orientation Not on file Obstetrics History Last Filed Vital Signs Vital Sign Reading Time Taken Comments Blood Pressure 110/64 12/26/2024 9:36 AM EDT Pulse 85 12/26/2024 9:36 AM EDT Temperature 36.2 C (97.1 F) 12/26/2024 9:36 AM EDT Respiratory Rate 20 12/26/2024 9:36 AM EDT Oxygen Saturation 96% 12/26/2024 9:36 AM EDT Inhaled Oxygen Concentration - - Weight 95.3 kg (210 lb) 12/26/2024 9:45 AM EDT Height 137.2 cm (4' 6 ) 12/26/2024 9:45 AM EDT Body Mass Index 50.63 12/26/2024 9:45 AM EDT Plan of Treatment Upcoming Encounters Date Type Department Care Team (Late st Contact Info) Description 01/13/2025 1:00 PM EDT Office Visit Orthopedic Surgery - [place] 250 175 [facility] [address] [place] [address] [place] [phone] Vinny Hammond, DPM 175 [facility] 250 [place] [address] Health Maintenance Due Date Last Done Comments Breast Cancer Screening 1950 DTaP,Tdap,and Td Vaccines (1 - Tdap) 12/25/1971 RSV Immunization Adult Patients (1 - Risk 60-74 years 1-dose series) 2012 Colorectal Cancer Screening: Colonoscopy 05/21/2022 Falls Risk Assessment 05/21/2022 Hepatitis C Screening 05/21/2022 Medicare Annual Wellness Visit 05/21/2022 Social Influencers of Health Screening 05/21/2022 Pneumococcal Vaccine: 50+ Years (2 of 2 - PPSV23) 11/16/2022 11/16/2021 Zoster Vaccines (2 of 2) 12/25/2022 10/30/2022 COVID-19 Vaccine ( season) 2024 06/13/2022, 03/31/2021, 09/28/2020, Additional history exists Depression Screening 06/18/2024 Influenza Vaccine (#1) 2025 , 03/26/2023, 05/26/2022, Additional history exists Hypertension/CHF/CAD Annual BMP Blood Test 04/01/2025 04/01/2024 Cholesterol Screening (Lipid Panel) 04/01/2029 04/01/2024 Osteoporosis Screening (Bone Density Screening) 05/23/2032 05/23/2022, 03/10/2019 HIB Vaccines Aged Out No longer eligi [...] age to complete this topic Medical Devices Implanted Type Area Spud Driller Device Identifier Shelf Expiration Date Model / Serial / Lot [place] Sut Healicoil 4.75mm - Sn/A - [id number] Implanted:Qty: 1 on 12/12/2024 by Vinny Hammond DPM at [facility] [employer] Implants Sports Med Left: Leg [employer] - ENDOSCOPY 05/16/2026 [id number] / N/A / [id number] Tendon Ant Tib 220-300mm X 9-12mm - [id number] - [id number] Implanted:Qty: 1 on 12/12/2024 by Vinny Hammond DPM at [facility] [employer] Tendons Left: Leg [employer] 11/13/2027 [id number] / [id number] / [id number] Implant Bioinductive W/Arth Del Med - Sn/A - [id number] Implanted:Qty: 1 on 12/12/2024 by Vinny Hammond DPM at [facility] [employer] Left: Leg [employer]HEW - ENDOSCOPY 08/09/2027 [id number] / N/A / [id number] Ultrabrace Kit Implanted:Qty: 1 on 12/12/2024 by Vinny Hammond DPM at [facility] Left: Leg [employer] 08/30/2027 [id number] / N/A / [id number] Procedures Procedure Name Priority Date/Time Associated Diagnosis Comments URRUTIA URINE CULTURE TUBE STAT 12/26/2024 10:33 AM EDT URINALYSIS WITH REFLEX MICROSCOPIC AND CULTURE STAT 12/26/2024 10:33 AM EDT URINALYSIS WITH REFLEX MICROSCOPIC AND CULTURE STAT 12/26/2024 10:33 AM EDT CULTURE URINE STAT 12/26/2024 10:33 AM EDT XR FOOT 2 VIEWS LEFT Routine 12/12/2024 4:29 PM EDT TISSUE EXAM Routine 12/12/2024 2:26 PM EDT Rupture of tibialis anterior tendon AL TRANSFER OR TRANSPLANT OF SINGLE TENDON SUPERFICIAL 12/12/2024 1:43 PM EDT Rupture of tibialis anterior tendon Case Notes 12/11-patient spoke with provider and she is on standby with [facility] to be called in. MR FOOT WO CONTRAST LEFT Routine 12/08/2024 2:35 PM EDT Rupture of tibialis anterior tendon MR FOOT WO CONTRAST LEFT Routine 11/17/2024 3:02 PM EDT Pain IMMUNOGLOBULIN IGA Routine 10/24/2024 11:02 AM EDT Iron deficiency TISSUE TRANSGLUTAMINASE, IGA Routine 10/24/2024 11:02 AM EDT Iron deficiency KIZZY DEXA AXIAL SKELETON Routine 05/23/2022 4:52 PM EST Encounter for screening for osteoporosis from Last 3 Months or Most Recently Relevant to Health Maintenance Results * (ABNORMAL) Urinalysis with reflex microscopic and culture (12/26/2024 10:33 AM EDT) Pathologist [facility] Specific [place] Urine 1.020 1.003 - 1.030 LAB URINALYSIS - AUTOMATED METHOD 12/26/2024 11:51 AM EDT [facility] pH, Urine 7.5 5.0 - 8.0 pH LAB URINALYSIS - AUTOMATED METHOD 12/26/2024 11:51 AM T [facility] Leukocytes, Urine Trace(A) Negative LAB URINALYSIS - AUTOMATED METHOD 12/26/2024 11:51 AM [facility] Nitrite, Urine Negative Negative LAB URINALYSIS - AUTOMATED METHOD 12/26/2024 11:51 AM T [facility] Protein, Urine Negative <=Trace mg/dL LAB URINALYSIS - AUTOMATED METHOD 12/26/2024 11:51 AM [facility] Glucose, Urine Negative Negative mg/dL LAB URINALYSIS - AUTOMATED METHOD 12/26/2024 11:51 AM [facility] Ketones, Urine Negative Negative mg/dL LAB URINALYSIS - AUTOMATED METHOD 12/26/2024 11:51 AM [facility] Urobilinogen, Urine 1.0 0.2 - 1.0 mg/dL LAB URINALYSIS - AUTOMATED METHOD 12/26/2024 11:51 AM [facility] Bilirubin, Urine Negative Negative LAB URINALYSIS - AUTOMATED METHOD 12/26/2024 11:51 AM [facility] Blood, Urine Negative Negative LAB URINALYSIS - AUTOMATED METHOD 12/26/2024 11:51 AM [facility] RBC, Urine 4.5(H) 0 - 4 /HPF LAB URINALYSIS - AUTOMATED METHOD 12/26/2024 11:51 AM [facility] WBC, Urine 1.6 0 - 4 /HPF LAB URINALYSIS - AUTOMATED METHOD 12/26/2024 11:51 AM [facility] Squamous Epithelial, Urine 41 0 - 60 /LPF LAB URINALYSIS - AUTOMATED METHOD 12/26/2024 11:51 AM [facility] Bacteria, Urine Negative Negative /HPF LAB URINALYSIS - AUTOMATED METHOD 12/26/2024 11:51 AM [facility] Hyaline Casts, Urine 0.4 0 - 3 /LPF LAB URINALYSIS - AUTOMATED METHOD 12/26/2024 11:51 AM [facility] Urine Urine specimen obtained by clean catch procedure / Unknown Non-blood Collection / Unknown 12/26/2024 10:33 AM EDT 12/26/2024 11:38 AM EDT us Janine Goodman MD LAB URINE ORDERABLES Final Resul t Performing Organization Address City/[facility]/ZIP Co de Phone Number [facility] [address] [place] [address], [place] [phone] * Urrutia urine culture tube (12/26/2024 10:33 AM EDT) Extra Tube Hold for add-ons. 12/26/2024 1:02 PM EDT [facility] Comment:Auto resulted. Urine Urine specimen obtained by clean catch procedure / Unknown Non-blood Collection / Unknown 12/26/2024 10:33 AM EDT 12/26/2024 11:38 AM EDT us Janine Goodman MD LAB URINE ORDERABLES Final Resul t Performing Organization Address [facility]/ZIP Co de Phone Number [facility] [address] [place] [address], [place] [phone] * Culture urine (12/26/2024 10:33 AM EDT) Culture, Urine 50,000-99,000 CFU/mL Mixed bacterial morphotypes present suggestive of possible contamination during collection. Suggest appropriate recollection if clinically indicated. 12/27/2024 10:06 AM EDT [facility] Urine Urine specimen obtained by clean catch procedure / Unknown Non-blood Collection / Unknown 12/26/2024 10:33 AM EDT 12/26/2024 11:51 AM EDT us Janine Goodman MD LAB MICROBIOLOGY - GENERAL ORDER SIMONE Final Result Performing Organization Address City/[facility]/ZIP Co de Phone Number [facility] [address] [place] [address], [place] [phone] * XR Foot 2 Views Left (12/12/2024 4:29 PM EDT) Anatomical Region Laterality Modality Lower Extremities, Foot Left Radiogra phic Imaging 12/12/2024 5:12 PM EDT Impressions 12/12/2024 5:15 PM EDT FINDINGS/IMPRESSION: Anatomic alignment. Postoperative changes at the medial cuneiform. No acute displaced fractures. Splint in place. -------- FINAL REPORT -------- Dictated By: WESLY CALIXTO Dictated Date: 12/12/2024 17:12 ET Assigned Physician: WESLY CALIXTO Reviewed and Electronically Signed By: WESLY CALIXTO Signed Date: 12/12/2024 17:15 ET Workstation ID: [id number] Transcribed By: Self Edit Transcribed Date: 12/12/2024 17:13 ET Narrative 12/12/2024 5:15 PM EDT XR FOOT 2 VIEWS LEFT INDICATION: Pain, surgery TECHNIQUE: XR FOOT 2 VIEWS LEFT COMPARISON: No priors available. Procedure Note Wesly Calixto MD - 12/12/2024 XR FOOT 2 VIEWS LEFT INDICATION: Pain, surgery TECHNIQUE: XR FOOT 2 VIEWS LEFT COMPARISON: No priors available. IMPRESSION: FINDINGS/IMPRESSION: Anatomic alignment. Postoperative changes at themedial cuneiform. No acute displaced fractures. Splint in place. -------- FINAL REPORT -------- Dictated By: WESLY CALIXTO Dictated Date: 12/12/2024 17:12 ET Assigned Physician: WESLY CALIXTO Reviewed and Electronically Signed By: WESLY CALIXTO Signed Date: 12/12/2024 17:15 ET Workstation ID: [id number] Transcribed By: Self Edit Transcribed Date: 12/12/2024 17:13 ET us Vinny Hammond DPM IMG XR PROCEDURES Final Res ult * Tissue exam (12/12/2024 2:26 PM EDT) Final Diagnosis Left, Tibalis tendon: -FIBROTENDINOUS TISSUE WITH DEGENERATIVE CHANGES, CONSISTENT WITH RUPTURE 12/17/2024 9:46 AM EDT [facility]) [facility] Gross Description A. Leg, Left, Tibalis tendon rupture: Labeled tibia L, tibialis . Received in formalin is a 4.2 x 1.8 x 1 cm disrupted white-urrutia fibrous tissue fragment, consistent with a segment of tendon. The cut surfaces are white-urrutia to dark brown. Factory Expert sections are submitted in one cassette, two pieces. MIKAELA 12/17/2024 9:46 AM EDT [facility] Disclaimer Unless otherwise specified, all tissue is 10% NB formalin fixed and paraffin embedded. 12/17/2024 9:46 AM EDT [facility] Tissue Structure of left lower limb / Unknown 12/12/2024 2:26 PM EDT 12/15/2024 7:24 AM EDT us Vinny Hammond DPM LAB PATHOLOGY ORDERABLES Fi nal Result [facility] [address] [place] [address], * MR Foot wo Contrast Left (12/08/2024 2:35 PM EDT) Only the most recent of2 resultswithin the time period is included. Anatomical Region Laterality Modality Lower Extremities, Foot Left Magnetic Resonance 12/10/2024 8:46 AM EDT Impressions 12/10/2024 8:55 AM EDT Full-thickness tear of the tibialis anterior tendon. -------- FINAL REPORT -------- Dictated By: Giovanni Davis Dictated Date: 12/10/2024 08:46 ET Assigned Physician: Giovanni Davis Reviewed and Electronically Signed By: Giovanni Davis Signed Date: 12/10/2024 08:55 ET Workstation ID: [id number] Transcribed By: Self Edit Transcribed Date: 12/10/2024 08:46 ET Narrative 12/10/2024 8:55 AM EDT PROCEDURE: MRI of the left hindfoot without intravenous contrast. HISTORY: Rupture of tibialis anterior left foot. New injury since previous MRI. COMPARISON: 11/17/2024. TECHNIQUE: Multiplanar multisequence MRI of the left hindfoot without intravenous contrast administration. FINDINGS: This study is limited by patient motion. There is persistent edema along the plantar aspect of the base of the 1st metatarsal and the adjacent medial cuneiform which appears similar to the previous exam. Small plantar calcaneal spur. Mild degenerative changes of the posterior subtalar joint and throughout the midfoot. Bilobed subchondral cyst in the distal fibula. Mild cartilage irregularity with a small subchondral cyst in the anterior tibial plafond. No soft tissue mass or fluid collection. Visualized portions of the peroneal tendons are normal. The medial flexor tendons are normal. Thickening and mildly increased signal in the posterior central band of the plantar fascia suggestive of mild fasciitis. There is a complete tear of the tibialis anterior tendon. The other extensor tendons appear intact. Normal appearance of the Achilles tendon. Procedure Note Giovanni Davis MD - 12/10/2024 PROCEDURE: MRI of the left hindfoot without intravenous contrast. HISTORY: Rupture of tibialis anterior left foot. New injury sinceprevious MRI. COMPARISON: 11/17/2024. TECHNIQUE: Multiplanar multisequence MRI of the left hindfoot withoutintravenous contrast administration. FINDINGS: This study is limited by patient motion. There is persistent edema along the plantar aspect of the base of the 1stmetatarsal and the adjacent medial cuneiform which appears similar to theprevious exam. Small plantar calcaneal spur. Mild degenerative changesof the posterior subtalar joint and throughout the midfoot. Bilobedsubchondral cyst in the distal fibula. Mild cartilage irregularity with asmall subchondral cyst in the anterior tibial plafond. No soft tissue mass or fluid collection. Visualized portions of the peroneal tendons are normal. The medial flexortendons are normal. Thickening and mildly increased signal in the posterior central band ofthe plantar fascia suggestive of mild fasciitis. There is a complete tear of the tibialis anterior tendon. The otherextensor tendons appear intact. Normal appearance of the Achilles tendon. IMPRESSION: Full-thickness tear of the tibialis anterior tendon. -------- FINAL REPORT -------- Dictated By: Giovanni Davis Dictated Date: 12/10/2024 08:46 ET Assigned Physician: Giovanni Davis Reviewed and Electronically Signed By: Giovanni Davis Signed Date: 12/10/2024 08:55 ET Workstation ID: [id number] Transcribed By: Self Edit Transcribed Date: 12/10/2024 08:46 ET Vinny Hammond DPM IMG MRI PROCEDURES Final Re sult * Tissue transglutaminase, IgA (10/24/2024 11:02 AM EDT) Pathologist [facility] Tissue Transglutaminase Ab, IgA Quant 1 <4 unit/mL LAB CHEMISTRY METHOD 10/29/2024 11:47 AM EDT [facility] Tissue Transglutaminase Ab, IgA Negative Negative LAB CHEMISTRY METHOD 10/29/2024 11:47 AM EDT [facility] Blood Venous blood specimen / Unknown Venipuncture / Unknown 10/24/2024 11:02 AM EDT 10/24/2024 11:38 AM EDT Manfred Winters MD LAB BLOOD ORDERABLES Final Resu lt Performing Organization Address City/[facility]/ZIP Co de Phone Number [facility] [address] [place] [address], [place] [phone] * Immunoglobulin IgA (10/24/2024 11:02 AM EDT) Pathologist [facility] IgA 305 61 - 348 mg/dL LAB CHEMISTRY METHOD 10/24/2024 1:12 PM EDT [facility] Blood Venous blood specimen / Unknown Venipuncture / Unknown 10/24/2024 11:02 AM EDT 10/24/2024 11:38 AM EDT us Manfred Winters MD LAB BLOOD ORDERABLES Final Resu lt [facility] [address] [place] [address], [place] [phone] * KIZZY DEXA AXIAL SKELETON (05/23/2022 4:52 PM EST) Anatomical Region Laterality Modality Mammography 05/23/2022 2:01 PM EST Narrative 05/23/2022 4:52 PM EST [facility] Diagnostic Imaging Department [address] [place] [address] Patient: EMMANUELMOHSENNERY Carol Márquez./Age/Sex: 1950 - 71 - F Unit#: [id number] Location/Status: SPDIMA/REG CLI [facility] Ordering Physician: JOSE YEPEZ MD Kizzy Dexa Axial Skeleton - 05/23/22 - 0990 History: Low estrogen state due to menopause. Rheumatoid arthritis. Polymyalgia. Chronic glucocorticoid use. Comparison: 03/10/19 Findings: Bone densitometry is performed utilizing dual energy x-ray absorptiometry (DXA) in the TwtBks unit. The lumbar spine and proximal femora are evaluated in the AP projection. The FRAX questionaire was completed. The results indicate osteoporosis, with a right femoral neck T-score of -2.6. The Z score is -1.4, indicating low bone mineral density for age. There has been no statistically significant change. The detailed DEXA report will be mailed to the referring physician's office. DualFemur FRAX: 10-year Probability of Fracture: Major Osteoporotic 27.9 percent Hip 8.9 percent. IMPRESSION: Osteoporosis. [id number] Dictating Physician: DONNA BELTRAN MD Electronically Signed by: DONNA BELTRAN MD Dic Date/Time: 05/23/221650 Sign date/Time: 05/23/221651 Procedure Note Donna Beltran MD - 07/20/2023 [facility] Diagnostic Imaging Department [address] [place] [address] Patient: NERY MARTINEZ Carol Song/Age/Sex: 1950 - 71 - F Unit#: [id number] Location/Status: [facility] Mnemonic/Ordering Site: [facility] Ordering Physician: JOSE YEPEZ MD [facility] Dexa Axial Skeleton - 05/23/22 - 1436 History: Low estrogen state due to menopause. Rheumatoid arthritis.Polymyalgia. Chronic glucocorticoid use. Comparison: 03/10/19 Findings: Bone densitometry is performed utilizing dual energy x-ray absorptiometry(DXA) in the [employer] unit. The lumbar spine and proximal femora [...] 27.9 percent Hip 8.9 percent. IMPRESSION: Osteoporosis. [id number] Dictating Physician: DONNA BELTRAN MD Electronically Signed by: DONNA BELTRAN MD Dic Date/Time: 05/23/221650 Sign date/Time: 05/23/221651 Jose Yepez MD IMG BI PROCEDURES Final Resu lt from Last 3 Months or Most Recently Relevant to Health Maintenance Insurance MEDICARE [place]ICA[place] - [place] Advance Directives * Full Code - Default (Latest Code Status on File) Date Activated Date Inactivated Comments 12/12/2024 11:14 AM 12/12/2024 8:50 PM This is ord er is used when code status has not been discussed with the patient, or code status is otherwise unknown/unconfirmed To update the patient's code status, place a code status order. Do not modify or discontinue any currently active code status orders. Care Teams Automatic Grinding Machine Operator Relationship Specialty Start Date End Date Jose Yepez MD [address] [place] [id number] PCP - General Internal Medicine 09/18/17
--- OUTSIDE RECORDS SUMMARY | 2025-01-05 13:41 | XMS_ITS | Clinical Summary ---
Author Organization [facility] Address [address] [facility] [address] [place] [address] Phone Care Team Providers Care Sales Marketing Coordinator Name Role Phone Jose Quintero MD Primary Care Provider + [phone] Allergies Active Allergy Reactions Criticality Noted Date [...] Active ferrous sulfate 325 mg (65 mg me[place] iron) tablet Take 325 mg by mouth [...] out at fast food places such as [employer]. Patient should avoid eating after 8 PM. [...] 73 05/13/2024 1:00 PM EST Temperature 36.4 C (97.5 F) 05/13/2024 1:00 PM EST Respiratory Rate - - Oxygen Saturation 99% [...] age to complete this topic MENINGOCOCCAL VACCINES (B) Aged Out N o longer eligible based on patient's age to complete this topic Medical Devices Not on file Procedures Procedure Name Priority Date/Time Associated Diagnosis Comments LIPID PANEL Routine 04/01/2024 2:35 PM EDT Intestinal malabsorption following gastrectomy from Last 3 Months or Most Recently Relevant to Health Maintenance Results * (ABNORMAL) Lipid panel (04/01/2024 2:35 PM EDT) HDL 65 mg/dL [facility] Comment: Interpretation <40 mg/dL: Low HDL cholesterol (major risk factor for CHD) Greater than or equal to 60 mg/dL: High HDL cholesterol ( negative risk factor for CHD) HDL - cholesterol is affected by a number of factors, e.g. smoking, excerise, hormones, sex and age. CHOLESTEROL 190 0 - 240 mg/dL [facility] TRIGLYCERIDES 292(H) 30 - 160 mg/dL [facility] LDL 67 50 - 129 mg/dL [facility] Comment: LDL levels in terms of risk for coronary heart disease: <100 mg/dL: Optimal 100-129 mg/dL: Near or above optimal 130-159 mg/dL: Borderline high 160-189 mg/dL: High >190 mg/dL: Very High CARDIAC RISK RATIO 2.9(L) 3.3 - 4.4 [facility] Blood 04/01/2024 2:35 PM EDT 04/01/2024 2:45 PM EDT us Serena Sinha MD LAB BLOOD ORDERABLES Final Result [facility] [address] [place] [address] from Last 3 Months or Most Recently Relevant to Health Maintenance Insurance [place]IC[place] PART A [place] B Member Subscriber Plan / Payer ( fective 2016-Present) Name:Frances Martinezyl Member ID:[id number] Relation to Subscriber:Self Name:Frances Martinezyl Subscriber ID:[id number] Payer ID:[id number] Group ID:Not on file Type:Medicare Address: [employer] [address] A & B [place] Care Teams Sales Marketing Coordinator Relationship Specialty Start Date End Date Jose Quintero MD [address] [place] [id number] PCP - General Internal Medicine 01/03/22 Additional Source Comments The information contained in this document represents components of the legal health record. It is not the complete legal health record.[facility]
--- OUTSIDE RECORDS SUMMARY | 2025-01-05 13:41 | XMS_ITS | Continuity of Care Document ---
Author Organization [facility] [address] [place] [address] Phone [phone] Care Team Providers Care Picu Nurse Name Role Phone Jose Quintero M.D. 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 08/11/2024 Multivitamin Adults 50+Adlt 50+ Tablets 1 by mouth every day Kristy Szymanski M.D. 02/24/2024 Calcium 600 + [id number] Tablets 1 by mouth every day Kristy Szymanski M.D. 02/24/2024 Escitalopram Ydfpchr19ac Tablets Take 1 & 1/2 Tablets By Mouth Daily Jose Quintero M.D. Pramipexole Dihydrochloride0.125m g Tablets Take 2 Tablets By Mouth AT Bedtime Unknown Gkxakhjgq236mg Capsules Take One Capsule By Mouth Twice A Day leonardn Naveen Watkins, Zckrqpwckr45eu Tablets Take 1 Tablet By Mouth Twice Weekly Jose Quintero M.D. Diclofenac Sodium1% Gel Apply 4 Times A Day as Needed For Pain Unknown Oiosovh9gf/100ML Solution 06/2019, 10/2020, 08/2022 Kristy Szymanski M.D. Yetweq60qt Capsules DR 1 every day as needed Unknown Steph Rgmvwff862ih Tablets 1 by mouth every day Unknown [...] Hydroxy Esoterix <pending> Basic Metabolic Panel 08/18/2022 [facility] Glucose 94 mg/dL (70-99) BUN 19 mg/dL (8-23) Creatinine 0.5 mg/dL (0.5-1.0) Sodium 141 mmol/L (133-145) Potassium 4.1 mmol/L (3.6-5.2) Chloride 104 mmol/L (98-107) Bicarbonate 30 mmol/L High (22-29) Anion Gap 7 (4-17) Calcium 9.8 mg/dL (8.6-10.5 ) Estimated GFR Creatinine 100 ML/MIN/1.7 3M2 3 25Oh Vitamin D 08/18/2022 [facility] 25Oh Vitamin D 23.4 NG/ML (20-50) TSH With Reflex To FT4 08/18/2022 [facility] TSH With Reflex To FT4 1.17 uIU/mL (0.4-4.2) Albumin 08/18/2022 [facility] Albumin 4.2 GM/DL (3.4-4.8) 1 Vitamin D deficiency has been defined by the [place] of [employer] and an Endocrine Society practice guideline as a level of serum 25-OH vitamin D less than 20 ng/mL (1,2). The Endocrine Society went on to further define vitamin D insufficiency as a level between 21 and 29 ng/mL (2). 1. IOM ([place] of [employer]). 2010. Dietary reference intakes for [...] sex. Procedures Date Code Description Status 08/11/2024 35122 Collection Of Venous Blood B y Venipuncture Completed 02/21/2023 NSHOWOFF No Show Office Visit Complet ed 08/18/2022 64400 Collection Of Venous Blood B y Venipuncture [...]
--- OUTSIDE RECORDS SUMMARY | 2025-01-05 13:41 | XMS_ITS | Patient Health Record ---
Author Organization [facility] Address [address] [place] [address] Care Team Providers Care Director Market Intelligence Name Role Phone Jose Quintero MD Primary Care Provider Unavail able Calli Martínez Unavailable [phone] Allergies Allergen (clinical drug ingredient) Drug/Non Drug Allergy documented on EMR Reaction Allergy Type Onset Date Status metaxalone skelazin (uncoded) hives, itching Allergy Active meperidine Demerol vomiting Drug Allergy Active Reason For Referral No Information Medications Medication SIG (Take, Route, Frequency, Duration) Notes Start Date End Date Status Pramipexole Dihydrochloride 0.125 MG 1 tablet Orally Once a day; Duration: 30 day(s) Active Amoxicillin-Pot Clavulanate Not-Taking Meloxicam 15 MG 1 tablet Orally Once a day; Duration: 30 day(s) Active Gabapentin 100 MG 1 capsule Orally as needed Pt takes 200 MG Active Prednisone 2.5 mg 1 tab Oral once a day Not-Taking Estradiol Vaginal Cream 0.01% 1 Gram Vaginally Twice a week; Duration: 90 days 01/28/2020 Not-Taking Prevacid 30 MG 1 capsule Orally Once a day Active Macrobid 100 MG 1 capsule with food Orally every 12 hrs; Duration: 5 days 08/02/2021 Active miSOPROStol 200 MCG as directed Orally 8-12 hrs prior to appointment; Duration: 1 days 07/28/2021 Active Lexapro 20 MG 1 tablet Orally Once a day 1 20mg and 1/2 of 20mg to make 30 Mg Active Valtrex 1 GM 1 tablet Orally twice a day; Duration: 10 day(s) 10/03/2017 Not-Taking Furosemide 20 MG 1 tablet Orally Once a day Active valACYclovir HCl 500 MG 1 tablet Orally every 12 hrs at earliest sign of outbreak; Duration: 3 days 10/09/2017 Not-Taking Valtrex 500 MG 1 tablet Orally Q 12 hr; Duration: 3 days 02/27/2020 Active Bactrim DS 800-160 MG 1 tablet Orally Twice a day; Duration: 3 days 08/01/2021 Active rOPINIRole HCl 0.5 [...] Status Risk Notes Problem Postmenopausal atrophic vaginitis (60070534) Postmenopausal atrophic vaginitis (N95.2) Active confirmed Problem Mixed incontinence (241367115) Mixed incontinence (N39.46) Active confirmed Problem Essential hypertension (81965896) Essential (primary) hypertension (I10) Active confirmed Problem Major depression, single episode (83962176) Major depressive disorder, single episode, unspecified (F32.9) Active confirmed Problem Herpetic vulvovaginitis (43670334) 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) Active confirmed Problem Obesity (723379727) Obesity, unspecified (E66.9) Active confirmed Problem Restless legs syndrome (84665576) Restless legs syndrome (G25.81) Active confirmed Problem Insomnia (464190160) Insomnia, unspecified (G47.00) Active confirmed Problem Sleep apnea (22050030) Sleep apnea, unspecified (G47.30) Active confirmed Problem Gastric ulcer (778193381) Gastric ulcer, unspecified as acute or chronic, without hemorrhage or perforation (K25.9) Active confirmed Problem Osteoarthritis (422143526) Unspecified osteoarthritis, unspecified site (M19.90) Active confirmed Problem Fibromyalgia (169763441) Fibromyalgia (M79.7) Active confirmed Problem Abnormal uterine bleeding (94372204148969) Abnormal uterine and vaginal bleeding, unspecified (N93.9) Active confirmed Plan Of Treatment Pending Test Test Name Order Date Sonohysterogram 07/28/2021 Urinalysis 07/28/2021 Urinalysis 02/27/2020 Ultrasound : Pelvic 11/28/2016 ONE SWAB 12/10/2019 ONE SWAB 10/03/2017 THIN PREP,HPV,BOZENA IF HPV+ (>29YR)(SCRN) 11/28/2016 MM Digital Mammo Screening 01/02/2018 Insurance Providers Payer Name Payer Address Payer Phone Subscriber Number Group Number Insured Name Patient Relationship to Insured Coverage Start Date Coverage End Date MEDICARE [address] [place]ILL [place] [id number] SODERSTR OM, VICKI Self - patient is the insured Medical [...]
--- OUTSIDE RECORDS SUMMARY | 2025-01-05 13:41 | XMS_ITS | Data Portability ---
Author Organization [place] [facility] Address [address] [facility] [facility] [address] [place] [address] Care Team Providers Care Clean In Places Operator Name Role Phone CAROLA YEPEZ Primary Care Provider [phone] Assessment Encounter Date Assessment Date Assessment LastModified [...] recorded. Medication Orders famotidine 20 mg tablet 07/2023 [place] [facility] [id number] [place], [address], 4 13:40:03 famotidine 20 mg tablet 2023 [place] [facility] [id number] [place], [address], 4 11:43:18 Patient TargetsNo targets recorded. Patient InstructionsNo instructions recorded. Reason for Referral None Reported. 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; Note: Date Diagnosed : 02/19/2015 4:48 PM (478.5) Not Available [facility] 4 02:56:20 Benign paroxysma l positiona l vertigo 023412089 Active 2016 Benign paroxysma l vertigo, right ear; Note: Date Diagnosed : 07/26/2016 3:00 PM (H81.11) Not Available [facility] 4 02:56:22 Candidal otitis externa 96162164 Active 2016 Candidal otitis externa; Note: Date Diagnosed : 07/26/2016 3:02 PM (B37.84) Not Available [facility] 4 02:56:22 Acute sialoaden itis 727484327 Active 2016 Acute sialoaden itis; Note: Date Diagnosed : 11/14/2016 4:37 PM (K11.21) Not Available [facility] 4 02:56:21 Acute serous otitis media of left ear 91603679002 36756 Active 2016 Acute serous otitis media, left ear; Note: Date Diagnosed : 11/14/2016 4:37 PM (H65.02) Not Available [facility] 4 02:56:20 Obstructi ve sleep apnea syndrome 90061937 Active 2016 Obstructi ve sleep apnea (adult) (pediatri c); Note: Date Diagnosed : 03/07/2017 10:47 AM (G47.33) Not Available [facility] 4 02:56:22 Atypical facial pain 29343432 Active 2016 Atypical facial pain; Note: Date Diagnosed : 03/07/2017 10:47 AM (G50.1) Not Available [facility] 4 02:56:20 Refractor y migraine 204237784 Active 2016 Other migraine, intractab le, without status migrainos us; Note: Date Diagnosed : 03/07/2017 10:46 AM (G43.819) Not Available [facility] 4 02:56:23 Dizziness and giddiness 316289832 Active 2016 Dizziness and giddiness ; Note: Date Diagnosed : 03/07/2017 10:46 AM (R42) Not Available [facility] 4 02:56:20 Allergic rhinitis 29702352 Active 2016 Other allergic rhinitis; Note: Date Diagnosed : 03/07/2017 10:49 AM (J30.89) Note: Date Diagnosed : 03/07/2017 10:49 AM (J30.89) Not Available [facility] 4 01:15:03 Otorrhea of right ear 42569016150 40449 Active 2016 Otorrhea, right ear; Note: Date Diagnosed : 04/19/2017 2:28 PM (H92.11) Not Available [facility] 4 02:56:19 Diffuse otitis externa 43656164 Active 2016 Diffuse otitis externa, right ear; Note: Date Diagnosed : 04/19/2017 2:31 PM (H60.311) Diffuse otitis externa, left ear; Note: Date Diagnosed : 11/14/2016 4:44 PM (H60.312) ; Start Date : 7 Not Available [facility] 4 02:56:21 Sensorine ural hearing loss of bilateral ears 821547822 Active 2017 Sensorine ural hearing loss, bilateral ; Note: Date Diagnosed : 12/17/2017 3:37 PM (H90.3) Not Available [facility] 4 02:56:23 Cough 00465752 Active 2018 Cough; Note: Date Diagnosed : 06/25/2018 3:22 PM (R05) Not Available [facility] 4 02:56:22 Gastroeso phageal reflux disease without esophagit is 789121381 Active 2023 Ade martinez [place] - [facility] 4 11:42:41 Chronic hoarsenes s 30545811407 Active 2023 Ade martinez [place] [facility] 12:03:51 Problem Notes None recorded. Procedures Surgical History Date Name Laterality Status Provider Name and Address Organization Details Recorded Time 11/21/19 24 Fiberoptic Laryngoscopy (Comprehensive) completed Ade Johnson [place] - [facility] 11/21/2023 12:03:39 02/17/20 02 procedure on gallbladder completed Manisha Nam [facility] 11/21/2023 11:37:34 11/17/19 00 laparoscopic sleeve gastrectomy completed Manisha Nam [place] [facility] 11/21/2023 11:37:59 Imaging Results None recorded. Procedure Notes None recorded. Medical Equipment None Reported. Allergies Allergen ID Allergen Name Allergen Category Reaction Reaction Severity Criticality Documentation Date Start Date Code Code System Note Provider Name and Address Organization Details Recorded Time 610733 meperidin e hydrochlo ride medicatio n other Not available Not available 10/30/2023 58409 5 RxNorm React ion: unkno wn, unspe cifie d;; Not Available [facility] 4 01:25:00 014975 Demerol medicatio n Not available Not available Not available 11/21/2023 77332 1 RxNorm Manisha Cyril martinez [place] - [facility] 4 11:31:28 165342 morphine medicatio n Not available Not available Not available 11/21/2023 7052 RxNorm Manisha martinez [place] [facility] 11:31:41 Medications Name Sig Start Date Stop Date Status Note LastModified by Organization Details LastModified Time celecoxib 200 mg capsule TAKE ONE CAPSULE BY MOUTH EVERY DAY NEEDED FOR PAIN active Not Available Not Available No t Available neomycin- polymyxin -hydrocor t 3.5 mg/mL-10, 000 unit/mL-1 % ear solution 2016 active Medicati on ID: [id number] D uration Value: 10 Brand Name: neomycin -polymyx in-HC Se nd Method: E-Prescr ibed Sub s Allowed: subs OK Jo-Anni al Instruct ion: INSTILL 4 DROPS FOUR [...] mg tablet 11/20 completed Medicati on ID: [id number] D uration Value: 30 Brand Name: trazodon e Send Method: E-Prescr ibed Sub s Allowed: subs OK Melany al Instruct ion: TAKE 1-2 TABLETS BY MOUTH AT BEDTIME Medicati onGeneri cName: trazodon e Medica tion ID: [id number] D uration Value: 30 Brand Name: trazodon e Send Method: E-Prescr ibed Sub s Allowed: subs OK Melany al Instruct ion: TAKE 1-2 TABLETS BY MOUTH [...] topical cream 11/20 completed Medicati on ID: [id number] Rc bess By Name: RENAY Nance nd Name: Lotrison e Send Method: E-Prescr ibed Sub s Allowed: subs OK Speci al Instruct ion: apply to external ear tid X 2 weeks Me dication GenericN paul: Lotrison e Medica tion ID: [id number] P iram bess By Name: RENAY Nance [...] elayed release 2016 active Medicati on ID: [id number] B rand Name: Prevacid Send Method: E-Prescr ibed Sub s Allowed: subs OK Medic ationGen ericName : Prevacid Not Available Not Available Not Available Macrobid 100 mg capsule 2016 active Medicati on ID: [id number] B rand Name: Macrobid Send Method: E-Prescr ibed Sub s Allowed: subs OK Medic ationGen ericName : Macrobid Not Available Not Available Not Available ofloxacin 0.3 % ear drops 11/14 completed Medicati on ID: [id number] Du ration Value: 10 Reason: () Brand Name: ofloxaci n Send Method: E-Prescr ibed Sub s Allowed: subs OK Medic ationGen ericName : ofloxaci n Not Available Not Available Not Available famotidin e 20 mg tablet TAKE ONE TABLET BY MOUTH EVERY DAY AT BEDTIME active Not Available Not Available No t Available ropinirol e 0.25 mg tablet 2016 active Medicati on ID: [id number] D uration Value: 30 Brand Name: ropiniro le Send Method: E-Prescr ibed Sub s Allowed: subs OK Speci al Instruct ion: TAKE TWO TABLETS BY MOUTH ONCE DAILY AT BEDTIME Medicati onGeneri cName: tato cervantes Not Available Not Available Not Available doxycycli ne monohydra te 100 mg capsule 05/22 completed Medicati on ID: [id number] Du ration Value: 10 Brand Name: doxycycl [...] topical solution 05/22 completed Medicati on ID: [id number] Rc bess By Name: RENAY Nance nd [...] mg tablet 11/20 completed Medicati on ID: [id number] D uration Value: 30 Brand Name: furosemi de Send Method: E-Prescr ibed Sub s Allowed: subs OK Speci al Instruct ion: TAKE 1 TO 2 TABLETS ONCE DAILY BY MOUTH Me dication GenericN paul: furosemi de Medic ation ID: [id number] D uration Value: 30 Brand Name: furosemi [...] 4 drop 11/20 completed Medicati on ID: [id number] D uration Value: 14 Prescri bed By Name: RENAY Cardenas nd Name: TobraDex Send Method: E-Prescr ibed Sub s Allowed: subs OK Speci al Instruct ion: apply to right ear as prescrib ed Medic [facility] ericName : TobraDex Medicat ion ID: [id number] D uration Value: 14 Prescri bed By Name: RENAY Cardenas nd Name: TobraDex Send Method: E-Prescr ibed Sub s Allowed: subs ADIN Specozzie al Instruct ion: apply to right ear as prescrib ed Medic [facility] ericName : TobraDex Not Available Not Available [...] 4 drop 11/20 completed Medicati on ID: [id number] D uration Value: 14 Prescri bed By Name: Ade RENAY Johnson nd Name: Ciprodex Send Method: E-Prescr ibed Sub s Allowed: subs OK Medic ationGen ericName : Ciprodex Medicat ion ID: [id number] D uration Value: 14 Prescri bed By Name: Ade RENAY Johnson nd Name: Ciprodex Send Method: E-Prescr ibed [...] Updated DateTime 11/21/2023 148.59 cm 40.5 kg/m2 25451.7 g Manisha Nam MA [facility] 11/21/2023 11:31:13 Date Recorded Body height Body mass index (BMI) Body weight Provider Name and Address Organization Details Last Updated DateTime 01/16/2024 148.59 cm 40.5 kg/m2 30254.7 g Carola Kebede [place] [facility] 01/16/2024 13:20:29 Social History None recorded. Functional Status None [...] martinez [place] - [facility] 11/21/2023 11:38:19 Pneumococcal conjugate PCV 13 2 completed Manisha martinez [place] - [facility] 11/21/2023 11:38:36 Past Encounters Encounter ID Performer Location Encounter Start Date Encounter Closed Date Diagnosis/Indication Diagnosis SNOMED-CT Code Diagnosis ICD10 Code Diagnosis Note [id number] ADE JOHNSON PA-C [facility] on [address] [place] [id number] [id number] 11/21/2023 10:56:00 11/23/2023 13:14:35 Gastroesophageal reflux disease without esophagitis 719680988 K21.9 Chronic hoarseness 21590 19583 105 R49.0 Allergic rhinitis 354395 04 J30.9 [id number] ADE JOHNSON PA-C [facility] on [address] [place] [address] [id number] 01/16/2024 13:15:07 01/16/2024 13:41:34 Chronic hoarseness 3527507124 105 R49.0 Gastroesop hageal reflux disease without esophagitis 436545983 K21.9 Health Concerns Section Related Observation LastModified by Organization Detai ls LastModified Time None Recorded Concern Status LastModified by Organization Details LastModified Time None Recorded Advance Directives Directive None Recorded Payers Insurance Date Sequence Insurance Name Policy Number Policy Pedroza Covered Member ID Pedroza Member ID Guarantor Name 01/13/2024 1 [place] [employer] Nery A Soderstrom [id number] Nery Soderstrom 01/17/2024 2 [place] [facility] Nery Soderstrom [id number] Nery Soderstrom Notes Date Note Type Note [...] martinez [place] - [facility] 11/21/2023 12:07:04 01/16/2024 text/html 72 year old [...] martinez [place] - [facility] 01/16/2024 13:40:15 OBGyn Episode No OBEpisode recorded.
== END 2025-01-05 13:32 | disposition home or self-care (01) ==
LOC: HO.HUSH 12:57
PROVIDERS: PCP Internal Medicine; Visit Provider Nurse Practitioner Family
DX: R32 Unspecified urinary incontinence (principal); N28.1 Cyst of kidney, acquired; Z13.9 Encounter for screening, unspecified
CPT/HCPCS: 99213; G2211

== ENCOUNTER → 2025-01-05 12:57 | Outpatient (BNVA) | payer MEDICARE, MEDICAID, SELFPAY | PROVIDERS: PCP Internal Medicine; Visit Provider Nurse Practitioner Family | DX: N28.1 Cyst of kidney, acquired (principal); R32 Unspecified urinary incontinence | CPT/HCPCS: 51798; 81003; 99212 ==

== ENCOUNTER 2025-04-09 11:00 | Outpatient (RCR) | payer MEDICARE, MEDICAID, SELFPAY ==
--- NOTE | 2025-01-20 13:18 | MHC.PT.EP ---
[facility] Office [place] [facility] [place] [facility] [address] Angi Zaidi [address] [phone] F: [phone] F: [phone] F: [phone] F: [phone] Physical Therapy Plan of Care Date of Evaluation: 01/20/25 Date of Surgery: Diagnosis: unspecified UI Assessment: 74 y/o female referred to PT with UI. She presents with MILAGRO with coughing, sneezing, laughing and will sometimes have UUI. Also presents with constipation. Pt provided consent for pelvic floor assessment and will assess next visit d/t time constraints. Currently she presents with decreased hip/ core strength, impaired breathing mechanics, and impaired postural awareness. Of note, she had a recent L tibialis anterior tendon repair and is in a walking boot. Recommend PT 1x/week for 8 weeks to address impairments, implement HEP, and optimize functional mobiltiy Frequency and Duration: The patient will be seen 1x/week for 8 weeks Short Term Goals: 4 weeks Pt will be I with body mechanics and toileting technique to reduce pelvic pressure I with ILU bowel massage for improved motility of colon Accounting Manager Assistant Controller Goals: Pt to be able to show improved PFM contraction during functional movements such as a bridge or squat to help prevent or limit POP. Pt to reduce # of episodes of MILAGRO during the day by 50% to help improve quality of life and reduce pad usage. Pt to be independent with her final HEP for PFM in order to help maintain gains made in therapy. Treatment Plan: Modalities to reduce pain, spasms and effusion. Manual therapy to restore motion and function. Therapeutic exercise to improve strength and flexibility. Neuromuscular re-education for posture and balance. Therapeutic activities to return to functional activities of daily living. Electronically signed by: Please sign and return to therapist. Thank you for your referral.
--- NOTE | 2025-05-07 08:43 | MHC.PT.DC ---
[facility] [place] [facility] [place] [facility] [address] Angi Zaidi [address] [phone] F: [phone] F: [phone] F: [phone] F: [phone] Physical Therapy Discharge Report Diagnosis: unspecified UI Date of Surgery: Date of Evaluation: 01/20/25 Date of Discharge: 05/07/25 Treatments to Date: 6 Cancellations to Date: 0 No Shows to Date: 0 Discharge Status: Independent with HEP Patient Elected to Stop Discharge Summary: Pt called to self discharge reporting other health concerns and too busy in life right now. At time of last visit, pelvic floor was re-assessed and initially there was no change. However with biofeedback and cueing, pt able to perform pelvic floor contraction. Re-education provided on performing pelvic floor contractions with hip d/t noted descent of tissues with coughing. Also reviewed the knack. SHe was I with HEP and is d/c at this time. Electronically signed by: Gwen Eden PT Please sign and return to therapist. Thank you for your referral.
== END 2025-05-07 08:43 | disposition home or self-care (01) ==
LOC: HO.PT 11:00
PROVIDERS: PCP Internal Medicine; Visit Provider Nurse Practitioner Family
DX: N39.46 Mixed incontinence (principal)
CPT/HCPCS: 97112; 97140; 97162